=== PATIENT | male | born 1950 | race Caucasian/White ===

== ENCOUNTER 2020-07-29 06:27 | Day surgery (SDC) | payer OTHER, MEDICARE ==
[2020-07-23 09:06] LABS: Absolute Lymphocytes (CBC) 1.8 K/uL (0.7-4.9); Basophils % 0.6 % (0-1.3); Hematocrit 38.5 % (39.6-49.0); Lymphocytes % 18.1 % (15.3-44.8); MPV 7.5 fL (7.6-11.3); RBC Red Blood Cell Count 4.38 M/uL (4.33-5.43)
[2020-07-23 09:07] LABS: Protime INR 0.95
--- NOTE | 2020-07-23 09:08 | RAD REPORT ---
EXAM DESCRIPTION: RAD - Chest Pa And Lat (2 Views) - 07/23/2020 9:01 am CLINICAL HISTORY: PREOP Chest pain. COMPARISON: Stone Protocol dated 07/08/2020 FINDINGS: The lungs are clear. The heart is normal in size. No displaced fractures. IMPRESSION: No acute or concerning finding suspected.
[2020-07-23 10:48] LABS: Potassium 4.3 mmol/L (3.5-5.1)
--- NOTE | 2020-07-24 05:14 | EKG ---
Test Date: 2020-07-23 Test Time: 08:39:18 Emergency Veterinary Technician: JOHAN MEASUREMENT RESULTS: Intervals: Rate: 71 OR: 154 QRSD: 94 QT: 410 QTc: 445 [place]: P: 72 OR: 154 QRS: -17 T: 62 INTERPRETIVE STATEMENTS: Normal sinus rhythm Normal ECG No previous ECG available for comparison Electronically Signed On 07-24-20 05:11:26 SPECIAL NEEDS TEACHER by Kenny Arceo
[2020-07-29] MEDS ORDERED: CEFAZOLIN/SWI 2gm 2 GM/20 ML SYR ONE (07:09)
[2020-07-29] MEDS ORDERED: Ringers Lactate 1,000 ML IV ONE (07:09)
[2020-07-29] MEDS ORDERED: propofoL 200 MG/20 ML VIAL IV ONE (07:39)
[2020-07-29] MEDS ORDERED: FENTANYL CITR 100 MCG/2 ML ONE (07:39)
[2020-07-29] MEDS ORDERED: LIDOCAINE 1% MPF 5 ML VIAL ONE (07:39)
[2020-07-29] MEDS ORDERED: ONDANSETRON 4 MG/2 ML VIAL ONE (08:34)
--- NOTE | 2020-07-29 08:48 | RAD REPORT ---
EXAM DESCRIPTION: RAD - Urethrocystogrphy Retrograde - 07/29/2020 8:42 am CLINICAL HISTORY: ICD N 20.0 FINDINGS: Twenty fluoroscopic spot images obtained. Fluoroscopy time 57 seconds Each ureter was cannulated and contrast administered.. Examination was performed by Dr Shelton. Bhavani yañez refer to his report for additional findings
[2020-07-29 09:03] VITALS: O2SAT 100
[2020-07-29] MEDS ORDERED: HYDROCODONE/APAP 5/325 MG TAB PO PRN (09:18)
[2020-07-29] MEDS ORDERED: PHENAZOPYRIDINE 100MG TAB PO ONE (09:18)
[2020-07-29] MEDS ORDERED: OPIUM/BELLADONNA SUPPOS (30-16.2 MG) PR ONE (09:39)
[2020-07-29 09:55] VITALS: BP 129/77; TEMP 97.1
[2020-07-29] MEDS ORDERED: HYDROCODONE/APAP 5/325 MG TAB ONE (10:05)
--- NOTE | 2020-07-29 10:31 | OP ---
Surgeon: REKHA DAVIS Preoperative Diagnoses: 1. Abnormal voided cytology. 2. Hematuria. Postoperative Diagnoses: 1. Abnormal voided cytology. 2. Hematuria. 3. Questionable right mid pole posterior calyx filling defect. Procedures: 1. Cystoscopy and random bladder biopsies. 2. Bilateral retrograde pyelographies. 3. Bilateral ureteral wash barbotage cytologies. 4. Right distal ureteroscopy. 5. Right ureteral stent placement. 6. Urethral Hurt catheter placement. Indication For Procedure: Mr. Grace presented to Urology Clinic for evaluation of hematuria. He had associated chronic kidney disease and was unable to receive IV contrast associated with the CT planned urogram. As such, the noncontrast CT was relatively unremarkable as was the cystoscopy, but voided cytology sent in evaluation of the upper tracts in the absence of the IV contrast administration and delayed phase scanning revealed cells suspicious for high-grade urothelial carcinoma. As a result, he was counseled on the need for evaluation as described above. Procedure In Detail: The patient was consented in the preoperative holding area before being transferred to the operative suite where general anesthesia was induced. He was given Ancef 2 g IV antimicrobial prophylaxis and pneumo boots were provided for DVT prophylaxis. He was placed in the lithotomy position, padded and secured to the table appropriately. His genitalia were prepped using Hibiclens, and he was draped in standard fashion. The case was begun using a 22-South African rigid cystoscope to traverse the urethra and into the bladder with ease. The bladder was again surveyed, and as previously observed, no mucosal lesions, foreign bodies or stones were noted throughout. The ureteral orifices were orthotopic in location. The left ureteral orifice was cannulated first and a retrograde pyelogram was performed. Left retrograde pyelography: Using a 70:30 mixture of Omnipaque and saline, contrast was injected via the lumen of a 5-South African ureteral access catheter, which had been inserted into the ureteral orifice on the left side. Contrast did propagate with ease of a nondilated ureter without any evidence of filling defect before entering a normal renal pelvis without any evidence of caliectasis or pelviectasis and no sign of filling defect observed. As a result, the contrast was allowed to emanate and drain from the kidney on the left side and urine was taken for barbotage cytology from the left side. While this was being done, I turned my attention to the right ureteral orifice which was separately cannulated using the tip of a 5-South African ureteral access catheter. Right retrograde pyelogram: Using that similar 70:30 mixture of Omnipaque and saline, that contrast mixture was again injected via the 5-South African ureteral access catheter and did propagate up a relatively nondilated ureter into the renal pelvis on the right side. No ureteral filling defects were noted and the calices were sharp without any evidence of pelvocaliectasis. With the initial contrast bolus, the upper pole and lower pole calices did delineate as well as a mid pole anterior calyx, but a mid pole what was suspected to be posterior calyx did not completely delineate. As a result, a repeat fluoroscopic imaging was performed with gentle increasing contrast boluses being administered, and yet despite this, I was unable to completely fill the right mid pole posterior calyx. Eventually, there was evidence of pyelovenous reflux of the contrast, and so I then elected to attempt right-sided ureteroscopy to evaluate that potential filling defect. I then passed a Sensor wire via the 5-South African ureteral access catheter with a coil observed fluoroscopically in the upper pole of the right kidney. I then passed over the Sensor wire a dual-lumen catheter into the mid distal ureter before it reached a point of resistance. Gentle contrast injection did confirm the adequate intraureteral localization of the wire and the dual-lumen catheter. I then placed a Bentson guidewire via the second lumen of the dual-lumen catheter alongside the Sensor wire into the upper pole of the kidney. I then attempted to perform ureteroscopy via the Bentson guidewire, but the ureteroscope would not pass beyond the ureteral orifice. As a result, I employed the ureteral access sheath into the ureteral orifice and distal ureter. The ureteral access sheath similarly met a point of resistance in the mid distal ureter. I thus passed the ureteroscope via the ureteral access sheath over the wire until it reached the point of obstruction. I then removed the wire and utilized pressurized saline irrigation to visualize the point of obstruction and it was revealed to be an area of likely ureteral spasm with extreme tightening around the indwelling Sensor wire. As a result, despite gentle attempts to navigate the ureteroscope using pressurized irrigation beyond the point of obstruction, I was unable to pass the ureteroscope into the mid or proximal ureter in order to survey the mid pole posterior calyx in question. As a result, I aborted further attempts at ureteroscopy and back-loaded the cystoscope over the indwelling safety wire and placed a 6-South African by 26 cm double-J right-sided ureteral stent. I then turned my attention to the bladder, which was decompressed of urine and any blood clot from the manipulation on the right side, and I performed random bladder biopsies. Prior to doing this, however, and of note, prior to removing the dual-lumen catheter prior to his stent placement as mentioned above, I did take ureteral wash cytology from the right side, which was sent as right ureteral barbotage cytology back to the bladder biopsies. Random bladder biopsies: I then used cold cup biopsy forceps to sample the bladder in the trigone, posterior dome, left lateral wall, and right lateral wall. Each of these specimens was sent for pathologic analysis and then the base of each of these lesions was fulgurated using Bugbee electrode at a cautery setting of 30. I then decompressed his bladder to confirm complete hemostasis, and when hemostasis was noted, I refilled his bladder and placed an 18-South African coude tip Hurt catheter to allow bladder rest. The patient was then taken out of the lithotomy position, awakened from general anesthesia, transferred to a stretcher and then transferred to the recovery room in good condition. Complications: None. Specimens Taken: 1. Left ureteral wash cytology. 2. Right ureteral wash cytology. 3. Bladder biopsies: Trigone, posterior, dome, left lateral wall, right lateral wall. Disposition: The patient will be discharged with the urethral Hurt catheter in place for bladder rest for 24 hours. The catheter may be removed tomorrow at home assuming they are able to do so and will be instructed prior to discharge on how to accomplish that. Followup should be established in 1-2 weeks to discuss the results of the pathology of each of the specimens above, and also to determine timing for planned right-sided definitive ureteroscopy and visualization of the mid pole posterior calyx filling defect in question. GURPREET/MODL Voice ID: [id number] Report ID: [id number] MALICK
== END 2020-07-29 10:30 | disposition home or self-care (01) ==
LOC: OR 06:27
PROVIDERS: ATTEND Urology
PROC: 0TBB8ZX Excision of Bladder, Via Natural or Artificial Opening Endoscopic, Diagnostic (ICD-10-PCS; principal; 2020-07-29 07:30)
PROC: 0T768DZ Dilation of Right Ureter with Intraluminal Device, Via Natural or Artificial Opening Endoscopic (ICD-10-PCS; 2020-07-29 07:30)
DX: R82.90 Unspecified abnormal findings in urine (principal); R31.9 Hematuria, unspecified; N40.1 Benign prostatic hyperplasia with lower urinary tract symptoms; Z20.822 Contact with and (suspected) exposure to COVID-19
CPT/HCPCS: 93005; 87088; 85025; 87086; 80048; 36415; 88108; 85610; 88305; 71046; 74450; 51610; 52204; 52332; 52351; U0002; J2704; J3010; J0690; J7120; J2405

== ENCOUNTER 2020-09-02 08:29 | Day surgery (SDC) | payer OTHER, MEDICARE ==
[2020-08-29 15:29] LABS: Absolute Lymphocytes (CBC) 2.1 K/uL (0.7-4.9); Basophils % 0.8 % (0-1.3); Hematocrit 33.7 % (39.6-49.0); Lymphocytes % 31.5 % (15.3-44.8); MPV 7.6 fL (7.6-11.3); RBC Red Blood Cell Count 3.85 M/uL (4.33-5.43)
[2020-08-29 15:30] LABS: Protime INR 0.97
[2020-08-29 15:37] LABS: Potassium 4.4 mmol/L (3.5-5.1)
[~2020-09-02 08:29] MED LIST: AMPICILLIN SODIUM 2 GM in NA CHLORIDE 0.9% 100 ML IVPB ONE; Gentamicin Inj 200 MG in NA CHLORIDE 0.9% 100 ML IVPB ONE
[2020-09-02] MEDS ORDERED: Ringers Lactate 1,000 ML IV ONE (09:03)
[2020-09-02] MEDS ORDERED: FENTANYL CITR 100 MCG/2 ML ONE ×2 (10:13→11:43)
[2020-09-02] MEDS ORDERED: LIDOCAINE 1% MPF 5 ML VIAL ONE (10:13)
[2020-09-02] MEDS ORDERED: propofoL 200 MG/20 ML VIAL IV ONE (10:13)
[2020-09-02] MEDS ORDERED: ONDANSETRON 4 MG/2 ML VIAL ONE (10:19)
[2020-09-02] MEDS ORDERED: Mastisol Adhesive Liq ONE (12:00)
[2020-09-02] MEDS ORDERED: PHENAZOPYRIDINE 100MG TAB PO ONE ×2 (12:13→13:00)
[2020-09-02] MEDS ORDERED: HYDROCODONE/APAP 5/325 MG TAB PO PRN (12:13)
--- NOTE | 2020-09-02 12:19 | RAD REPORT ---
EXAM DESCRIPTION: RAD - Urethrocystogrphy Retrograde - 09/02/2020 11:49 am FINDINGS: Fluoro time was 0.37 minutes. There are approximately 25 fluoroscopic KUB images obtained during fluoroscopic assisted replacement and/or repositioning of a right ureteral stent. No suspicious or unexpected finding.
[2020-09-02 12:21] VITALS: O2SAT 100
[2020-09-02 12:49] VITALS: BP 164/90; TEMP 97
[2020-09-02] MEDS ORDERED: HYDROCODONE/APAP 5/325 MG TAB ONE (13:00)
--- NOTE | 2020-09-02 13:58 | OP ---
Date of Procedure: 09/02/2020 Surgeon: REKHA DAVIS Preoperative Diagnoses: 1.Abnormal voided/urinary cytology. 2.Right upper tract calyceal filling defect. Postoperative Diagnoses: 1.Abnormal voided/urinary cytology. 2.Right upper tract calyceal filling defect. Principle Procedures: 1.Cystoscopy. 2.Transurethral resection of the prostate/prostatic urethral biopsies. 3.Right ureteroscopy and pyeloscopy. 4.Right ureteral stent exchange. Indication For Procedure: Mr. Grace is a 70-year-old gentleman, who underwent evaluation for hemat uria with chronic kidney disease and a CT scan completed without IV contrast. He had a voided cytolo gy which was suspicious for urothelial malignancy; so he earlier presented to the operating room for evaluation and underwent bladder biopsies as well as left retrograde pyelography and right retrograde pyelography. There was a questionable lower pole posterior calyx filling defect, which required fur ther evaluation and direct visualization, but because of some ureteral stenosis/spasm, I was unable t o pass the ureteroscope all the way into his kidneys. As a result, a stent was placed and he returns today for definitive management. Prior biopsies of the bladder and bilateral ureteral wash cytologi es were negative for malignancy. The remnant areas needing evaluation included the prostatic urethra and direct visualization of the possible filling defect in the right lower and mid pole calyx. Procedure In Detail: The patient was consented in the preoperative holding area before being transfe rred to the operative suite where general anesthesia was induced. He was given ampicillin and gentam icin IV antimicrobial prophylaxis. Pneumo boots were provided for DVT prophylaxis. He was placed woo pine on the procedure table, padded and secured to the table appropriately. The case was begun after prepping his genitalia with Hibiclens using urethral sounds to dilate the meatus and fossa navicular is. Then utilizing a visual obturator and the 26-Prydeinig resectoscope, I traversed the urethra and in to the bladder. The bladder was decompressed of clear yellow urine, and the areas of prior biopsy si karen revealed only mild mucosa that was hemorrhagic. I then surveyed the prostatic urethra. While th ere was some edematous area within the right component of the prostatic urethra and likely from the i rritation from the ureteral stent, no suspicious mucosal lesions were noted. 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 Each of these were sent for pathologic analysis. I then identified the right ur eteral stent, grasped it, and delivered via the meatus. A Sensor wire was then passed via the stent and did coil in the mid upper ureter. The stent was removed over the wire, and a dual-lumen catheter was placed into the mid ureter. A retrograde pyelogram was then performed. Right retrograde pyelography: Using a 70:30 mixture of Omnipaque and saline, contrast was injected via the second lumen of the dual -lumen catheter and did propagate up the ureteral lumen before entering a moderately dilated renal pe lvis from the indwelling stent. No filling defects were specifically noted with the exception of a p ossible atretic or missing lower pole posterior calyx. As this had been previously observed, I then passed a Bentson guidewire into the collecting system via the second lumen of the dual-lumen catheter , and over the Bentson guidewire, I attempted to pass the flexible ureteroscope. It would not pass b eyond the distal ureter due to an area of stenosis there present despite the stent. As a result, I r emoved the scope and passed a ureteral access sheath into the mid proximal ureter beyond the area of stenosis. I was then able to pass the scope over the indwelling Bentson guidewire into the upper dorothea e of the kidney. I then carefully surveyed each of the calices from the upper into the mid pole and lower pole calices including the area of suspected excluded calyx. It was not indeed excluded, in fa ct, it was just a blunted calyx which likely did not appear distinct given the anterior-posterior flu oroscopic imaging technique. Each of the calices were again surveyed in detail after an antegrade py elogram was again performed to confirm they had all been visualized, and even some areas of calyx laina t more visible via the pyelography. No concerning mucosal lesions were noted in either of those loca tions. No foreign bodies or stones were also noted. As a result, I surveyed the renal pelvis and it s entirety before surveying down the proximal into the mid and distal ureter. With no filling defect s or mucosal lesions noted along the way, ureteroscopy was completed. I then back-loaded the cystosc ope over the indwelling safety wire and passed a 6-Prydeinig by 26 cm double-J right ureteral stent with a coil observed fluoroscopically within the upper pole and 1 cystoscopically within the bladder. Hi s bladder was then decompressed of fluid and urine, and the stent was left on a tether. The stent wa s then secured to the glans penis using Mastisol and Steri-Strips, and he was taken out of the lithot jack position. He was then awakened from general anesthesia before being transferred to a stretcher a tn then to the recovery room in good condition. Complications: None. Estimated Blood Loss: Less than 20 mL. Discharge Disposition: He may follow up in the Urology Clinic with nurse practitionerAleln in the next 2 or 3 days for tethered ureteral stent removal. A dose of antimicrobial prophylaxis may be provided at that time. Subsequent followup of the pathology from the prostatic urethral biopsies should occur with me in the office in approximately 1-2 weeks. GURPREET/VICTOR HUGO Voice ID: [id number] Report ID: [id number]
== END 2020-09-02 13:26 | disposition home or self-care (01) ==
LOC: OR 08:29
PROVIDERS: ATTEND Urology
PROC: 0T768DZ Dilation of Right Ureter with Intraluminal Device, Via Natural or Artificial Opening Endoscopic (ICD-10-PCS; 2020-09-02)
PROC: 0TBD8ZX Excision of Urethra, Via Natural or Artificial Opening Endoscopic, Diagnostic (ICD-10-PCS; principal; 2020-09-02 09:30)
DX: N40.1 Benign prostatic hyperplasia with lower urinary tract symptoms (principal); R82.90 Unspecified abnormal findings in urine; Z20.822 Contact with and (suspected) exposure to COVID-19
CPT/HCPCS: 52204; 52332; 52351; 85025; 87086; 80048; 36415; 85610; 88305; 74450; 51610; U0003; J2704; J1580; J3010 ×2; J7120; J2405; J0290; 87088

== ENCOUNTER 2022-07-09 15:53 | Emergency (ER) | payer OTHER, MEDICARE ==
--- OUTSIDE RECORDS SUMMARY | 2022-07-09 16:28 | XMS REPORT | Continuity of Care Document ---
:1950 Author Organization [facility] t Address [address] [place] [address] Dr. Ch[address] [place] [address] Care Team Providers Name Role Phone No, Pcp [facility] Primary Care Physician Unavailable Robin Brice Attending Clinician Unavailable REKHA DAVIS Attending Clinician Unavailable Rekha Davis MD Attending Clinician Aubrey Sales MD Attending Clinician Mecca Acuna CRNA Attending Clinician Omega GUIDO, Юлия Rosen Attending Clinician Unavailable Joel Yoon MD Attending Clinician Lab, [facility] Pob I Attending Clinician Unavailable Patricia Blackman Attending Clinician Doctor Unassigned, [place] Attending Clinician Unavailable Gene Attending Clinician Unavailable Gwendolyn RIVAS, Dmitriy Etienne Attending Clinician Ave Johnson Attending Clinician Clemente Jackson Attending Clinician REKHA DAVIS Admitting Clinician Unavailable Gene Admitting Clinician Unavailable Payers Payer Name Policy Type Policy Number Effective Date Expiration Date S ource MEDICARE A B [id number] 2014 00:00:00 [facility] [id number] 2022 HEALTHCARE 00:00:00 TML GBRP CLAIMS [id number] 2017 00:00:00 [place]IC[place] B[place]: [id number] 2014 [employer] 00:00:00 HEALTH SYSTEM [id number] 2019 OPTIONS (MEDICARE 00:00:00 SUPPLEMENT) Problems Condition Condition Condition Status Onset Resolution Last Treating Co mments Source Name Details Category Date Date Treatment Clinician Date 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, of kidney, 00:00: Me dical left left Center Hyperchole Hyperchole Problem Active M atagor sterolemia sterolemia 8-27 da 00:00: Medical 00 Group M54.5 - M54.5 - Diagnosis Active 2018-052019-02-26 Memoria LOW BACK LOW BACK 0-14 07:51:00 l PAIN PAIN 00:01: Gil Active 00 02/26/2019 NATASHA [place] RIGHT EYE RIGHT EYE Diagnosis Active 2013-10-15 Memoria RETINAL RETINAL 2-17 16:23:00 l DETACHMENT DETACHMENT 00:00: [facility] 379.21 379.21 00 Active 07/02/2013 [facility] [id number] Prostate Problem [place] [address]197 nodule [facility] [id number] Erectile Problem Comm on dysfunctio Spirit n, - [facility] un[facility] d erectile [facility] dysfunctio Medica l n type Thor [id number] Constipati Problem Com mon on, Spirit unspecifie - [facility] d St constipati [facility] on [facility] [id number] Microscopi Problem Co mmon c Spirit hematuria - [facility] [id number] BPH loc w Problem Com mon urin Spirit obs/LUTS - [facility] [id number] 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 St present on [facility] urine Medical cytology Center [id number] Abnormal Problem Comm on bladder [facility] cytology [facility] Disorder Other Problem Common of kidney specified Spir it and/or disorders - CHI ureter of kidney St and ureter [facility] Renal mass Renal mass Problem C ommon Spirit [facility] 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 - [facility] inhibited Center sexual excitement Chronic Chronic Problem Resolve 2019-02-28 M emoria back pain back pain d 22:42:23 l (disorder) (disorder) He rmann Resolved Problem 02/28/2019 NATASHA Cordero,[facility] Hyperlipid Hyperlipi Problem Resolve 2019-02-28 Memoria emia demia d 22:42:23 l (disorder) (disorder) He rmann Resolved Problem 02/28/2019 [facility] disc(Confi disc(Conf Problem Resolve 2013-07-05 Memoria rmed) irmed) d 16:42:33 l Resolved Gil Problem 07/05/2013 [facility] Allergies, Adverse Reactions, Alerts Allergy Allergy Status Severity Reaction(s) Onset Inactive Treating Comm ents Source Name Type Date Date Clinician LACTASE DRUG Active Other-Cmnt 2017-05 Unive rs INGREDI 0-08 ity of 00:00: [address] Branch Lactase Drug Active 2017-[address] Allergy 0-08 reaction( [facility] 00:00: s): Other Medical 00 - See Center commentsh eadache LACTASE Allergy Active 2017-[address] [facility] 0-08 [facility] 00:00: Medical Center No Known No Known Active Memori a Medicati Medicati l on on Gil Allergie Allergie s s Lactase Lactase Active Unknown [facility] - [facility] Social History Social Habit Start Date Stop Date Quantity Comments Source History SDOH [facility] Alcohol Frequency Medical Center History SDOH [facility] Alcohol Std Drinks Medica l Center History SDOH [facility] Alcohol Binge Medical [facility] ter History of tobacco [facility]oker [facility] use [facility] Alcohol intake 2022-07-06 2022-07-06 Ex-drinker [facility] 00:00:00 00:00:00 (finding) Medical Center Exposure to 2022-06-25 2022-07-[address] [facility] SARS-CoV-2 (event) 00:00:00 08:30:00 Medica l Center Cigarettes smoked 2022-06-09 2022-06-[address] [facility] current (pack per 00:00:00 00:00:00 Medical Center day) - Reported Tobacco use and 2022-06-09 2022-06-[address] [facility] exposure 00:00:00 00:00:00 Medical Center History SDOH 2022-06-09 2022-06-[address] [facility] Alcohol Comment 00:00:00 00:00:00 Medical C enter Sex Assigned At [address] [facility] 00:0000 00:00:00 Medical Center Smoking Status Start Date Stop Date Source Light Tobacco Smoker Zoë Lopez edical Group Former smoker 2022-06-09 00:00:00 2022-06-09 00:00:[address] [facility] [facility] Current Smoker 2022-06-03 00:00:00 Common [facility] t [facility] Medical Ce nter Medications Ordered Filled Start Stop Current Ordering Indication Dosage Frequency Signature Comments Components Source Medication Medication Date Date Medication? Clinician (SIG) Name Name rosuvastati Yes 20mg QD Take [address] n (CRESTOR) 2-23 by mouth Luke s 20 MG 15:24: daily. Medical tablet 52 Center losartan Yes 25mg QD Take [address] (COZAAR) 25 2-23 by mouth Luke s MG tablet 15:24: daily. Medica l 52 Center pantoprazol Yes 40mg QD Take [address] e 2-23 by mouth [facility]ukes (PROTONIX) 15:24: daily. Medic al 40 MG 52 Center tablet aspirin 81 Yes 81mg QD Take [address] MG EC 2-23 by mouth [facility]ukes tablet 15:24: daily. [place] [address] Center dorzolamide Yes 1[drp] Q.5D Place [address] (TRUSOPT) 2 2-23 drop into [place] es % 15:24: the right Medical ophthalmic 52 eye 2 Center solution (two) times daily. latanoprost Yes 1[drp] QD Place [address] (XALATAN) 2-23 drop into [facility] 0.005 % 15:24: the right Medic al ophthalmic 52 eye Center solution nightly. acetaminoph 2022- Yes 650mg Take [address] en 2-23 03-25 tablets [facility] (TYLENOL) 00:00: 23:59 (650 mg Medi ham 325 MG 00 :00 total) by Center tablet mouth every 6 (six) hours for 30 days. docusate 2022- Yes 100mg Q.5D Take 1 [facility] S t sodium 07-08 capsule [facility]ukes (COLACE) 00:00: 23:59 (100 mg Medic al 100 MG 00 :00 total) by Center capsule mouth 2 (two) times daily for 30 days. lidocaine 2022- Yes 2{patch Q24H Place [address] (LIDODERM) 07-08 } patches [facility] 5 % patch 00:00: 23:59 onto the Med ical 00 :00 skin daily Center for 15 days Remove & Discard patch within 12 hours or as directed by . polyethylen 2022- Yes 17g Q.5D Take [address] e glycol 07-08 by mouth 2 Luke s (GLYCOLAX) 00:00: 23:59 (two) Medic al 17 gram 00 :00 times Center packet daily for 14 days. traMADoL 2022- Yes 50mg Take [address] (ULTRAM) 50 07-08 tablet (50 L ukes mg tablet 00:00: 23:59 mg total) Me dical 00 :00 by mouth Center every 8 (eight) hours as needed for Pain for up to 5 days. Max Daily Amount: 150 mg levoFLOXaci 2022- Yes 500mg QD Take [address] n 07-08 tablet [facility]ukes (LEVAQUIN) 00:00: 23:59 (500 mg Med ical 500 MG 00 :00 total) by Center tablet mouth daily for 3 days Start taking 1 day before your appointmen t for catheter removal with Dr. Davis. Tamsulosin Tamsulosin 2021-05- No 1{capsu QD Tamsulosin HCl 0.4 MG HCl 0.4 MG 06-17 le} HCl 0.4 MG 00:00: 00:00 00 :00 Tamsulosin Tamsulosin 2021-05- No 1{capsu QD Tamsulosin HCl 0.4 MG HCl 0.4 MG 06-17 le} HCl 0.4 MG 00:00: 00:00 00 :00 Tamsulosin Tamsulosin 2021-05- No 1{capsu QD Tamsulosin HCl 0.4 MG HCl 0.4 MG 06-17 le} HCl 0.4 MG 00:00: 00:00 00 :00 Tamsulosin Tamsulosin 2021-2022- No 1{capsu QD Tamsulosin HCl 0.4 MG HCl 0.4 MG 06-17 le} HCl 0.4 MG 00:00: 00:00 00 :00 Tamsulosin Tamsulosin 2021-3- No 1{capsu QD Tamsulosin HCl 0.4 MG HCl 0.4 MG 06-17 le} HCl 0.4 MG 00:00: 00:00 00 :00 Tadalafil Tadalafil 2021-2022- No Tadalafil 20 MG 20 MG 06-17-30 20 MG 00:00: 00:00 00 :00 Tadalafil Tadalafil 2021-2022- No Tadalafil 20 MG 20 MG -06 21-30 20 MG 00:00: 00:00 00 :00 Tadalafil Tadalafil 2021-3- No Tadalafil 20 MG 20 MG 06-17-30 20 MG 00:00: 00:00 00 :00 Tadalafil Tadalafil 2021-3- No Tadalafil 20 MG 20 MG 06-17-30 20 MG 00:00: 00:00 00 :00 Tadalafil Tadalafil 2021-3- No Tadalafil 20 MG 20 MG - 06-30 20 MG 00:00: 00:00 00 :00 TRAMADOL 50 2020-0 Yes [id number] TAKE 1 Univers mg tablet 4-09 TABLET BY ity o f 00:00: MOUTH EVERY 8 Medical HRS Branch NEEDED FOR PAIN TRAMADOL 50 2020-0 Yes [id number] TAKE 1 Univers mg tablet 4-09 TABLET BY ity o f 00:00: MOUTH EVERY 8 Medical HRS Branch NEEDED FOR PAIN TRAMADOL 50 2020-0 Yes [id number] TAKE 1 Univers mg tablet 4-09 TABLET BY ity o f 00:00: MOUTH 00 EVERY 8 Medical HRS Branch NEEDED FOR PAIN TRAMADOL 50 2020-0 Yes [id number] TAKE 1 Univers mg tablet 4-09 TABLET BY ity o f 00:00: MOUTH 00 EVERY 8 Medical HRS Branch NEEDED FOR PAIN TRAMADOL 50 2020-0 Yes [id number] TAKE 1 Univers mg tablet 4-09 TABLET BY ity o f 00:00: MOUTH [place] 00 EVERY 8 Medical HRS Branch NEEDED FOR PAIN TRAMADOL 50 2020-0 Yes [id number] TAKE 1 Univers mg tablet 4-09 TABLET BY ity o f 00:00: MOUTH [place] 00 EVERY 8 Medical HRS Branch NEEDED FOR PAIN traMADol 50 2018-0 Yes [id number] 50mg Take 1 Univers mg tablet 8-19 tablet by ity o f 00:00: mouth [place] 00 every 8 Medical (eight) Branch hours as needed for Pain (scale 4-6). traMADol 50 2018-0 Yes [id number] 50mg Take 1 Univers mg tablet 8-19 tablet by ity o f 00:00: mouth [place] 00 every 8 Medical (eight) Branch hours as needed for Pain (scale 4-6). traMADol 50 2018-0 Yes [id number] 50mg Take 1 Univers mg tablet 8-19 tablet by ity o f 00:00: mouth [place] 00 every 8 Medical (eight) Branch hours as needed for Pain (scale 4-6). traMADol 50 2018-0 Yes [id number] 50mg Take 1 Univers mg tablet 8-19 tablet by ity o f 00:00: mouth [place] 00 every 8 Medical (eight) Branch hours as needed for Pain (scale 4-6). traMADol 50 2018-0 Yes [id number] 50mg Take 1 Univers mg tablet 8-19 tablet by ity o f 00:00: mouth [place] 00 every 8 Medical (eight) Branch hours as needed for Pain (scale 4-6). traMADol 50 2018-0 2020- No [id number] 50mg Take 1 Univers mg tablet 8-19 04-09 tablet by ity of 00:00: 00:00 mouth [place] 00 :00 every 8 Medical (eight) Branch hours as needed for Pain (scale 4-6). traMADol 50 2018-0 2020- No [id number] 50mg Take 1 Univers mg tablet 8-19 04-09 tablet by ity of 00:00: 00:00 mouth [place] 00 :00 every 8 Medical (eight) Branch hours as needed for Pain (scale 4-6). gadoterate 2019-0 2019- No .2mL/kg 18.78 mL Univers meglumine 8-13 08-13 (0.2 mL/kg ity of (DOTAREM-20 14:30: 14:30 ?93.9 kg), [place] mL) 00 :00 Intravenou Medical injection s, ONCE, 1 Bran ch 18.78 mL dose, Tue12/26/18 at 0930, Routine lovastatin 2018- Yes 20mg Take 20 mg U nivers 20 mg 24 hr 7-22 by mouth ity of tablet 17:00: daily. [address] Multivitami Yes Take 1 Univ ers ns-Minerals 7-22 TAB-CAP/M2 it y of -Lutein 17:00: by mouth [place] (MULTIVITAM 21 daily. Medica l IN 50 PLUS) Branch Tab lovastatin Yes 20mg Take 20 mg U nivers 20 mg 24 hr 7-22 by mouth ity of tablet 17:00: daily. [address] Multivitami Yes Take 1 Univ ers ns-Minerals 7-22 TAB-CAP/M2 it y of -Lutein 17:00: by mouth [place] (MULTIVITAM 21 daily. Medica l IN 50 PLUS) Branch Tab lovastatin Yes 20mg Take 20 mg U nivers 20 mg 24 hr 7-22 by mouth ity of tablet 17:00: daily. [address] Multivitami Yes Take 1 Univ ers ns-Minerals 7-22 TAB-CAP/M2 it y of -Lutein 17:00: by mouth [place] (MULTIVITAM 21 daily. Medica l IN 50 PLUS) Branch Tab lovastatin Yes 20mg Take 20 mg U nivers 20 mg 24 hr 7-22 by mouth ity of tablet 17:00: daily. [address] Multivitami Yes Take 1 Univ ers ns-Minerals 7-22 TAB-CAP/M2 it y of -Lutein 17:00: by mouth [place] (MULTIVITAM 21 daily. Medica l IN 50 PLUS) Branch Tab lovastatin 2018-0 Yes 20mg Take 20 mg U nivers 20 mg 24 hr 7-22 by mouth ity of tablet 17:00: daily. [address] Multivitami 2018- Yes Take 1 Univ ers ns-Minerals 7-22 TAB-CAP/M2 it y of -Lutein 17:00: by mouth [place] (MULTIVITAM 21 daily. Medica l IN 50 PLUS) Branch Tab lovastatin 2018- Yes 20mg Take 20 mg U nivers 20 mg 24 hr 7-22 by mouth ity of tablet 17:00: daily. [address] Multivitami Yes Take 1 Univ ers ns-Minerals 7-22 TAB-CAP/M2 it y of -Lutein 17:00: by mouth [place] (MULTIVITAM 21 daily. Medica l IN 50 PLUS) Branch Tab lovastatin Yes 20mg Take 20 mg U nivers 20 mg 24 hr 7-22 by mouth ity of tablet 17:00: daily. [address] Multivitami Yes Take 1 Univ ers ns-Minerals 7-22 TAB-CAP/M2 it y of -Lutein 17:00: by mouth [place] (MULTIVITAM 21 daily. Medica l IN 50 PLUS) Branch Tab lovastatin Yes 20mg Take 20 mg U nivers 20 mg 24 hr 7-22 by mouth ity of tablet 17:00: daily. [address] lovastatin Yes 20mg Take 20 mg U nivers 20 mg 24 hr 7-22 by mouth ity of tablet 17:00: daily. [address] Multivitami Yes Take 1 Univ ers ns-Minerals 7-22 TAB-CAP/M2 it y of -Lutein 17:00: by mouth [place] (MULTIVITAM 21 daily. Medica l IN 50 PLUS) Branch Tab lovastatin Yes 20mg Take 20 mg U nivers 20 mg 24 hr 7-22 by mouth ity of tablet 17:00: daily. [address] Multivitami Yes Take 1 Univ ers ns-Minerals 7-22 TAB-CAP/M2 it y of -Lutein 17:00: by mouth [place] (MULTIVITAM 21 daily. Medica l IN 50 PLUS) Branch Tab Multivitami Yes Take 1 Univ ers ns-Minerals 7-22 TAB-CAP/M2 it y of -Lutein 17:00: by mouth [place] (MULTIVITAM 21 daily. Medica l IN 50 PLUS) Branch Tab lovastatin Yes 20mg Take 20 mg U nivers 20 mg 24 hr 7-22 by mouth ity of tablet 17:00: daily. [address] Multivitami Yes Take 1 Univ ers ns-Minerals 7-22 TAB-CAP/M2 it y of -Lutein 17:00: by mouth [place] (MULTIVITAM 21 daily. Medica l IN 50 PLUS) Branch Tab lovastatin Yes 20mg Take 20 mg U nivers 20 mg 24 hr 7-22 by mouth ity of tablet 17:00: daily. [address] Multivitami Yes Take 1 Univ ers ns-Minerals 7-22 TAB-CAP/M2 it y of -Lutein 17:00: by mouth [place] (MULTIVITAM 21 daily. Medica l IN 50 PLUS) Branch Tab lovastatin Yes 20mg Take 20 mg U nivers 20 mg 24 hr 7-22 by mouth ity of tablet 17:00: daily. [address] Multivitami Yes Take 1 Univ ers ns-Minerals 7-22 TAB-CAP/M2 it y of -Lutein 17:00: by mouth [place] (MULTIVITAM 21 daily. Medica l IN 50 PLUS) [place] Tab metoprolol Yes 25 mg = 1 Me moria tartrate 25 2-18 tab, PO, l mg oral 11:12: BID, # 180 Herm shelia tablet 00 tab, 0 Refill(s) lisinopril Yes 2.5 mg = 1 M emoria 2.5 mg oral 2-18 tab, PO, l tablet 11:12: Daily, # [place] 00 30 tab, 0 Refill(s) clopidogrel Yes 75 mg = 1 M emoria 75 MG Oral 2-03 tab, PO, l Tablet 13:00: Daily, # [place] [Plavix] 00 30 tab, 0 Refill(s) Latanoprost Latanoprost No 1{drop_ QD Latanopros 0.005 % 0.005 % into_af t 0.005 % fected_ eye_in_ the_eve jay} Crestor Crestor No Crestor Aspirin 81 Aspirin 81 No Aspirin 81 losartan losartan No losartan Vitamin C Vitamin C No 1{table QD Vitamin C 1000 MG 1000 MG t} 1000 MG Multivitami Multivitami No 1{table QD Multivitam n Adult - n Adult - t} in Adult - Pantoprazol Pantoprazol No Pantoprazo e Sodium e Sodium le Sodium Latanoprost Latanoprost No 1{drop_ QD Latanopros 0.005 % 0.005 % into_af t 0.005 % fected_ eye_in_ the_eve jay} Vitamin D3 Vitamin D3 No Vitamin D3 50,000 50,000 50,000 Multivitami Multivitami No 1{table QD Multivitam n Adult - n Adult - t} in Adult - Aspirin 81 Aspirin 81 No Aspirin 81 Vitamin C Vitamin C No 1{table QD Vitamin C 1000 MG 1000 MG t} 1000 MG losartan losartan No losartan Ventolin Ventolin No Ventolin HFA HFA HFA Crestor Crestor No Crestor Pantoprazol Pantoprazol No Pantoprazo e Sodium e Sodium le Sodium Aspirin 81 Aspirin 81 No Aspirin 81 Vitamin D3 Vitamin D3 No Vitamin D3 50,000 50,000 50,000 Vitamin C Vitamin C No 1{table QD Vitamin C 1000 MG 1000 MG t} 1000 MG Crestor Crestor No Crestor Ventolin Ventolin No Ventolin HFA HFA HFA Multivitami Multivitami No 1{table QD Multivitam n Adult - n Adult - t} in Adult - Pantoprazol Pantoprazol No Pantoprazo e Sodium e Sodium le Sodium losartan losartan No losartan Latanoprost Latanoprost No 1{drop_ QD Latanopros 0.005 % 0.005 % into_af t 0.005 % fected_ eye_in_ the_eve jay} Crestor Crestor No Crestor Vitamin C Vitamin C No 1{table QD Vitamin C 1000 MG 1000 MG t} 1000 MG Pantoprazol Pantoprazol No Pantoprazo e Sodium e Sodium le Sodium Aspirin 81 Aspirin 81 No Aspirin 81 Vitamin D3 Vitamin D3 No Vitamin D3 50,000 50,000 50,000 Latanoprost Latanoprost No 1{drop_ QD Latanopros 0.005 % 0.005 % into_af t 0.005 % fected_ eye_in_ the_eve jay} Ventolin Ventolin No Ventolin HFA HFA HFA Multivitami Multivitami No 1{table QD Multivitam n Adult - n Adult - t} in Adult - losartan losartan No losartan Crestor Crestor No Crestor Vitamin C Vitamin C No 1{table QD Vitamin C 1000 MG 1000 MG t} 1000 MG Pantoprazol Pantoprazol No Pantoprazo e Sodium e Sodium le Sodium Aspirin 81 Aspirin 81 No Aspirin 81 Vitamin D3 Vitamin D3 No Vitamin D3 50,000 50,000 50,000 Latanoprost Latanoprost No 1{drop_ QD Latanopros 0.005 % 0.005 % into_af t 0.005 % fected_ eye_in_ the_eve jay} Ventolin Ventolin No Ventolin HFA HFA HFA fluocinolon fluocinolon No fluocinolo [place] acetonide e acetonide ne d a oil 0.01 % oil 0.01 % acetonide Medical ear drops ear drops oil 0.01 % Group QD left ear QD left ear ear drops only only QD left ear only GaviLyte-G GaviLyte-G No GaviLyte-G [place] 236 236 236 da gram-22.74 gram-22.74 gram-22.74 Medical gram-6.74 gram-6.74 gram-6.74 Group gram-5.86 gram-5.86 gram-5.86 gram oral gram oral gram oral solution solution solution MIX AND MIX AND MIX AND TAKE TAKE TAKE DIRECTED DIRECTED DIRECTED latanoprost latanoprost No latanopros [place] 0.005 % eye 0.005 % eye t 0.005 % da drops drops eye drops Medical Group lovastatin lovastatin No lovastatin [place] 20 mg 20 mg 20 mg da tablet tablet tablet Medical Group Shingrix Shingrix No Shingrix [place] (PF) 50 (PF) 50 (PF) 50 da mcg/0.5 mL mcg/0.5 mL mcg/0.5 mL Medical intramuscul intramuscul intramuscu Group ar ar lar suspension, suspension, suspension kit kit , kit Multivitami Multivitami No 1{table QD Multivitam n Adult - n Adult - t} in Adult - losartan losartan No losartan Vitamin D3 Vitamin D3 No Vitamin D3 50,000 50,000 50,000 Ventolin Ventolin No Ventolin HFA HFA HFA Vital Signs Vital Name Observation Time Observation Value Comments Source WEIGHT 2022-07-07 11:00:00 100.381 kg WEIGHT 2022-07-07 05:17:00 81.103 kg HEIGHT 2022-07-05 08:30:00 182.9 cm WEIGHT 2022-07-05 08:30:00 99.791 kg HEIGHT 2022-06-09 10:13:00 182.9 cm WEIGHT 2022-06-09 10:13:00 99.791 kg WEIGHT 2022-07-07 11:00:00 100.381 kg WEIGHT 2022-07-07 05:17:00 81.103 kg HEIGHT 2022-07-05 08:30:00 182.9 cm WEIGHT 2022-07-05 08:30:00 99.791 kg HEIGHT 2022-06-09 10:13:00 182.9 cm WEIGHT 2022-06-09 10:13:00 99.791 kg WEIGHT 2022-07-07 11:00:00 100.381 kg WEIGHT 2022-07-07 05:17:00 81.103 kg HEIGHT 2022-07-05 08:30:00 182.9 cm WEIGHT 2022-07-05 08:30:00 99.791 kg HEIGHT 2022-06-09 10:13:00 182.9 cm WEIGHT 2022-06-09 10:13:00 99.791 kg height 2022-06-03 13:15:00 70 [in_i] [facility] weight 2022-06-03 13:15:00 219.6 [lb_av] [facility] temperature 2022-06-03 13:15:00 97.1 [degF] [facility] bmi 2022-06-03 13:15:00 31.51 kg/m2 [facility] oximetry 2022-06-03 13:15:00 100 % [facility] respiratory rate 2022-06-03 13:15:00 18 /min Comm on [facility] blood pressure 2022-06-03 13:15:00 137 mm[Hg] Common [facility] - systolic [facility] blood pressure 2022-06-03 13:15:00 71 mm[Hg] [facility] - diastolic [facility] height 2022-05-20 13:15:00 70 [in_i] [facility] weight 2022-05-20 13:15:00 226 [lb_av] [facility] temperature 2022-05-20 13:15:00 97.3 [degF] [facility] bmi 2022-05-20 13:15:00 32.42 kg/m2 Common S pirit [facility] oximetry 2022-05-20 13:15:00 99 % Common S pirit [facility] respiratory rate 2022-05-20 13:15:00 16 /min Comm on [facility] blood pressure 2022-05-20 13:15:00 116 mm[Hg] Common [facility] - systolic [facility] blood pressure 2022-05-20 13:15:00 77 mm[Hg] [facility] - diastolic [facility] height 2022-04-22 15:30:00 70 [in_i] [facility] weight 2022-04-22 15:30:00 221 [lb_av] Common [facility] temperature 2022-04-22 15:30:00 97.4 [degF] Common [facility] bmi 2022-04-22 15:30:00 31.71 kg/m2 Common S pirit [facility] oximetry 2022-04-22 15:30:00 97 % Common S [facility] respiratory rate 2022-04-22 15:30:00 16 /min Comm on [facility] blood pressure 2022-04-22 15:30:00 143 mm[Hg] Common [facility] - systolic [facility] blood pressure 2022-04-22 15:30:00 76 mm[Hg] [facility] - diastolic [facility] height 2022-04-16 10:30:00 70 [in_i] Common S pirit [facility] weight 2022-04-16 10:30:00 224 [lb_av] [facility] temperature 2022-04-16 10:30:00 97.5 [degF] Common S pirit [facility] bmi 2022-04-16 10:30:00 32.14 kg/m2 Common S pirit [facility] oximetry 2022-04-16 10:30:00 99 % Common S pirit - [facility] respiratory rate 2022-04-16 10:30:00 18 /min Comm on Spirit - [facility] blood pressure 2022-04-16 10:30:00 143 mm[Hg] [facility] - systolic [facility] blood pressure 2022-04-16 10:30:00 86 mm[Hg] [facility] - diastolic [facility] BP Diastolic 2020-01-24 00:00:00 76 mm[Hg] [facility] Height 2020-01-24 00:00:00 72 [in_i] [facility] BMI (Body Mass 2020-01-24 00:00:00 27.1 kg/m2 [facility] Index) Group BP Systolic 2020-01-24 00:00:00 132 mm[Hg] [facility] Body Weight 2020-01-24 00:00:00 200 [lb_av] [facility] BP Diastolic 2020-01-10 00:00:00 77 mm[Hg] [facility] Height 2020-01-10 00:00:00 72 [in_i] [facility] BMI (Body Mass 2020-01-10 00:00:00 27.2 kg/m2 [facility] 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) Group BP Systolic 2020-01-10 00:00:00 133 mm[Hg] [facility] Body Weight 2020-01-10 00:00:00 200.7 [lb_av] [facility] Systolic blood 2019-01-01 16:44:00 120 mm[Hg] Univer sity of pressure [facility] Diastolic blood 2019-01-01 16:44:00 76 mm[Hg] Unive rsity of pressure [facility] Heart rate 2019-01-01 16:44:00 71 /min [facility] Body temperature 2019-01-01 16:44:00 36.39 Meliza [facility] Respiratory rate 2019-01-01 16:44:00 17 /min [facility] Body height 2019-01-01 16:44:00 182.9 cm [facility] Body weight 2019-01-01 16:44:00 94.348 kg [facility] BMI 2019-01-01 16:44:00 28.21 kg/m2 [facility] [facility] Body height 2018-12-26 14:26:00 185.4 cm [facility] Body weight 2018-12-26 14:26:00 93.895 kg [facility] BMI 2018-12-26 14:26:00 27.31 kg/m2 [facility] Heart rate 2022-07-08 12:39:32 86 /min [facility] Respiratory rate 2022-07-08 12:39:32 18 /min [facility] Oxygen saturation in 2022-07-08 12:39:32 98 /min [facility] Arterial blood by Medical Ce nter Pulse oximetry Body temperature 2022-07-08 12:39:09 36.44 Meliza [facility] Systolic blood 2022-07-08 12:38:45 133 mm[Hg] [facility] Diastolic blood 2022-07-08 12:38:45 75 mm[Hg] [facility] Body weight 2022-07-07 11:00:00 100.381 kg [facility] BMI 2022-07-07 11:00:00 30.01 kg/m2 [facility] Body height 2022-07-05 08:30:00 182.9 cm [facility] Respitory Rate 2013-07-03 22:00:00 Memori al Gil Diastolic (mm Hg) 2013-07-03 22:00:00 Mem orial [place] Systolic (mm Hg) 2013-07-03 22:00:00 Krunal rial [place] Diastolic (mm Hg) 2013-07-03 21:45:00 Mem orial [place] Systolic (mm Hg) 2013-07-03 21:45:00 Krunal rial [place] Respitory Rate 2013-07-03 21:45:00 Memori al [place] Diastolic (mm Hg) 2013-07-03 21:30:00 Mem orial [place] Systolic (mm Hg) 2013-07-03 21:30:00 Krunal rial [place] Respitory Rate 2013-07-03 21:30:00 Memori al Gil Height 2013-07-03 17:13:00 180.34 cm [facility] Weight 2013-07-03 17:13:00 [facility] BMI Calculated 2013-07-03 17:13:00 Nik Desaiann Heart Rate 2013-07-03 11:17:00 [facility] Procedures Procedure Date / Time Performing Clinician Source Performed BASIC METABOLIC PANEL 2022-07-08 04:30:00 Dez Cramer [facility] CBC (HEMOGRAM ONLY) 2022-07-08 04:30:00 Dez Cramer [facility] MAGNESIUM 2022-07-08 04:30:00 [facility] 2022-07-08 04:30:00 [facility] CHEST 2 VIEWS 2022-07-07 09:08:00 [facility]er [facility] BASIC METABOLIC PANEL 2022-07-07 04:55:00 Dez Cramer [facility] CBC (HEMOGRAM ONLY) 2022-07-07 04:55:00 Dez Cramer [facility] IRON, TIBC, % SAT. 2022-07-07 04:55[facility] Thor FERRITIN 2022-07-07 04:55:00 Gladys [facility] HEPATIC FUNCTION PANEL 2022-07-07 04:55:00 Helen Graham I [facility] MAGNESIUM 2022-07-07 04:55:00 [facility] 2022-07-07 04:55:00 [facility] CHEST 1 VIEW 2022-07-06 14:41:00 [facility] PORTABLE / BEDSIDE Thor XR ABDOMEN/KUB 1 VIEW 2022-07-06 14:41:00 [facility] XR CHEST 1 VIEW 2022-07-06 07:35:00 [facility] PORTABLE / BEDSIDE Thor POCT-GLUCOSE METER 2022-07-06 07:22:00 Rekha Davis [facility] BASIC METABOLIC PANEL 2022-07-06 04:30:00 Dez Cramer [facility] CBC (HEMOGRAM ONLY) 2022-07-06 04:30:00 Dez Cramer [facility] CREATINE KINASE (CK) 2022-07-06 04:30:00 Lowell Mercedes [facility] HIGH SENSITIVITY 2022-07-06 00:24:00 Ciro Corey [facility] TROPONIN I Center ECG 12-LEAD 2022-07-06 00:15:07 Ciro Corey [facility] ECG 12-LEAD 2022-07-06 00:13:40 Ciro Corey [facility] BASIC METABOLIC PANEL 2022-07-05 23:30:00 Ciro Coreyjules [facility] POCT-GLUCOSE METER 2022-07-05 21:57:00 [facility]OLIC PANEL 2022-07-05 20:13:00 Ciro Coreyjules [facility] CBC W/PLT COUNT & AUTO 2022-07-05 20:13:00 Ciro [facility] DIFFERENTIAL Center CBC W/PLT COUNT & AUTO 2022-07-05 20:13:00 Ciro Corey [facility] DIFFERENTIAL Center ROBOTIC 2022-07-05 10:58:00 [facility]NEPHROURETE Thor RECTOMY PROCEDURE W/ DAVINCI XI 2022-07-05 10:58:00 Ryan [facility] PREPARE LEUKO-REDUCED 2022-07-05 10:26:00 Mariaa Bella [facility] RBC [facility] BASIC METABOLIC PANEL 2022-07-05 09:36:00 Char Finn [facility] ABORH, MANUAL 2022-07-05 09:36:00 Hina Zapata [facility] POCT-GLUCOSE METER 2022-07-05 09:31:00 [facility] TYPE AND SCREEN, 2022-07-05 09:20:[address] [facility] [address] [facility] AUTOMATED [facility] MR LUMBAR SPINE W WO 2018-12-26 15:00:00 [facility] ASSIGNMENT OF BENEFITS 2018-12-26 13:43:45 Doctor Unassigned, No [facility] Name Medical Branch Cataract [facility] surgery<sup>1</sup> Colonoscopy<sup>2</sup> [facility] [place] Hernia [facility] repair<sup>3</sup> Plan of Care Planned Activity Planned Date Details Comments Source Future Scheduled Test 2023-07-[address] [facility]00 Counseling and Medical Cente r Screening (12+) [code = Tobacco Cessation Counseling and Screening (12+)] Future Scheduled Test 2022-05-[address] [facility] 00:00:00 (12+) [code = Medical Center DEPRESSION SCREENING (12+)] Future Scheduled Test 2022-05-16 FALLS RISK SCREENING [facility] 00:00:00 [code = FALLS RISK Medical C enter SCREENING] Future Scheduled Test 2022-01-14 INFLUENZA VACCINE (#1) [facility] 00:00:00 [code = INFLUENZA Medical Ce nter VACCINE (#1)] Future Scheduled Test 2015-04-[address] [facility] 00:00:00 WELLNESS (YEAR 2 or Medical Center FIRST YEAR if no IPPE) [code = MEDICARE ANNUAL WELLNESS (YEAR 2 or FIRST YEAR if no IPPE)] Future Scheduled Test 2014 Ab[address] [facility]00 aneurysm screening Medical C enter (procedure) [code = 007991235] Future Scheduled Test 1999 SHINGLES VACCINES ([address] [facility] 00:00:00 of 2) [code = SHINGLES Medic al Center VACCINES (1 of 2)] Future Scheduled Test 1968 DTAP/TDAP/TD VACCINES [facility] 00:00:00 (1 - Tdap) [code = Medical C enter DTAP/TDAP/TD VACCINES (1 - Tdap)] Future Scheduled Test 1967 HEPATITIS C SCREENING [facility] 00:00:00 [code = HEPATITIS C Medical Center SCREENING] Future Scheduled Test 1955 PNEUMOCOCCAL 65+ YRS [facility] 00:00:00 (1 - PCV) [code = Medical Ce nter PNEUMOCOCCAL 65+ YRS (1 - PCV)] Future Scheduled Test 1949 COVID-19 VACCINE (#1) [facility] 00:00:00 [code = COVID-[address] VACCINE (#1)] Future Scheduled Test [address] [facility] 00:00:00 (combo) [code = CT Medical C enter Colonography (combo)] Future Scheduled Test 1950 [facility] malignant neoplasm of Medica l Center colon (procedure) [code = 886800794] Future Scheduled Test 1950 [facility] malignant neoplasm of Medica l Center colon (procedure) [code = 166111180] Future Scheduled Test 1950 [facility] malignant neoplasm of Medica l Center colon (procedure) [code = 870846221] Future Scheduled Test 1950 [facility] malignant neoplasm of Medica l Center colon (procedure) [code = 351494334] Future Scheduled Test 1950 Sigmoidoscopy [code = [facility] 00:00:00 Sigmoidoscopy] Medical Carmelo chavez Group Encounters Start End Encounter Admission Attending Care Care Encounter Source Date/Time Date/Time Type Type Clinicians Facility Department ID 2022-04-16 Outpatient Babs [facility] [id number] Common 10:29:02 Robin 04260 [facility] 2021-06-10 Outpatient [facility] [id number] Common 12:55:15 [id number] [facility] 2022-07-05 2022-07-08 Inpatient [facility] Surgery [id number] SLE 07:31:00 15:24:00 [place] 2022-07-05 2022-07-08 [facility] [id number] 07:31:00 15:24:00 Encounter [facility] 2022-07-05 2022-07-[address] [facility] [id number] 11:13:00 19:08:00 Event Mecca [facility] 2022-07-05 2022-07-[address] [facility] [id number] 10:00:00 17:30:00 [facility] 2022-07-05 2022-07-05 Travel [facility] [id number] [facility] 00:[facility]00 [facility] 2022-06-09 2022-06-09 Outpatient [facility] SLE [id number] SLE 00:00:00 00:00:00 [place] 2022-06-09 2022-06-09 Travel [facility] [id number] [facility] 00:[facility] 00:00:00 [facility] 2022-06-03 2022-06-03 OFFICE STLMLC STLMLC [id number] Co mmon 00:00:00 00:00:00 VISIT Spirit ESTAB PT - CHI LEVEL 2 [facility] 2022-05-29 2022-05-29 (TEL) STLMLC STLMLC [id number] Co mmon 00:00:00 00:00:00 Spirit - CHI [facility] 2022-05-20 2022-05-20 OFFICE STLMLC STLMLC [id number] Co mmon 00:00:00 00:00:00 VISIT Spirit ESTAB PT - CHI LEVEL 5 [facility] 2022-04-22 2022-04-22 OFFICE STLMLC STLMLC [id number] Co mmon 00:00:00 00:00:00 VISIT EST Spir it PT LEVEL 3 - CHI [facility] 2022-04-16 2022-04-16 OFFICE STLMLC STLMLC [id number] Co mmon 00:00:00 00:00:00 VISIT Spirit ESTAB PT - CHI LEVEL 5 [facility] 2020-05-08 2020-05-08 Letter SHY Duff [id number] Univers 00:00:00 00:00:00 (Out) Юлия VERA [id number] it [facility] [id number] Mc as [phone] [address] 2020-05-08 2020-05-08 Telephone SHY Yoon [id number] Univers 00:00:00 00:00:00 Joel VERA [id number] i ty of [facility] 4.2.7.2.686 Mc as [phone] [address] 2020-05-06 2020-05-06 Laboratory Lab, Adc Fam Pob I [facility] 1.2. 840.114 [id number] Univers 15:06:04 15:26:04 Only Alejandro [employer] 350.1.13.10 ity of [place] 4.2.7.2.686 Mc as Professio [phone] Pa dical [address] Office Building [address] 2020-05-06 2020-05-[address] [facility] [id number] Univers 15:00:00 15:00:00 ity of [facility] 2020-05-06 2020-05-06 Letter Doctor SHY 1.2.840.114 [id number] Univers 00:00:00 00:00:00 (Out) Unassigned, CHUY [id number] ity of [place] [facility] 4.2.7.2.686 Mc as [phone] [address] 2020-04-02 2020-04-02 [facility] [id number] [place] 02:32:00 02:32:00 118 [facility] 2020-01-24 2020-01-24 [facility] [id number] 200 [place] 03:44:00 03:44:00 910 [facility] 2020-01-24 2020-01-24 Outpatient Young_J MM MM [id number] 200 [place] 03:44:00 03:44:00 913 [facility] 2020-01-24 2020-01-24 Outpatient Young_J MM MM [id number] 200 [place] 03:44:00 03:44:00 914 [facility] 2020-01-24 2020-01-24 Nathen [facility] [place] - [id number] M atagor 00:00:00 00:00:00 DO Carlos A: Discovery ann luis [address] [place], [place] [address] - [address], [facility] [address] , Ph. [phone] 2020-01-23 2020-01-23 Outpatient Young_J MMG MMG [id number] 200 [place] 09:21:00 09:21:00 909 [facility] 2020-01-12 2020-01-12 Outpatient Young_J MMG MMG [id number] 200 [place] 03:03:00 03:03:00 829 [facility] 2020-01-10 2020-01-10 Outpatient Young_J MMG MMG [id number] 200 [place] 03:57:00 03:57:00 827 [facility] 2020-01-10 2020-01-10 Nathen [facility] [place] - [id number] M atagor 00:00:00 00:00:00 Carlos A, DO: Discovery juarez a [address] [place], [place] [address]a - [address], [facility] [address] , Ph. [phone] 2020-01-03 2020-01-03 Outpatient Young_J MMG MMG [id number] 200 [place] 10:23:00 10:23:00 820 [facility] 2020-01-03 2020-01-03 Outpatient Young_J MMG MMG [id number] 200 [place] 10:23:00 10:23:00 824 [facility] 2019-08-17 2019-08-17 [facility] 1.2.840.114 [id number] 00:00:00 00:00:00 Dmitriy Major [id number] [place] 4.2.7.2.686 Professio [phone] [address] 2019-08-17 2019-08-17 [facility] 1.2.840.114 [id number] Univers 00:00:00 00:00:00 Dmitriy Major [id number] ity of [place]2.7.2.[place] [phone] Pa dical [facility] 2019-02-26 2019-02-27 Outpt Diag nullFlavo [facility] [id number] Memoria 12:43:00 04:59:00 Services r Outpatient 00 l Imaging Gil Cordero 2019-02-26 2019-02-26 Outpatient Buys, MHOIH [facility] [id number] 07:43:00 23:59:00 [address] 00 2019-01-18 2019-01-18 [place] [facility] 1.2.840.114 [id number] Univers 00:00:00 00:00:00 Dmitriy Major 350.1.13.10 ity of [place]7.2.[place] Profess[place] [phone] [address] 2019-01-16 2019-01-16 [facility] 1.2.840.114 [id number] Univers 00:00:00 00:00:00 (Out) Dmitriy Major [id number] ity of [place]2.7.2.[place] Profess[place] [phone] [address] 2019-01-10 2019-01-10 [facility] 1.2.840.114 [id number] Univers 00:00:00 00:00:00 Dmitriy Major [id number] ity of [place]2.7.2.[place] [phone] [address] 2019-01-01 2019-01-01 [facility] 1.2.840.114 [id number] Univers 10:36:22 12:03:53 Visit Dmitriy Major [id number] ity of [place]2.7.2.[place] [phone] [address] 2018-12-26 2018-12-26 [facility] [id number] Univers 08:47:22 23:59:00 Encounter Dmitriy Major [id number] ity of [place]2.7.2.686 [place] [phone] [facility] 804 [place] 2018-12-26 2018-12-26 Orders Doctor BEGUM 1.2.840.114 [id number] Univers 00:00:00 00:00:00 Only Unassigned, CHUY 350.1.13.10 ity of [place] [facility] 4.2.7.2.686 Mc as [phone] [place] [address] Branch 2013-07-03 2013-07-03 OBS Day nullFlavo [facility] [id number] Memoria 16:31:00 22:00:00 Surgery r [place] [id number] l [facility] 3 [facility] 2013-07-03 2013-07-03 DS nullFlavo [id number] Memoria 10:31:00 16:00:00 r [facility] 01 l [place] 2013-07-03 2013-07-03 Outpatient [place], 2.16.840. 2.16.840.1. 3 [id number] 10:31:00 16:00:00 Clemente Gutierrez [id number] 3.615.0.1 5.0.101 01 Results Test Description Test Time Test Comments Results Result Comments Source BASIC METABOLIC PANEL 2022-07-08 06:07:15 Test Item Value Reference Range Interpretation Comme nts SODIUM (BEAKER) (test 137 meq/L 136-145 code = 381) POTASSIUM (BEAKER) 3.9 meq/L 3.5-5.1 (test code = 379) CHLORIDE (BEAKER) (test 107 meq/L 98-107 code = 382) CO2 (BEAKER) (test code 23 meq/L 22-29 = 355) BLOOD UREA NITROGEN 31 mg/dL 7-21 H (BEAKER) (test code = 354) CREATININE (BEAKER) 2.76 mg/dL 0.57-1.25 H (test code = 358) GLUCOSE RANDOM (BEAKER) 103 mg/dL 70-105 (test code = 652) CALCIUM (BEAKER) (test 8.3 mg/dL 8.4-10.2 L code = 697) EGFR (BEAKER) (test 24 mL/min/1.73 sq I nterpretation of eGFR values code = 1092) m Stage Descripti on Result G1 Normal or high >=90 G2 Mildly decreased 60-89 G3a Mildly to moderately 45-5 9 G3b Moderately to severely 30- 44 G4 Severly decreased 15-29 G5 Kidney failure <15Repo rted eGFR is based on the CK D-EPI 2020 equation that d oes not use a race coefficien tEstimated GFR is not as accurate as Creatinine Clearance in pr edicting glomerular filt ration rate. Estimated GFR i s not applicable for dialysis bibiana fontana Gatekeeper ID - [id number] 05:58:24 Test Item Value Reference Range Interpretation Comments MAGNESIUM (BEAKER) (test code = 2.0 mg/dL 1.6-2.6 627) Gatekeeper ID - [id number] 05:58:24 Test Item Value Reference Range Interpretation Comments PHOSPHORUS (BEAKER) (test code = 2.4 mg/dL 2.3-4.7 604) Gatekeeper ID - ADMINCBC (HEMOGRAM ONLY)2022-07-08 05:17:39 Test Item Value Reference Range Interpretation Comments WHITE BLOOD CELL COUNT (BEAKER) 5.6 K/ L 3.5-10.5 (test code = 775) RED BLOOD CELL COUNT (BEAKER) 2.62 M/ L 4.63-6.08 L (test code = 761) HEMOGLOBIN (BEAKER) (test code = 7.6 GM/DL 13.7-17.5 L 410) HEMATOCRIT (BEAKER) (test code = 23.2 % 40.1-51.0 L 411) MEAN CORPUSCULAR VOLUME (BEAKER) 89 fL 79-92 (test code = 753) MEAN CORPUSCULAR HEMOGLOBIN 29.0 pg 25.7-32.2 (BEAKER) (test code = 751) MEAN CORPUSCULAR HEMOGLOBIN CONC 32.8 GM/DL 32.3-36.5 (BEAKER) (test code = 752) RED CELL DISTRIBUTION WIDTH 12.9 % 11.6-14.4 (BEAKER) (test code = 412) PLATELET COUNT (BEAKER) (test 121 K/CU MM 150-450 L code = 756) MEAN PLATELET VOLUME (BEAKER) 8.9 fL 9.4-12.4 L (test code = 754) NUCLEATED RED BLOOD CELLS 0 /100 WBC 0-0 (BEAKER) (test code = 413) RAD, CHEST, 2 [id number] 09:18:00Reason for exam:->ongonig hypoxia requiring oxygenCHRIS [facility] : 1950 Sex: MFINAL REPORT CLINICAL HISTORY: ongoing hypoxia requiring oxygen TECHNIQUE: 2 views of the chest COMPARISON: 07/06/2022 IMPRESSION: The previous trace left apical pneumothorax is no longer definitively seen. Left basilar atelectasis is again seen. Trace bilateral pleural effusions areagain noted. Cardiomediastinal silhouette unchanged. Signed: Kaiden Bardales [facility] Verified Date/Time: 07/07/2022 09:18:51 Reading Location: [address] Reading Room IRON, TIBC, % SAT. (WITHOUT FERRITIN)2022-07-07 06:10:33 Test Item Value Reference Range Interpretation Comments IRON (BEAKER) (test code = 547) 96.0 ug/dL 40.0-160.0 TOTAL IRON BINDING CAPACITY 179 ug/dL 250-450 L (BEAKER) (test code = 769) IRON % SATURATION (2) (BEAKER) 54 % 20-55 (test code = 2590) Gatekeeper ID - SAM [id number] 06:03:07 Test Item Value Reference Range Interpretation Comments FERRITIN (BEAKER) (test code = 257.39 ng/mL 5.00-275.00 361) Gatekeeper ID - SAM GBASIC METABOLIC [id number] 05:45:25 Test Item Value Reference Range Interpretation Comments SODIUM (BEAKER) 138 meq/L 136-145 (test code = 381) POTASSIUM 4.6 meq/L 3.5-5.1 (BEAKER) (test code = 379) CHLORIDE (BEAKER) 108 meq/L 98-107 H (test code = 382) CO2 (BEAKER) 22 meq/L 22-29 (test code = 355) BLOOD UREA 33 mg/dL 7-21 H NITROGEN (BEAKER) (test code = 354) CREATININE 2.94 mg/dL 0.57-1.25 H (BEAKER) (test code = 358) GLUCOSE RANDOM 101 mg/dL 70-105 (BEAKER) (test code = 652) CALCIUM (BEAKER) 8.2 mg/dL 8.4-10.2 L (test code = 697) EGFR (BEAKER) 22 Interpretatio n of eGFR (test code = mL/min/1.73 values Stage De scription 1092) sq m Result G1 Rachelle l or high >=90 G2 Mildly decreased 60-89 G3a Mildl y to moderately 45-5 9 G3b Moderately to s everely 30-44 G4 Severl y decreased 15-29 G5 Kidney failure <15Reported eGF R is based on the CKD-EPI 2020 equation that d oes not use a race coefficientEsti mated GFR is not as accur ate as Creatinine Natty marivel in predicting glom erular filtration rate . Estimated GFR is not appl icable for dialysis patien ts Gatekeeper ID - SAM [id number] 05:44:19 Test Item Value Reference Range Interpretation Comments PHOSPHORUS (BEAKER) (test code = 3.3 mg/dL 2.3-4.7 604) Gatekeeper ID - SAM GHEPATIC FUNCTION [id number] 05:44:19 Test Item Value Reference Range Interpretation Comments TOTAL PROTEIN (BEAKER) (test code = 6.2 gm/dL 6.0-8.3 770) ALBUMIN (BEAKER) (test code = 1145) 3.4 g/dL 3.5-5.0 L BILIRUBIN TOTAL (BEAKER) (test code 0.4 mg/dL 0.2-1.2 = 377) BILIRUBIN DIRECT (BEAKER) (test 0.2 mg/dL 0.1-0.5 code = 706) ALKALINE PHOSPHATASE (BEAKER) (test 66 U/L 40-150 code = 346) AST (SGOT) (BEAKER) (test code = 20 U/L 5-34 353) ALT (SGPT) (BEAKER) (test code = 6 U/L 6-55 347) Gatekeeper ID - SAM [id number] 05:44:18 Test Item Value Reference Range Interpretation Comments MAGNESIUM (BEAKER) (test code = 2.2 mg/dL 1.6-2.6 627) Gatekeeper ID - SAM GCBC (HEMOGRAM ONLY)2022-07-07 05:22:32 Test Item Value Reference Range Interpretation Comments WHITE BLOOD CELL COUNT (BEAKER) 6.7 K/ L 3.5-10.5 (test code = 775) RED BLOOD CELL COUNT (BEAKER) 2.84 M/ L 4.63-6.08 L (test code = 761) HEMOGLOBIN (BEAKER) (test code = 8.2 GM/DL 13.7-17.5 L 410) HEMATOCRIT (BEAKER) (test code = 25.1 % 40.1-51.0 L 411) MEAN CORPUSCULAR VOLUME (BEAKER) 88 fL 79-92 (test code = 753) MEAN CORPUSCULAR HEMOGLOBIN 28.9 pg 25.7-32.2 (BEAKER) (test code = 751) MEAN CORPUSCULAR HEMOGLOBIN CONC 32.7 GM/DL 32.3-36.5 (BEAKER) (test code = 752) RED CELL DISTRIBUTION WIDTH 13.1 % 11.6-14.4 (BEAKER) (test code = 412) PLATELET COUNT (BEAKER) (test 133 K/CU MM 150-450 L code = 756) MEAN PLATELET VOLUME (BEAKER) 9.0 fL 9.4-12.4 L (test code = 754) NUCLEATED RED BLOOD CELLS 0 /100 WBC 0-0 (BEAKER) (test code = 413) RAD, ABDOMEN/KUB, 1 VIEW [id number] 15:33:00Reason for exam:->abdominal distentionShould this be performed at the bedside?->Yes [facility] 1950 Sex: MFINAL REPORT Exam: RAD, ABDOMEN/KUB, 1 VIEW APDate: 07/06/2022 3:32 PM Indication:abdominal distention COMPARISON: None DISCUSSION/IMPRESSION: Left base pleural parenchymal opacity again noted. Nonspecific nonobstructive bowel gas pattern. Rectal temperature probe in place. Gas is seen throughout the colon. Gas seen within the rectum. No evidence of free air within the limitations of this study. Signed: Yobany Carrizales MDReport Verified Date/Time: 07/06/2022 15:33:53 RAD, CHEST, 1 VIEW, NON [id number] 15:28:00Reason for exam:- >hypoxia, dyspnea with speechShould this be performed at the bedside?->Yes [facility] 1950 Sex: MFINAL REPORT EXAMINATION: RAD, CHEST, 1 VIEW, NON DEPT INDICATION: Hypoxia, shortness of breath COMPARISON: CXR of earlier the same day FINDINGS: LINES/TUBES:None LUNGS:The lungs arewell-inflated. There is perihilar fullness and indistinctness of the pulmonary vasculature. There isleft basilar opacity silhouetting the left marisol diaphragm. PLEURA:Likely trace bilateral pleural effu sions. No pneumothorax. MEDIASTINUM:The cardiomediastinal silhouette is magnified by portable technique. BONES/SOFT TISSUES:No acute osseous injury. ABDOMEN:No free air under the diaphragm. IMPRESSION:Left basilar airspace opacities, more likely atelectasis than superimposed aspiration or pneumonia. No definite pneumothorax. Central pulmonary vascular congestion. Signed: Blaise Mcdowell Verified Date/Time: 07/06/2022 15:28:23 CREATINE KINASE (CK)2022-07-06 08:41:19 Test Item Value Reference Range Interpretation Comments CREATINE KINASE TOTAL (BEAKER) (test 317 U/L 29-200 H code = 380) Gatekeeper ID - BRIONNA, CHEST, 1 VIEW, NON [id number] 08:23:00Reason for exam:->chest painShould this be performed at the bedside?->Yes [facility] 1950 Sex: MFINAL REPORT CLINICAL HISTORY: chest pain TECHNIQUE: 1 view of the chest. COMPARISON: None IMPRESSION: There is a small left apical pneumothorax. There is bibasilar atelectasis. There is no lobar consolidation or significant pleural fluid. There is no cardiomegaly. The findings werediscussed with nurse Tavarez on 16T at the time of dictation who will relay them to the physician. Sign ed: Kaiden Bardales Verified Date/Time: 07/06/2022 08:23:20 Reading Location: [address] Reading Room POC-Glucose [id number] 07:36:21 Test Item Value Reference Range Interpretation Comments POC-Glucose Meter (test 133 mg/dL 70-110 H : TE STED AT [facility] code = 1538) [address] [facility]: Gatekeeper/Techni elvira ID = [id number] for GERMAN SHAH Lab Interpretation (test Abnormal code = 49689-1) [facility] [id number] 07:36:21 Test Item Value Reference Range Interpretation Comments POC-GLUCOSE METER 133 mg/dL 70-110 H : TESTED A T [facility] 6720 (BEAKER) (test code = [facility], 1538) [id number]: Gatekeeper/Techni elvira ID = [id number] for GERMAN CONTE BASIC METABOLIC [id number] 06:29:07 Test Item Value Reference Range Interpretation Comments SODIUM (BEAKER) 135 meq/L 136-145 L (test code = 381) POTASSIUM 5.5 meq/L 3.5-5.1 H (BEAKER) (test code = 379) CHLORIDE (BEAKER) 109 meq/L 98-107 H (test code = 382) CO2 (BEAKER) 17 meq/L 22-29 L (test code = 355) BLOOD UREA 37 mg/dL 7-21 H NITROGEN (BEAKER) (test code = 354) CREATININE 3.35 mg/dL 0.57-1.25 H (BEAKER) (test code = 358) GLUCOSE RANDOM 141 mg/dL 70-105 H (BEAKER) (test code = 652) CALCIUM (BEAKER) 8.2 mg/dL 8.4-10.2 L (test code = 697) EGFR (BEAKER) 19 Interpretatio n of eGFR (test code = mL/min/1.73 values Stage De scription 1092) sq m Result G1 Rachelle l or high >=90 G2 Mildly decreased 60-89 G3a Mildl y to moderately 45-5 9 G3b Moderately to s everely 30-44 G4 Severl y decreased 15-29 G5 Kidney failure <15Reported eGF R is based on the CKD-EPI 2021 equation that d oes not use a race coefficientEsti mated GFR is not as accur ate as Creatinine Natty marivel in predicting glom erular filtration rate . Estimated GFR is not appl icable for dialysis patien ts Gatekeeper ID - [id number] (HEMOGRAM ONLY)2022-07-06 05:40:54 Test Item Value Reference Range Interpretation Comments WHITE BLOOD CELL COUNT (BEAKER) 9.4 K/ L 3.5-10.5 (test code = 775) RED BLOOD CELL COUNT (BEAKER) 3.22 M/ L 4.63-6.08 L (test code = 761) HEMOGLOBIN (BEAKER) (test code = 9.3 GM/DL 13.7-17.5 L 410) HEMATOCRIT (BEAKER) (test code = 28.5 % 40.1-51.0 L 411) MEAN CORPUSCULAR VOLUME (BEAKER) 89 fL 79-92 (test code = 753) MEAN CORPUSCULAR HEMOGLOBIN 28.9 pg 25.7-32.2 (BEAKER) (test code = 751) MEAN CORPUSCULAR HEMOGLOBIN CONC 32.6 GM/DL 32.3-36.5 (BEAKER) (test code = 752) RED CELL DISTRIBUTION WIDTH 13.1 % 11.6-14.4 (BEAKER) (test code = 412) PLATELET COUNT (BEAKER) (test 180 K/CU MM 150-450 code = 756) MEAN PLATELET VOLUME (BEAKER) 9.2 fL 9.4-12.4 L (test code = 754) NUCLEATED RED BLOOD CELLS 0 /100 WBC 0-0 (BEAKER) (test code = 413) HIGH SENSITIVITY TROPONIN [id number] 01:00:14 Test Item Value Reference Range Interpretation Comments HIGH SENSITIVITY TROPONIN I (test < pg/ml <=35 code = 4481313) Gatekeeper ID - BSThe RET[employer] DEPARTMENT MANAGER STAT High Sensitivity Troponin-I results should be used in conjunctionwith other diagnostic information such as ECG, clinical observations and information, and patient symptoms to aid in the diagnosis of [place].BASIC METABOLIC [id number] 00:09:21 Test Item Value Reference Range Interpretation Comments SODIUM (BEAKER) 135 meq/L 136-145 L (test code = 381) POTASSIUM 5.1 meq/L 3.5-5.1 (BEAKER) (test code = 379) CHLORIDE (BEAKER) 108 meq/L 98-107 H (test code = 382) CO2 (BEAKER) 16 meq/L 22-29 L (test code = 355) BLOOD UREA 36 mg/dL 7-21 H NITROGEN (BEAKER) (test code = 354) CREATININE 3.47 mg/dL 0.57-1.25 H (BEAKER) (test code = 358) GLUCOSE RANDOM 210 mg/dL 70-105 H (BEAKER) (test code = 652) CALCIUM (BEAKER) 8.5 mg/dL 8.4-10.2 (test code = 697) EGFR (BEAKER) 18 Interpretatio n of eGFR (test code = mL/min/1.73 values Stage De scription 1092) sq m Result G1 Norm al or high >=90 G2 Mildly decreased 60-89 G3a Mildl y to moderately 45-5 9 G3b Moderately to s everely 30-44 G4 Severl y decreased 15-29 G5 Kidney failure <15Reported eGF R is based on the CKD-EPI 2020 equation that d oes not use a race coefficientEsti mated GFR is not as accur ate as Creatinine Natty marivel in predicting glom erular filtration rate . Estimated GFR is not appl icable for dialysis patien ts Gatekeeper ID - BSPOCT-GLUCOSE [id number] 22:09:27 Test Item Value Reference Range Interpretation Comments POC-GLUCOSE METER 140 mg/dL 70-110 H : TESTED A T [facility] 6720 (BEAKER) (test code = [place], 1538) [address]: Gatekeeper/Techni elvira ID = [id number] for GR AHAGERMAN Lopez BASIC METABOLIC [id number] 21:06:29 Test Item Value Reference Range Interpretation Comments SODIUM (BEAKER) 137 meq/L 136-145 (test code = 381) POTASSIUM 5.9 meq/L 3.5-5.1 H (BEAKER) (test code = 379) CHLORIDE (BEAKER) 111 meq/L 98-107 H (test code = 382) CO2 (BEAKER) 16 meq/L 22-29 L (test code = 355) BLOOD UREA 35 mg/dL 7-21 H NITROGEN (BEAKER) (test code = 354) CREATININE 3.33 mg/dL 0.57-1.25 H (BEAKER) (test code = 358) GLUCOSE RANDOM 154 mg/dL 70-105 H (BEAKER) (test code = 652) CALCIUM (BEAKER) 8.4 mg/dL 8.4-10.2 (test code = 697) EGFR (BEAKER) 19 Interpretatio n of eGFR (test code = mL/min/1.73 values Stage De scription 1092) sq m Result G1 Rachelle l or high >=90 G2 Mildly decreased 60-89 G3a Mildl y to moderately 45-5 9 G3b Moderately to s everely 30-44 G4 Severl y decreased 15-29 G5 Kidney failure <15Reported eGF R is based on the CKD-EPI 2020 equation that d oes not use a race coefficientEsti mated GFR is not as accur ate as Creatinine Natty marivel in predicting glom erular filtration rate . Estimated GFR is not appl icable for dialysis patien ts Gatekeeper ID - BSCBC W/PLT COUNT & AUTO [id number] 20:30:53 Test Item Value Reference Range Interpretation Comments WHITE BLOOD CELL COUNT (BEAKER) 10.5 K/ L 3.5-10.5 (test code = 775) RED BLOOD CELL COUNT (BEAKER) 3.37 M/ L 4.63-6.08 L (test code = 761) HEMOGLOBIN (BEAKER) (test code = 9.7 GM/DL 13.7-17.5 L 410) HEMATOCRIT (BEAKER) (test code = 29.7 % 40.1-51.0 L 411) MEAN CORPUSCULAR VOLUME (BEAKER) 88 fL 79-92 (test code = 753) MEAN CORPUSCULAR HEMOGLOBIN 28.8 pg 25.7-32.2 (BEAKER) (test code = 751) MEAN CORPUSCULAR HEMOGLOBIN CONC 32.7 GM/DL 32.3-36.5 (BEAKER) (test code = 752) RED CELL DISTRIBUTION WIDTH 13.0 % 11.6-14.4 (BEAKER) (test code = 412) PLATELET COUNT (BEAKER) (test 187 K/CU MM 150-450 code = 756) MEAN PLATELET VOLUME (BEAKER) 8.9 fL 9.4-12.4 L (test code = 754) NUCLEATED RED BLOOD CELLS 0 /100 WBC 0-0 (BEAKER) (test code = 413) NEUTROPHILS RELATIVE PERCENT 88 % (BEAKER) (test code = 429) LYMPHOCYTES RELATIVE PERCENT 6 % (BEAKER) (test code = 430) MONOCYTES RELATIVE PERCENT 5 % (BEAKER) (test code = 431) EOSINOPHILS RELATIVE PERCENT 0 % (BEAKER) (test code = 432) BASOPHILS RELATIVE PERCENT 0 % (BEAKER) (test code = 437) NEUTROPHILS ABSOLUTE COUNT 9.26 K/ L 1.78-5.38 H (BEAKER) (test code = 670) LYMPHOCYTES ABSOLUTE COUNT 0.65 K/ L 1.32-3.57 L (BEAKER) (test code = 414) MONOCYTES ABSOLUTE COUNT (BEAKER) 0.51 K/ L 0.30-0.82 (test code = 415) EOSINOPHILS ABSOLUTE COUNT 0.00 K/ L 0.04-0.54 L (BEAKER) (test code = 416) BASOPHILS ABSOLUTE COUNT (BEAKER) 0.03 K/ L 0.01-0.08 (test code = 417) IMMATURE GRANULOCYTES-RELATIVE 0.20 % 0.00-1.00 PERCENT (BEAKER) (test code = 2801) Prepare Leuko-Red [id number] 10:26:00 Test Item Value Reference Range Interpretation Comments CROSSMATCH (test code = 2264) COMPATIBLE Unit ABO (test code = O Pos 6143777) UNIT NUMBER (test code = J997902590272 934-0) Status (test code = 8752759) READY Blood Bank Product (test code RED BLOOD CELLS = 2263) PRODUCT CODE (test code = P0742M06 933-2) [facility] METABOLIC [id number] 10:19:21 Test Item Value Reference Range Interpretation Comments SODIUM (BEAKER) 139 meq/L 136-145 (test code = 381) POTASSIUM 4.5 meq/L 3.5-5.1 (BEAKER) (test code = 379) CHLORIDE (BEAKER) 109 meq/L 98-107 H (test code = 382) CO2 (BEAKER) 21 meq/L 22-29 L (test code = 355) BLOOD UREA 31 mg/dL 7-21 H NITROGEN (BEAKER) (test code = 354) CREATININE 3.14 mg/dL 0.57-1.25 H (BEAKER) (test code = 358) GLUCOSE RANDOM 94 mg/dL 70-105 (JOSE R) (test code = 652) CALCIUM (JOSE R) 9.4 mg/dL 8.4-10.2 (test code = 697) EGFR (JOSE R) 20 Interpretatio n of eGFR (test code = mL/min/1.73 values Stage De scription 1092) sq m Result G1 Rachelle l or high >=90 G2 Mildly decreased 60-89 G3a Mildl y to moderately 45-5 9 G3b Moderately to s everely 30-44 G4 Severl y decreased 15-29 G5 Kidney failure <15Reported eGF R is based on the CKD-EPI 2020 equation that d oes not use a race coefficientEsti mated GFR is not as accur ate as Creatinine Natty marivel in predicting glom erular filtration rate . Estimated GFR is not appl icable for dialysis patien ts Gatekeeper ID - AAHAMIDPOCT-GLUCOSE [id number] 09:43:16 Test Item Value Reference Range Interpretation Comments POC-GLUCOSE METER 106 mg/dL 70-110 : TESTED A T [facility] 6720 (JOSE R) (test code = STAN Yates [facility], 1538) [address]: Gatekeeper/Techni elvira ID = [id number] for ROHAN JEFFRY COLUNGA MR LUMBAR SPINE W WO [id number] 16:27:00HISTORY: History of prior lumbar surgery and now having right legradiculopathy. TECHNIQUE: Sagittal T2 FRFSE, T1, STIR and axial T2 FRFSE T1 studies oflumbar spines are obtained. Additional coronal T2 FRFSE study is alsoobtained. Contrast enhanced fat sat sagittal and axial studies wereobtained after intravenous injection of 19 mL of DOTAREM. FINDINGS: No prior study available for comparison. Exaggerated lumbosacrallordosis is noted. No acute compression fracture or aggressive lesions of the bones detected.Spinal canal appears to be of adequate size and normal conus/cauda equinaare found at the level of T12. Visualized retroperitoneum is unremarkablefor aortic aneurysm or enlarged lymph nodes or hy dronephrosis. T12-L1, L1-L2: Minimal disc desiccation and minimal degenerative changes inthe ventralvertebral margins. Mild bilateral facet arthritis at bothlevels. No bulging of the disc into the spinal canal. L2-L3: Mild disc degeneration, bilateral facet arthritis with minimal fluidin both facet joints. No significant thecal sac compression or foraminalencroachment. L3-L4: Mild disc degeneration with slightly narrowed disc space, shallowSchmorl's node in the upper plate of L4, minimal diffuse bulging of thedisc, bilateral facet arthritis with slightly thickened ligaments causingminimal circumferential thecal sac no significant foraminal encroachment. L4-L5: Disc degeneration with narrowing of t he disc space by [id number]%, minimal anterior listhesis of L4 over L5, bulging of the disc andthickened ligaments from hypertrophic facet arthritis causing spinalstenosis with moderate circumferential thecal sac compression. Foraminalencroachment noted on both sides without significant nerve root compression. L5-S1: Shallow Schmorl's node in the lower plate of L5. Minimal disc bulgein the midline. Bilateral facet arthritis. No significant thecal saccompression or foraminal narrowing. CONCLUSIONS:1. Exaggerated lumbosacral lordosis, minimal spondylolisthesis at L4-L5with bulging disc and hypertrophic facet arthritis with thickened ligamentscausing spinal stenosis with moderate discomfort and show thecal saccompression. Foraminal encroachment noted on both sides without significantnerve root compression.2. Enhancement of the disc material at L3-L4 and Schmorl's node in theupper plate of L4 noted, which could be secondary to recent trauma andinflamed disc. No discitis suspected. [facility], [employer] User - 12/26/2018 11:29 AM CDTHISTORY: History of prior lumbar surgery and now having right legradiculopathy.TECHNIQUE: Sagittal T2 FRFSE, T1, STIR and axial T2 FRFSE T1 studies oflumbar spines are obtained. Additional coronal T2 FRFSE study is alsoobtained. Contrast enhanced fat sat sagittal and axial studies wereobtained after intravenous injection of 19 mL of DOTAREM.FINDINGS: No prior study available for comparison. Exaggerated lumbosacrallordosis is noted.No acute compression fracture or aggressive lesions of the bones detected.Spinal canal appears to be of adequate size and normal conus/cauda equinaare found at the level of T12. Visualized retroperitoneum is unremarkablefor aortic aneurysm or enlarged lymph nodes or hydronephrosis. T12- L1, L1-L2: Minimal disc desiccation and minimal degenerative changes inthe ventral vertebral margins. Mild bilateral facet arthritis at bothlevels. No bulging of the disc into the spinal canal.L2-L3: Mild disc degeneration, bilateral facet arthritis with minimal fluidin both facet joints. No significant thecal sac compression or foraminalencroachment.L3-L4: Mild disc degeneration with slightly narrowed disc space, shallowSchmorl's node in theupper plate of L4, minimal diffuse bulging of thedisc, bilateral facet arthritis with slightly thickened ligaments causingminimal circumferential thecal sac no significant foraminal encroachment.L4-L5:Disc degeneration with narrowing of the disc space by acnacfdonszah54%, minimal anterior listhesis of L4 over L5, bulging of the disc andthickened ligaments from hypertrophic facet arthritis causing spi nalstenosis with moderate circumferential thecal sac compression. Foraminalencroachment noted on both sides without significant nerve rootcompression.L5-S1: Shallow Schmorl's node in the lower plate ofL5. Minimal disc bulgein the midline. Bilateral facet arthritis. No significant thecal saccompression or foraminal narrowing.CONCLUSIONS:1. Exaggerated lumbosacral lordosis, minimal spondylolisthesis at L4-L5with bulging disc and hypertrophic facet arthritis with thickened ligamentscausing spinal stenosis with moderate discomfort and show thecal saccompression. Foraminal encroachment noted on both sides without significantnerve root compression.2. Enhancement of the disc material at L3-L4 and Schmorl's node in theupper plate of L4 noted, which could be secondary to recent trauma andinflamed disc. No discitis suspected.[facility] Hospital[facility]LECTROLYTES2014-02-18 17:15:00 Test Item Value Reference Range Interpretation Comments AGAP (test code = AGAP) 10.9 10.0-20.0 [facility] HospitalSdszfhzHWHBMLVTJTKF0315-46-96 17:15:00 Test Item Value Reference Range Interpretation Comments eGFR (test code = eGFR) 58 [facility] HospitalGxjllmcYOHHJRSKNDBX3727-47-19 17:15:00 Test Item Value Reference Range Interpretation Comments CO2 (test code = CO2) 26 24-32 [facility] HospitalJesksapKKVJLQGIJVJV4054-83-18 17:15:00 Test Item Value Reference Range Interpretation Comments Calcium Lvl (test code = Calcium Lvl) 8.6 8.5-10.5 [facility] HospitalJxqodjmRHZLWZSQGWPK5203-70-06 17:15:00 Test Item Value Reference Range Interpretation Comments Sodium Lvl (test code = Sodium Lvl) 141 135-145 [facility] HospitalMkclcnyZGDULBWVVUNZ6563-16-78 17:15:00 Test Item Value Reference Range Interpretation Comments Potassium Lvl (test code = Potassium 3.9 3.5-5.1 Lvl) [facility] HospitalBrgiafuLZBBGRTHOUSO7063-63-11 17:15:00 Test Item Value Reference Range Interpretation Comments Chloride Lvl (test code = Chloride Lvl) 108 95-109 [facility] HospitalDqizokiPHKNMDOQREHO2999-56-61 17:15:00 Test Item Value Reference Range Interpretation Comments Glucose Lvl (test code = Glucose Lvl) 89 70-99 [facility] HospitalNdgxqaeGZJRGZPMMYWO1223-02-54 17:15:00 Test Item Value Reference Range Interpretation Comments Creatinine Lvl (test code = Creatinine 1.3 0.5-1.4 Lvl) [facility] HospitalSyzsnqmRZESMYYWLZKN3142-22-45 17:15:00 Test Item Value Reference Range Interpretation Comments BUN (test code = BUN) 16 7-22 [facility]landsXznuplfIRMSNBAMKY9518-12-54 17:15:00 Test Item Value Reference Range Interpretation Comments Lymphocytes (test code = Lymphocytes) 23.5 20.0-40.0 [facility]landsGwdpbxtCMDSCMENKU1544-76-19 17:15:00 Test Item Value Reference Range Interpretation Comments Segs (test code = Segs) 68.6 45.0-75.0 [facility]landsUncnesuMFBQYLJQMQ8069-47-84 17:15:00 Test Item Value Reference Range Interpretation Comments Lymphocytes # (test code = Lymphocytes 2.2 1.0-5.5 #) [facility]landsIcqpdxqPRKXHOQOLG7736-74-71 17:15:00 Test Item Value Reference Range Interpretation Comments Segs-Bands # (test code = Segs-Bands #) 6.4 1.5-8.1 [facility]landsEpmhkipBLGUAARINE4474-76-53 17:15:00 Test Item Value Reference Range Interpretation Comments Eosinophils (test code = 1.9 See_Comment [A utomated message] The Eosinophils) system which ge nerated this result tra nsmitted reference range : <=4.0. The reference r ernst was not used to int erpret this result as normal/abnormal . [facility]landsYfvfapnBAYRLHSHRR1987-81-72 17:15:00 Test Item Value Reference Range Interpretation Comments Monocytes (test code = Monocytes) 5.4 2.0-12.0 [facility]landsYmdfbctHYAAMKBRST3623-61-52 17:15:00 Test Item Value Reference Range Interpretation Comments Basophils (test code = 0.6 See_Comment [Aut omated message] The Basophils) system which ge nerated this result tra nsmitted reference range : <=1.0. The reference r ernst was not used to int erpret this result as normal/abnormal . [facility]landsDcokxmwKDXWLOTUIK4464-02-10 17:15:00 Test Item Value Reference Range Interpretation Comments Monocytes # (test code 0.5 See_Comment [Aut omated message] The = Monocytes #) system which generated this result tra nsmitted reference range : <=0.8. The reference r ernst was not used to int erpret this result as normal/abnormal . [facility]landsKpmwsopUBVOGCHZZS8019-25-74 17:15:00 Test Item Value Reference Range Interpretation Comments Eosinophils # (test code 0.2 See_Comment [A utomated message] The = Eosinophils #) system whic h generated this result tra nsmitted reference range : <=0.5. The reference r ernst was not used to int erpret this result as normal/abnormal . [facility]landsOlaeixqDEXODQLYIR5240-10-23 17:15:00 Test Item Value Reference Range Interpretation Comments Basophils # (test code 0.1 See_Comment [Aut omated message] The = Basophils #) system which generated this result tra nsmitted reference range : <=0.2. The reference r ernst was not used to int erpret this result as normal/abnormal . [facility]landsAoifttxKNBWBHQSPY6128-24-65 17:15:00 Test Item Value Reference Range Interpretation Comments RDW (test code = RDW) 13.5 11.5-14.5 [facility]landsXrmfxanXRTRVKUROC9265-44-86 17:15:00 Test Item Value Reference Range Interpretation Comments MCHC (test code = MCHC) 34.7 32.0-36.0 [facility]landsWwzivggRTGJCSFDAZ1809-72-73 17:15:00 Test Item Value Reference Range Interpretation Comments MPV (test code = MPV) 7.6 7.4-10.4 [facility]landsNfjfxyxMFJJYQUKRR4321-91-57 17:15:00 Test Item Value Reference Range Interpretation Comments Platelet (test code = Platelet) 189 133-450 [facility]landsFurkfffFIEZMLTFGF8028-64-50 17:15:00 Test Item Value Reference Range Interpretation Comments MCV (test code = MCV) 86.1 80.0-94.0 [facility]landsUibtslvBKMJFOCDTC7245-86-78 17:15:00 Test Item Value Reference Range Interpretation Comments MCH (test code = MCH) 29.8 pg 27.0-31.0 [facility]landsWufhaqrZDVXCALSQM6440-60-22 17:15:00 Test Item Value Reference Range Interpretation Comments WBC X 10x3 (test code = WBC X 10x3) 9.3 3.7-10.4 [facility]landsMdhtismEZVTIZFWLX9314-22-72 17:15:00 Test Item Value Reference Range Interpretation Comments RBC X 10x6 (test code = RBC X 10x6) 4.49 4.70-6.10 [facility]landsTbcaaizGDAFEIWGRV4025-30-79 17:15:00 Test Item Value Reference Range Interpretation Comments Hgb (test code = Hgb) 13.4 14.0-18.0 [facility]landsMrsevlgPFUWANPPHB6976-25-23 17:15:00 Test Item Value Reference Range Interpretation Comments Hct (test code = Hct) 38.7 42.0-54.0 [facility]
[2022-07-09 17:49] LABS: Absolute Lymphocytes (CBC) 1.5 K/uL (0.7-4.9); Hematocrit 24.9 % (39.6-49.0); Lymphocytes % 25.2 % (15.3-44.8); MCV 84.3 fL (80-100); MPV 6.5 fL (7.6-11.3); RBC Red Blood Cell Count 2.96 M/uL (4.33-5.43)
[2022-07-09 17:51] LABS: Protime INR 0.87
[2022-07-09 18:05] LABS: Potassium 3.8 mmol/L (3.5-5.1)
--- NOTE | 2022-07-09 18:17 | RAD REPORT ---
EXAM DESCRIPTION: USExtrem Venous W Compress Bil07/09/2022 5:35 pm CLINICAL HISTORY: Leg pain COMPARISON: none FINDINGS: The common femoral, superficial femoral, greater saphenous, popliteal and posterior tibial veins bilaterally are compressible and demonstrate augmentation. Doppler demonstrates good flow. Grayscale, color and spectral analysis performed on all vessels IMPRESSION: No evidence of deep venous thrombosis involving either lower extremity.
--- NOTE | 2022-07-09 18:21 | RAD REPORT ---
EXAM DESCRIPTION: US - Lower Extremity Arterial Bilat - 07/09/2022 5:35 pm CLINICAL HISTORY: Leg pain and swelling COMPARISON: None FINDINGS: Right common femoral, superficial femoral, popliteal arteries, posterior tibial and dorsalis pedis ar terial waveforms triphasic The right popliteal arterial waveform biphasic The left common femoral, superficial femoral, posterior tibial and dorsalis pedis arterial waveforms triphasic The left popliteal arterial waveform biphasic Grayscale, color and spectral analysis performed on all vessels IMPRESSION: Mild bilateral arterial disease
--- NOTE | 2022-07-09 18:37 | EDPHYS ---
Physician Documentation [facility] Name: Esdras Grace Age: 72 yrs Sex: Male : 1950 Arrival Date: 07/09/2022 Time: 15:57 Bed 19 Private MD: ED Physician Dorian Murrell HPI: 07/09 16:25 This 72 yrs old Male presents to ER via Wheelchair with complaints of Leg Swelling. cp 16:25 The patient presents with pain, that is acute. The complaints affect the left foot. cp Onset: The symptoms/episode began/occurred this morning. Associated signs and symptoms: Pertinent negatives fever, warmth, chest pain, shortness of breath. 16:25 Severity of symptoms: in the emergency department the symptoms are unchanged, despite cp home interventions. Patient reports history of left nephrectomy 4 days ago at [facility] with discharge from hospital yesterday. Denies fever, denies shortness of breath, denies cough. Historical: - Allergies: 16:03 lactose; hb ROS: 16:30 Constitutional: Negative for body aches, chills, fever, poor PO intake. cp 16:30 Cardiovascular: Positive for edema, Negative for chest pain, palpitations. cp 16:30 Eyes: Negative for injury, pain, redness, and discharge. cp 16:30 ENT: Negative for drainage from ear(s), ear pain, sore throat, difficulty swallowing, cp difficulty handling secretions. 16:30 Respiratory: Negative for cough, shortness of breath, wheezing. 16:30 Abdomen/GI: Negative for abdominal pain, nausea, vomiting, and diarrhea. 16:30 : Negative for urinary symptoms. 16:30 MS/extremity: Positive for swelling, tenderness, of the left foot. 16:30 Neuro: Negative for altered mental status, dizziness, headache, syncope, weakness. 16:30 All other systems are negative. Exam: 16:35 Constitutional: The patient appears in no acute distress, alert, awake, cp non-diaphoretic, non-toxic, well developed, well nourished. 16:35 Head/Face: Normocephalic, atraumatic. cp 16:35 Eyes: Periorbital structures: appear normal, Conjunctiva: normal, no exudate, no injection, Sclera: no appreciated abnormality, Lids and lashes: appear normal, bilaterally. 16:35 ENT: External ear(s): are unremarkable, Nose: is normal, Mouth: Lips: moist, Oral mucosa: pink and intact, moist, Posterior pharynx: is normal, airway is patent, no erythema, no exudate. 16:35 Chest/axilla: Inspection: normal. 16:35 Cardiovascular: Rate: normal, Rhythm: regular, Edema: pedal edema, that is mild, ankle edema, that is mild, JVD: is not appreciated. 16:35 Respiratory: the patient does not display signs of respiratory distress, Respirations: normal, no use of accessory muscles, no retractions, labored breathing, is not present, Breath sounds: are clear throughout, no decreased breath sounds, no stridor, no wheezing. 16:35 Abdomen/GI: Inspection: distension, is not seen, Bowel sounds: active, all quadrants, Palpation: soft, in all quadrants, nontender, in all quadrants. 16:35 Skin: cellulitis, is not appreciated, no rash present. cp 16:35 Neuro: Orientation: to person, place \T\ time. Mentation: is normal, Motor: moves all fours, strength is normal. 17:47 ECG was reviewed by the Attending Physician. cp Vital Signs: 16:01 BP 131 / 71; Pulse 96; Resp 16; Temp 98.3; Pulse Ox 97% on R/A; Weight 99.79 kg; Height hb 6 ft. (182.88 cm); Pain 2/10; 17:48 BP 126 / 78; Pulse 88; Resp 16; Pulse Ox 100% on R/A; mb9 18:46 BP 140 / 69; Pulse 80; Resp 16; Pulse Ox 100% ; mb9 16:01 Body Mass Index 29.84 (99.79 kg, 182.88 cm) hb MDM: 16:05 Patient medically screened. torri 18:35 Data reviewed: vital signs, nurses notes, lab test result(s), EKG, radiologic studies, cp plain films, ultrasound. 18:35 Consideration of Admission/Observation Escalation of care including cp admission/observation considered. Care significantly affected by the following chronic conditions: Chronic Kidney Disease. Counseling: I had a detailed discussion with the patient and/or guardian regarding: the historical points, exam findings, and any diagnostic results supporting the discharge/admit diagnosis, lab results, radiology results, to return to the emergency department if symptoms worsen or persist or if there are any questions or concerns that arise at home. 07/09 16:21 Order name: Basic Metabolic Panel; Complete Time: 18:11 cp 07/09 18:11 Interpretation: Normal except: GLUC 116; BUN 34; CRE 2.92; GFR 22. cp 07/09 16:21 Order name: CBC with Diff; Complete Time: 18:11 cp 07/09 18:11 Interpretation: Normal except: RBC 2.96; HGB 8.8; HCT 24.9; MPV 6.5; MN% 1.6; cp EOSINOPHIL % 5.8. 07/09 16:21 Order name: NT PRO-BNP; Complete Time: 18:11 cp 07/09 18:24 Interpretation: NT PRO-BNP 291; Reviewed. cp 07/09 16:21 Order name: PT-INR; Complete Time: 18:11 cp 07/09 16:21 Order name: US Extremity Venous W Compression Santiago; Complete Time: 18:24 cp 07/09 18:24 Interpretation: Report reviewed. cp 07/09 16:21 Order name: Lower Extremity Arterial Bilat US; Complete Time: 18:24 cp 07/09 18:24 Interpretation: Report reviewed. cp 07/09 16:21 Order name: EKG; Complete Time: 16:25 cp 07/09 16:21 Order name: Cardiac monitoring; Complete Time: 17:15 cp 07/09 16:21 Order name: EKG - Nurse/Tech; Complete Time: 17:42 cp 07/09 16:21 Order name: IV Saline Lock; Complete Time: 17:42 cp 07/09 16:21 Order name: Labs collected and sent; Complete Time: 17:42 cp 07/09 16:21 Order name: O2 Per Protocol; Complete Time: 17:15 cp 07/09 16:21 Order name: O2 Sat Monitoring; Complete Time: 17:15 cp EC:47 Rate is 88 beats/min. Rhythm is regular. NM interval is normal. QRS interval is normal. cp QT interval is normal. T waves are Inverted in lead aVR. Interpreted by me. Reviewed by me. Administered Medications: No medications were administered Disposition Summary: 07/09/22 18:36 Discharge Ordered Location: Home cp Problem: new cp Symptoms: have improved cp Condition: Stable cp Diagnosis - Edema, unspecified cp - Anemia, unspecified cp - Chronic kidney disease, unspecified cp Followup: cp - With: Private Physician - When: 2 - 3 days - Reason: Recheck today's complaints Discharge Instructions: - Discharge Summary Sheet cp - Anemia cp - Edema cp - How to Use Compression Stockings cp - Chronic Kidney Disease, Adult cp Forms: - Medication Reconciliation Form cp - Thank You Letter cp - Antibiotic Education cp - Prescription Opioid Use cp Signatures: Dispatcher [employer] EDMS Dorian Murrell MD MD cha Page, Corey, PA PA cp Gabrielle Ruth RN RN Corrections: (The following items were deleted from the chart) 07/10 18:10 07/09 16:25 Patient reports history of nephrectomy 4 days ago. Denies fever, denies cp shortness of breath, denies cough. cp
--- NOTE | 2022-07-09 18:37 | ER ---
Nurse's Notes [facility] Name: Esdras Grace Age: 72 yrs Sex: Male : 1950 Arrival Date: 07/09/2022 Time: 15:57 Bed 19 Private MD: Diagnosis: Edema, unspecified;Anemia, unspecified;Chronic kidney disease, unspecified Presentation: 07/09 16:01 Chief complaint: Left leg and foot swelling upon waking today. Pt is 4 days s/p left hb nephrectomy, discharged from [facility] yesterday. Coronavirus screen: At this time, the client does not indicate any symptoms associated with coronavirus-19. Ebola Screen: No symptoms or risks identified at this time. Initial Sepsis Screen: Does the patient meet any 2 criteria? No. Patient's initial sepsis screen is negative. Does the patient have a suspected source of infection? No. Patient's initial sepsis screen is negative. Risk Assessment: Do you want to hurt yourself or someone else? Patient reports no desire to harm self or others. Onset of symptoms was July 09, 2022. 16:01 Method Of Arrival: Wheelchair hb 16:01 Acuity: ANGELICA 3 hb Historical: - Allergies: 16:03 lactose; hb Assessment: 17:01 Reassessment: pt brought back to ER room. mb9 17:46 General: Appears in no apparent distress. General: Appears Behavior is anxious. Pain: mb9 Complains of pain in left lower foot Pain does not radiate. Pain currently is 3 out of 10 on a pain scale. Quality of pain is described as dull, throbbing, Pain began 1 day ago. Is continuous, Aggravated by increased activity, repositioning, weight bearing. Neuro: Morrissey Agitation-Sedation Scale (RASS): 0 - Alert and Calm Level of Consciousness is awake, alert, obeys commands, Oriented to person, place, time, situation, Appropriate for age. Cardiovascular: Rhythm is regular. Cardiovascular: Pulses are 1+ in left posterior tibial artery and left dorsalis pedis artery. Respiratory: Airway is patent Respiratory effort is even, unlabored, Respiratory pattern is regular, symmetrical, Breath sounds are clear bilaterally. GI: Abdomen is round non-distended, Bowel sounds present X 4 quads. Abd is soft and non tender X 4 quads. : Hurt in place to gravity drainage. EENT: No signs and/or symptoms were reported regarding the EENT system. Derm: Skin is pink, warm \T\ dry. Musculoskeletal: Swelling present in left foot. 18:44 Reassessment: No changes from previously documented assessment. Patient and/or family shari updated on plan of care and expected duration. Pain level reassessed. Patient is alert, oriented x 3, equal unlabored respirations, skin warm/dry/pink. Vital Signs: 16:01 BP 131 / 71; Pulse 96; Resp 16; Temp 98.3; Pulse Ox 97% on R/A; Weight 99.79 kg; Height hb 6 ft. (182.88 cm); Pain 2/10; 17:48 BP 126 / 78; Pulse 88; Resp 16; Pulse Ox 100% on R/A; mb9 18:46 BP 140 / 69; Pulse 80; Resp 16; Pulse Ox 100% ; mb9 16:01 Body Mass Index 29.84 (99.79 kg, 182.88 cm) hb ED Course: 15:57 Patient arrived in ED. rg4 16:01 Dorian Stephens PA is PHCP. cp 16:01 Dorian Murrell MD is Attending Physician. cp 16:03 Triage completed. hb 16:04 Arm band placed on. hb 17:01 Sherrie Williamson, RN is Primary Nurse. mb9 17:36 US Extremity Venous W Compression Santiago In Process Unspecified. EDMS 17:37 Lower Extremity Arterial Bilat US In Process Unspecified. EDMS 17:42 Basic Metabolic Panel Sent. mm9 17:42 CBC with Diff Sent. mm9 17:42 NT PRO-BNP Sent. mm9 17:42 PT-INR Sent. mm9 17:42 Initial lab(s) drawn, by ED staff, sent to lab. EKG done, by ED staff, reviewed by tiffanie MORRIS. 17:43 Patient has correct armband on for positive identification. Placed in gown. Bed in low mm9 position. Call light in reach. Side rails up X2. Adult w/ patient. Warm blanket given. Client placed on continuous cardiac and pulse oximetry monitoring. NIBP monitoring applied. traffic monitor specialist on. Pulse ox on. NIBP on. 17:46 No provider procedures requiring assistance completed. mb9 18:46 IV discontinued, intact, bleeding controlled, No redness/swelling at site. Pressure mb9 dressing applied. Administered Medications: No medications were administered Medication: 17:48 VIS not applicable for this client. mb9 Outcome: 18:36 Discharge ordered by . cp 18:46 Discharged to home via wheelchair. mb9 18:46 Condition: stable 18:46 Discharge instructions given to patient, Instructed on discharge instructions, follow up and referral plans. Demonstrated understanding of instructions, follow-up care. 18:46 Patient left the ED. mb9 Signatures: Dispatcher [employer] EDMS Dorian Stephens PA PA cp Baxter, Heather, RN RN Vijaya Ponce4 Melissa Vidal mm9 Clay, Sherrie Maddox RN RN mb9
[2022-07-09 20:11] VITALS: TEMP 98.3
[2022-07-09 20:12] VITALS: O2SAT 100
[2022-07-09 20:14] VITALS: BP 140/69
--- NOTE | 2022-07-12 18:47 | EKG ---
Test Date: 2022-07-09 Test Time: 17:40:42 Software Validation Engineer: MB MEASUREMENT RESULTS: Intervals: Rate: 88 NV: 148 QRSD: 98 QT: 392 QTc: 474 [place]: P: 49 NV: 148 QRS: 10 T: 61 INTERPRETIVE STATEMENTS: Normal sinus rhythm Normal ECG Compared to ECG 06/28/2022 12:20:32 No significant changes Electronically Signed On 07-12-22 18:42:44 CRANE FOLLOWER by Damian Jeong
== END 2022-07-09 18:46 | disposition home or self-care (01) ==
LOC: ER 15:53
DX: R60.9 Edema, unspecified (principal); D64.9 Anemia, unspecified; N18.9 Chronic kidney disease, unspecified; Z90.5 Acquired absence of kidney; Z91.011 Allergy to milk products
CPT/HCPCS: 36415; 80048; 83880; 85025; 85610; 93005; 93925; 93970; 99284

== ENCOUNTER 2023-03-01 11:21 | Day surgery (SDC) | payer OTHER, MEDICARE ==
--- NOTE | 2023-02-21 11:26 | RAD REPORT ---
EXAM DESCRIPTION: RAD - Chest Pa And Lat (2 Views) - 02/21/2023 11:15 am CLINICAL HISTORY: pre op pending cystoscopy bladder biopsies Chest pain. COMPARISON: Chest Pa And Lat (2 Views) dated 06/28/2022; Chest Pa And Lat (2 Views) dated 04/29/2022; Chest Pa And Lat (2 Views) dated 07/23/2020 TECHNIQUE: PA and lateral views of the chest were obtained. FINDINGS: The lungs are hyperexpanded compatible with COPD. The heart is upper limit of normal in si ze. No fracture or aggressive bony process. IMPRESSION: COPD without acute process identified. The USPSTF recommends annual screening for lung cancer with low-dose CT (LDCT) in adults aged 50 to 8 0 years who have a 20 pack-year smoking history and currently smoke or have quit within the past 15 y ears.
[2023-02-21 11:50] LABS: Absolute Lymphocytes (CBC) 1.6 K/uL (0.7-4.9); Hematocrit 32.7 % (39.6-49.0); Lymphocytes % 27.2 % (15.3-44.8); MCV 86.6 fL (80-100); Platelets 143 thou/uL (152-406); RBC Red Blood Cell Count 3.78 M/uL (4.33-5.43)
[2023-02-21 11:53] LABS: Protime INR 1.02
--- NOTE | 2023-02-22 11:43 | EKG ---
Test Date: 2023-02-21 Test Time: 10:47:13 Package Sealer: GEORGI MEASUREMENT RESULTS: Intervals: Rate: 67 VT: 160 QRSD: 96 QT: 402 QTc: 424 [place]: P: 73 VT: 160 QRS: -4 T: 73 INTERPRETIVE STATEMENTS: Sinus rhythm with fusion complexes Otherwise normal ECG Compared to ECG 07/09/2022 17:40:42 Fusion complex(es) now present Electronically Signed On 02-22-23 11:40:53 CDT by Damian Jeong
[2023-03-01] MEDS ORDERED: Ringers Lactate 1,000 ML IV ONE (11:43)
[2023-03-01] MEDS ORDERED: LIDOCAINE 1% MPF 5 ML VIAL ONE (11:56)
[2023-03-01] MEDS ORDERED: FENTANYL CITR 100 MCG/2 ML ONE (11:56)
[2023-03-01] MEDS ORDERED: propofoL 200 MG/20 ML VIAL IV ONE (11:56)
[2023-03-01] MEDS ORDERED: CEFAZOLIN SODIUM 2 GM/VIAL ONE (13:09)
[2023-03-01] MEDS ORDERED: EPHEDRINE SULF 50 MG/ML VIAL ONE (13:52)
[2023-03-01] MEDS ORDERED: dexAMETHasone 10 MG/ML VIAL ONE (13:57)
[2023-03-01] MEDS ORDERED: ONDANSETRON 4 MG/2 ML VIAL ONE ×2 (13:58→14:56)
[2023-03-01] MEDS ORDERED: GEMCITABINE HCL 23.6 ML IS ONE (14:15)
[2023-03-01] MEDS ORDERED: HYDROMORPHONE HCL 1 MG/ML INJ ONE (14:56)
[2023-03-01] MEDS ORDERED: CODEINE 30MG/APAP 300MG TAB PO PRN (15:12)
[2023-03-01] MEDS ORDERED: DIAZEPAM 5 MG TABLET PO ONE (15:12)
[2023-03-01] MEDS ORDERED: PHENAZOPYRIDINE 100MG TAB PO ONE (15:12)
[2023-03-01 15:16] VITALS: O2SAT 100
[2023-03-01 16:24] VITALS: TEMP 97.8
[2023-03-01 16:48] VITALS: BP 128/51
--- NOTE | 2023-03-01 17:23 | RAD REPORT ---
EXAM DESCRIPTION: RAD - Urethrocystogrphy Retrograde - 03/01/2023 2:46 pm CLINICAL HISTORY: RIGHT STENT PLACEMENT COMPARISON: None available. FINDINGS: Five Images were sent to PACS, documenting hardware positioning during right ureteroscopy. No radiologist was available for the procedure, nor will any image interpretation he provided. Bhavani yañez refer to the procedural report for additional details. Fluoroscopy time: 14 seconds. IMPRESSION: Documentation of fluoroscopy utilization as above.
--- NOTE | 2023-03-01 20:47 | OP ---
Surgeon: REKHA DAVIS Preoperative Diagnoses: 1.Positive voided urinary cytology. 2.History of left upper tract urothelial carcinoma. 3.Status post left robot-assisted laparoscopic nephroureterectomy. 4.Bladder lesion. Postoperative Diagnoses: 1.Positive voided urinary cytology. 2.History of left upper tract urothelial carcinoma. 3.Status post left robot-assisted laparoscopic nephroureterectomy. 4.Bladder lesion. Principal Procedures: 1.Cystoscopy. 2.Right retrograde pyelography. 3.Cold cup bladder biopsies, multiple, greater than 15. 4.Fulguration of bladder lesions/biopsy site. 5.Urethral Hurt catheter placement. 6.Instillation of gemcitabine 2 g in 50 cc normal saline intravesical chemotherapy. Findings: Sessile erythematous patches within the right posterior wall and lateral to the right uret eral orifice as well as the left posterior wall of the bladder. Sessile papillary approximately 0.3 cm patch of tissue in the left lateral wall near the bladder neck. Slightly irregular mucosal appear ance in the bladder neck posteriorly. Indication For Procedure: Mr. Grace is a 72-year-old gentleman with positive urinary cytology, who underwent upper tract evaluation on the right side initially before we finally discovered a signific ant urothelial carcinoma involving his left upper tract. He subsequently underwent laparoscopic neph roureterectomy using robotic assistance, and intravesical gemcitabine was given to him at the time of that procedure. He has since undergone followup surveillance with cystoscopy, which revealed a slig ht irregularity of the mucosa within the left lateral wall near the site of resected ureteral orifice . Voided urinary cytology was suspicious for high-grade urothelial carcinoma. As a result, he was r ecommended for definitive evaluation. Procedure In Detail: The patient was consented in the preoperative holding area before being transfe rred to the operative suite where general anesthesia was induced. He was given Ancef IV antimicrobia l prophylaxis, and pneumo boots were provided for DVT prophylaxis. He was placed in the lithotomy po sition, padded and secured to the table appropriately and his genitalia were prepped with Hibiclens b efore being draped in standard fashion. The case was begun using a 22-Angolan rigid cystoscope to tra verse the urethra and into the bladder with ease. The bladder was surveyed in its entirety after dec ompressing it of fluid and urine and refilling it with sterile saline. I then identified the presenc e of irregular erythematous mucosal patches within the right posterior wall, lateral to the right ure teral orifice, posteriorly near the bladder neck, within the left posterior wall, lateral to the rese cted ureteral orifice, and in the left lateral wall near the bladder neck. As a result, I utilized c old cup biopsy forceps to sample extensively from each of the sites mentioned above, and pathologic s amples were sent as follows: 1.Right posterior. 2.Left posterolateral. 3.Bladder neck. After sampling the areas extensively, I then fulgurated the base of the lesions to stop all bleeding and then again surveyed the entirety of the bladder. No additional concerning mucosal change was not ed throughout, so I switched to a 70-degree lens and surveyed the entirety of the bladder neck withou t any additional lesions noted. Prior to the biopsies being performed, I intubated the right ureteral orifice using a 5-Angolan ureter al access catheter. I then performed a retrograde pyelogram. Right retrograde pyelography: Using a 70:30 mixture of Omnipaque and saline, contrast was injected v ia the lumen of the 5-Angolan ureteral access catheter and did propagate up the distal into the mid an d proximal ureter without any sign of ureteronephrosis and without any ureteral filling defect noted. Contrast did enter the renal pelvis, which filled without evidence of filling defect, and each of t he calyces did delineate without any signs of pelvocaliectasis. No significant filling defects were identified throughout either of the calices, and upon removal of the 5-Angolan ureteral access cathete r, contrast did nicely efflux from the collecting system. As a result, once I finished the retrograd e study, I then proceeded with the bladder biopsies and fulguration as described above. Following bladder biopsies and fulguration, I then ensured the bladder was completely hemostatic befo re removing the cystoscope. I then placed an 18-Angolan catheter into his bladder with ease and place d 15 cc of sterile water in the balloon. I allowed his bladder to decompress of fluid and urine befo re retrograde instilling gemcitabine 2 g in 50 cc normal saline chemotherapy intravesically. He was taken out of the lithotomy position, his genitalia were padded with towels and draped accordingly to prevent any chemotherapeutic exposure to the skin. He was then awakened from general anesthesia befo [facility] He was then transferred to the recovery room in good condition. Complications: None. Discharge Disposition: He should follow up in the Urology Clinic in about 1 to 2 weeks' time to disc uss the results of the pathology and determine next steps, since this is likely bladder recurrence of his upper tract urothelial carcinoma despite adjuvant gemcitabine and carboplatin chemotherapy. He very likely would benefit from definitive induction course of intravesical therapy based on the patho logy, and once we were able to clear the bladder pathology, we will again survey to ensure the right upper tract is free of urothelial lesion. Definitive ureteroscopy may be required. GURPREET/VICTOR HUGO Voice ID: [id number] Report ID: [id number]
== END 2023-03-01 16:40 | disposition home or self-care (01) ==
LOC: PRE 11:21 → OR 16:40
PROVIDERS: ATTEND Urology
PROC: 0TBB8ZX Excision of Bladder, Via Natural or Artificial Opening Endoscopic, Diagnostic (ICD-10-PCS; 2023-03-01)
PROC: 0TBC8ZX Excision of Bladder Neck, Via Natural or Artificial Opening Endoscopic, Diagnostic (ICD-10-PCS; 2023-03-01)
PROC: 3E0K705 Introduction of Other Antineoplastic into Genitourinary Tract, Via Natural or Artificial Opening (ICD-10-PCS; principal; 2023-03-01 12:30)
DX: C67.4 Malignant neoplasm of posterior wall of bladder (principal); C67.2 Malignant neoplasm of lateral wall of bladder; D09.0 Carcinoma in situ of bladder; J44.9 Chronic obstructive pulmonary disease, unspecified; N18.32 Chronic kidney disease, stage 3b; E78.00 Pure hypercholesterolemia, unspecified; M54.16 Radiculopathy, lumbar region; Z87.891 Personal history of nicotine dependence; Z85.51 Personal history of malignant neoplasm of bladder; Z90.6 Acquired absence of other parts of urinary tract
CPT/HCPCS: 93005; 87088; 85025; 87086; 80048; 36415; 85610; 88305; 71046; 74450; 51610; 51720; 52204; J9201; J2704; J2001; J3010; J1100; J1170; J2405 ×2; J7120

== ENCOUNTER 2023-05-24 08:52 | Day surgery (SDC) | payer OTHER, MEDICARE ==
[2023-05-18 13:09] LABS: Absolute Lymphocytes (CBC) 1.4 K/uL (0.7-4.9); Hematocrit 31.2 % (39.6-49.0); Lymphocytes % 19.2 % (15.3-44.8); MPV 6.6 fL (7.6-11.3); Platelets 173 thou/uL (152-406); RBC Red Blood Cell Count 3.59 M/uL (4.33-5.43)
[2023-05-18 13:21] LABS: Protime INR 1.05
[2023-05-18 13:23] LABS: Potassium 4.4 mEq/L (3.5-5.1)
[~2023-05-24 08:52] MED LIST changes: -AMPICILLIN SODIUM 2 GM in NA CHLORIDE 0.9% 100 ML IVPB ONE; -Gentamicin Inj 200 MG in NA CHLORIDE 0.9% 100 ML IVPB ONE; +PIPER TAZO 2.25 GM in NA CHLORIDE 0.9% 50 ML IV ONE
[2023-05-24] MEDS ORDERED: NA CHLORIDE 0.9% 500 ML ONE (09:30)
[2023-05-24] MEDS ORDERED: propofoL 200 MG/20 ML VIAL IV ONE (13:15)
[2023-05-24] MEDS ORDERED: FENTANYL CITR 100 MCG/2 ML ONE (13:15)
[2023-05-24] MEDS ORDERED: ONDANSETRON 4 MG/2 ML VIAL ONE (13:15)
[2023-05-24] MEDS ORDERED: LIDOCAINE 1% MPF 5 ML VIAL ONE (13:15)
[2023-05-24] MEDS ORDERED: PIPER TAZO 2.25 GM in NA CHLORIDE 0.9% 100 ML IV ONE (14:00)
[2023-05-24] MEDS ORDERED: ESMOLOL HCL 10 ML IV ONE (14:07)
--- NOTE | 2023-05-24 14:51 | RAD REPORT ---
EXAM DESCRIPTION: RAD - Urethrocystogrphy Retrograde - 05/24/2023 2:38 pm CLINICAL HISTORY: PYLEOGRAM COMPARISON: Urethrocystogrphy Retrograde dated 03/01/2023 FINDINGS/IMPRESSION: Nine intraoperative fluoroscopic images were submitted showing cannulation of t he right ureter and injection of contrast. No radiologist was available for the procedure, nor will any image interpretation be provided. Please refer to the procedural report for additional details Fluoro time: 16 seconds
[2023-05-24] MEDS ORDERED: CODEINE 30MG/APAP 300MG TAB PO PRN (15:06)
[2023-05-24] MEDS ORDERED: PHENAZOPYRIDINE 100MG TAB PO ONE ×2 (15:06→15:29)
[2023-05-24] MEDS ORDERED: CODEINE 30MG/APAP 300MG TAB ONE (16:19)
[2023-05-24 16:29] VITALS: BP 141/77; TEMP 97; O2SAT 96
--- NOTE | 2023-05-24 17:07 | OP ---
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 2.History of left upper tract urothelial carcinoma. 3.Status post left robot assisted laparoscopic nephroureterectomy. 4.Status post induction course of intravesical BCG. 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 2.History of left upper tract urothelial carcinoma. 3.Status post left robot assisted laparoscopic nephroureterectomy. 4.Status post induction course of intravesical BCG. Principal Procedures: 1.Cystoscopy. 2.Restaging bladder biopsies with fulguration. 3.Right retrograde pyelography. Indication For Procedure: Mr. Grace is a 73-year-old gentleman who previously was diagnosed with l eft upper tract urothelial carcinoma and underwent robot assisted laparoscopic left nephroureterectom y. He received adjuvant chemotherapy with carboplatinum, given his reduced GFR, and while there has been no evidence of metastatic disease, there was evidence of local recurrence in the bladder. As a result, he underwent cystoscopy with bladder biopsies revealing multifocal bladder tumors consistent with Ta high-grade urothelial carcinoma, and there was also carcinoma in situ seen. As a result, he underwent an induction course of intravesical BCG, which he tolerated well, and he presents today for definitive restaging reevaluation. Procedure In Detail: The patient was consented in the preoperative holding area before being transfe rred to the operative suite where general anesthesia was induced. He was given Zosyn 2.25 g IV q.6 h ours starting about 5 hours prior to the procedure start time, given an atypical but highly resistant organism identified in his urine, likely the result of a prior BCG treatment. He was then placed in the lithotomy position, padded and secured to the table appropriately, and his genitalia were preppe d with Hibiclens before being draped in standard fashion. The case was begun using a 22-Tajik rigid cystoscope to traverse the urethra and into the bladder with ease. The bladder was then surveyed in its entirety with both the 30 degree lens as well as the 70 degree lens to survey the bladder neck. No papillary mucosal lesions, foreign bodies, or stones were noted throughout. In the posterior wal l of the bladder and trigone, there were some mild erythematous change and some pigmented change bila terally in the region of prior tumor identified on biopsy. As a result, I sampled each of those area s of slight mucosal suspicion involving the left lateral wall, the trigone, and the right lateral wal l. These were all sent for pathologic analysis. I then passed a 5-Tajik ureteral access catheter i nto the right ureteral orifice and performed a retrograde pyelogram. Right retrograde pyelography: Using a 70:30 mixture of Omnipaque and saline, contrast was injected v ia the lumen of the 5-Tajik ureteral access catheter and did propagate up the distal end to the mid and proximal ureter without evidence of ureteral filling defect, before entering the renal pelvis wit h no pelvicaliceal filling defects identified. There was no hydronephrosis and the calyces were vazquez p and again without filling defect. As a result, I removed the 5-Tajik ureteral access catheter, al lowing the upper tract to decompress, and ensured each of the sites that were biopsied were completel y hemostatic. Of note, fulguration was performed using a Bugbee electrode with a cautery setting of 30 for each of approximately 6 or 7 biopsy sites taken, 2 to 3 from each location indicated above. H is bladder was then decompressed of fluid and urine, and he was taken out of the lithotomy position. He was awakened from general anesthesia, transferred to a stretcher, and then transferred to the rec overy room in good condition. Complications: None. Discharge Disposition: He should follow up in the Urology Clinic to discuss the results of the patho logy, and if benign, as expected, he would benefit from continuation with maintenance BCG to begin 3 months following his last induction course treatment. Subsequent cystoscopic evaluation will then be performed in the office in approximately 3 months from today's operative excursion or August 22. Re cent imaging was performed, 04/27/2023, of the chest, abdomen and pelvis and that imaging revealed the absence of evidence of metastatic disease. WR/MODL Voice ID: [id number] Report ID: [id number]
== END 2023-05-24 16:30 | disposition home or self-care (01) ==
LOC: OR 08:52
PROVIDERS: ATTEND Urology
PROC: 0TBB8ZX Excision of Bladder, Via Natural or Artificial Opening Endoscopic, Diagnostic (ICD-10-PCS; principal; 2023-05-24 11:30)
DX: C67.9 Malignant neoplasm of bladder, unspecified (principal); C79.02 Secondary malignant neoplasm of left kidney and renal pelvis; D09.0 Carcinoma in situ of bladder
CPT/HCPCS: 87088; 85025; 87086; 80048; 36415; 85610; 87077; 87186; 74450; 51610; 52204; J2704; J2001; J2543 ×2; J3010; J2405; J7040

== ENCOUNTER 2023-08-25 18:04 | Emergency (ER) | payer OTHER, MEDICARE ==
[2023-08-25 19:32] LABS: Hematocrit 27.8 % (39.6-49.0); Hemoglobin 9.1 g/dL (13.6-17.9); MCV 82.5 fL (80-100); RBC Red Blood Cell Count 3.37 M/uL (4.33-5.43)
[2023-08-25 19:33] LABS: Absolute Basophils 0.1 K/uL (0-0.5); Absolute Eosinophils 0.1 K/uL (0-0.5); Absolute Lymphocytes (CBC) 1.1 K/uL (0.7-4.9); Absolute Monocytes 0.8 K/uL (0.1-1.3); Absolute Neutrophil 13.6 K/uL (1.8-8.0); Basophils % 0.4 % (0-1.3); Eosinophils % 0.8 % (0-4.4); Lymphocytes % 7.3 % (15.3-44.8); MCH 26.9 pg (27.0-35.0); MCHC 32.6 g/dL (32.0-36.0); MPV 7.3 fL (7.6-11.3); Monocytes % 5.4 % (3.3-12.3); Neutrophils % 86.1 % (41.7-73.7); Platelets 276 thou/uL (152-406); Red Cell Distribution Width 15.2 % (12.1-15.2)
[2023-08-25 19:40] LABS: PT Prothrombin Time 14.4 SECONDS (9.5-12.5); PTT, Activated Partial Thromb 31.5 SECONDS (24.3-36.9); Protime INR 1.32
[2023-08-25 19:49] LABS: Albumin 2.5 g/dL (3.4-5.0); Albumin/Globulin Ratio 0.5 (1.1-1.8); Anion Gap 11.3 mEq/L (5.0-15.0); Bilirubin Total 0.6 mg/dL (0.2-1.0); Globulin 5.2 g/dL (2.3-3.5); Potassium 4.3 mEq/L (3.5-5.1); Protein, Total 7.7 g/dL (6.4-8.2)
--- NOTE | 2023-08-25 19:50 | RAD REPORT ---
EXAM DESCRIPTION: RAD - Chest Pa And Lat (2 Views) - 08/25/2023 7:42 pm CLINICAL HISTORY: COUGH COMPARISON: Chest Pa And Lat (2 Views) dated 02/21/2023; Chest Pa And Lat (2 Views) dated 06/28/2022; Chest Pa And Lat (2 Views) dated 04/29/2022; Chest Pa And Lat (2 Views) dated 07/23/2020 FINDINGS: Lines: None. Lungs: No evidence of edema or pneumonia. Pleural: No significant pleural effusions or pneumothorax. Cardiac: The heart size is within normal limits. Mediastinum: Within normal limits. Bones: No acute fractures. Other: None IMPRESSION: No acute cardiopulmonary disease.
[2023-08-25] MEDS ORDERED: NA CHLORIDE 0.9% 500 ML ONE (20:01)
[2023-08-25 20:07] LABS: INFLUENZA A NAA NEGATIVE (NEGATIVE); RESPIRATORY SYNCYTIAL VIR NAA NEGATIVE (NEGATIVE); SARS-COV-2 RT PCR NEGATIVE (NEGATIVE)
[2023-08-25 20:54] LABS: Blood Morphology Comment NOT SEEN (NOT SEEN); Platelet Estimate ADEQ; White Blood Cell Scan OK (OK)
--- NOTE | 2023-08-25 21:26 | RAD REPORT ---
EXAM DESCRIPTION: CTChest Abd Pelvis Wo Con - 08/25/2023 8:46 pm CLINICAL HISTORY: Chest pain;Fever;Pain;SOB COMPARISON: Chest Abd Pelvis Wo Con dated 04/27/2023; Chest Abd Pelvis Wo Con dated 12/28/2022 TECHNIQUE: CT of the chest, abdomen, and pelvis was performed. All CT scans are performed using dose optimization technique as appropriate and may include automated exposure control or mA/KV adjustment according to patient size. FINDINGS: Thorax: Chest Wall: No abnormal mass Lungs: No acute abnormality. Pleura: No effusions or pneumothorax. Ana María/Mediastinum: No lymphadenopathy. Aorta/Pulmonary Arteries: Unremarkable Heart: Normal size. Small pericardial effusion. Coronary calcifications. Abdomen/Pelvis: Liver: Multiple liver lesions have developed in the interim. For example, there is a lesion in the ri ght hepatic lobe measuring approximately 6.2 cm. A lesion more inferiorly in the right hepatic lobe m easures roughly 7 cm. Biliary: No biliary ductal dilatation. Stomach: No significant focal abnormality. Duodenum: No significant focal abnormality. Pancreas: No significant abnormality. Spleen: No significant abnormality. Adrenal: No suspicious lesions. Kidney/ureter: No hydronephrosis. No renal calculi. Surgically absent left kidney. Retroperitoneum: No retroperitoneal adenopathy. Vascular: 3.1 cm infrarenal abdominal aortic aneurysm is unchanged. Bowel: No significant focal abnormality. Peritoneum: No ascites or free air. Bladder: Grossly unremarkable. Reproductive: No adnexal masses. Bones: No acute fracture. Other: n/a IMPRESSION: Interval development of multiple liver masses concerning for metastatic disease. Could c onfirm with a contrast-enhanced CT and/or ultrasound. The lesions should be amenable to ultrasound-gu ided biopsy for confirmation. Infrarenal abdominal aortic aneurysm measuring 3.1 cm. This is unchanged. Three year follow-up is rec ommended.
[2023-08-25 22:03] LABS: Sqamous Epithelial <5 /HPF (None Seen); Urine Bacteria <20 /HPF (<20); Urine Bilirubin NEGATIVE (Negative); Urine Blood Negative (Negative); Urine Clarity Turbid (Clear); Urine Color Yellow (Yellow); Urine Crystals Unidentified Few /HPF (None Seen); Urine Culture Reflex Order NOT NEEDED; Urine Glucose NEGATIVE (Negative); Urine Ketones NEGATIVE (Negative); Urine Micro Reflex YN NO BILL MICROSCOPIC; Urine Mucus Slight /HPF (None Seen); Urine Nitrite NEGATIVE (Negative); Urine Protein 1+ (Negative); Urine RBC <5 /HPF (None Seen); Urine Urobilinogen Normal (Normal); Urine pH 5.5 (5.0-7.0)
--- NOTE | 2023-08-25 22:04 | EDPHYS ---
Physician Documentation [facility] Name: Esdras Grace Age: 73 yrs Sex: Male : 1950 Arrival Date: 08/25/2023 Time: 18:04 Bed 16 Private MD: ED Physician Osito Nagy HPI: 08/24 19:21 This 73 yrs old Male presents to ER via Ambulatory with complaints of Nausea/Vomiting, sb4 CHIILS, Headache. 19:21 Patient states that he has been feeling poorly for 4 months now. States about a week sb4 ago, he started experiencing fever and chills, diarrhea, nausea, vomiting. States him and have had a dry cough since returning from [place] a few months ago. Patient saw Dr. Brice today who sent him to the ED for further workup. Historical: - Allergies: 18:22 lactose; ll1 - Home Meds: 18:23 rosuvastatin 20 mg oral tablet [Active]; losartan 25 mg oral tablet [Active]; ll1 pantoprazole 40 mg oral granules delayed release for susp packet [Active]; tamsulosin 0.4 mg oral capsule [Active]; bumetanide 0.5 mg Oral tablet [Active]; Ventolin HFA 90 mcg/actuation Nebulizer HFA Aerosol Inhaler [Active]; dorzolamide (PF) 2 % ophthalmic (eye) drops [Active]; latanoprost 0.005 % ophthalmic (eye) drops [Active]; - PMHx: 18:22 Hypertensive disorder; Hypercholesterolemia; ll1 18:23 chemo kidney CA; ll1 - PSHx: 18:22 L kidney removed kidney CA; ll1 18:23 hernia repair x 2; back sx; ll1 - Immunization history:: Adult Immunizations up to date. - Infectious Disease History:: Denies. - Social history:: Smoking status: Patient denies any tobacco usage or history of. ROS: 19:21 Cardiovascular: Negative for chest pain, palpitations, and edema, sb4 19:21 Constitutional: Positive for chills, fatigue, fever, poor PO intake, 19:21 Respiratory: Positive for cough, 19:21 Abdomen/GI: Positive for nausea, vomiting, and diarrhea, 19:21 Neuro: Positive for headache, 19:21 All other systems are negative, Exam: 19:21 Head/Face: Normocephalic, atraumatic. Eyes: Extra-ocular motions intact. Periorbital sb4 areas with no swelling, redness, or edema. 19:21 Cardiovascular: Regular rate and rhythm with a normal S1 and S2. Respiratory: Lungs have equal breath sounds bilaterally, clear to auscultation and percussion. No rales, rhonchi or wheezes noted. No increased work of breathing, no retractions or nasal flaring. Abdomen/GI: Soft, non-tender, no distension. Skin: Warm, dry with normal turgor. Normal color with no rashes, no lesions, and no evidence of cellulitis. MS/ Extremity: Pulses equal, no cyanosis. Neurovascular intact. Full, normal range of motion. 19:21 Constitutional: The patient appears alert, awake, obviously ill, 19:21 ENT: Mouth: Oral mucosa: dry, Vital Signs: 18:26 BP 122 / 67; Pulse 106; Resp 17; Temp 97; Pulse Ox 96% ; Weight 104.33 kg; Height 6 ft. ll1 0 in. ; Pain 8/10; 20:09 BP 130 / 70; Pulse 88; Resp 17; Pulse Ox 98% ; jj7 21:00 BP 122 / 74; Pulse 82; Resp 16; Pulse Ox 97% ; jj7 22:10 BP 142 / 74; Pulse 87; Resp 17; Pulse Ox 100% ; jj7 18:26 Body Mass Index 31.19 (104.33 kg, 182.88 cm) ll1 18:26 Pain Scale: Adult ll1 [place] Coma Score: 22:18 Eye Response: spontaneous(4). Motor Response: obeys commands(6). Verbal Response: rv oriented(5). Total: 15. MDM: 18:19 Patient medically screened. sb4 22:05 Data reviewed: vital signs, nurses notes, old medical records, prior labs lab test sb4 result(s), EKG, radiologic studies, I have discussed the patient's presentation/case with the attending Emergency Department Physician; and as a result, I will discharge patient. Consideration of Admission/Observation Escalation of care including admission/observation considered. Historians other than the Patient: Spouse/Significant Other: . Care significantly affected by the following chronic conditions: Hypertension, Cancer, Chronic Kidney Disease. Counseling: I had a detailed discussion with the patient and/or guardian regarding the historical points, exam findings, and any diagnostic results supporting the discharge/admit diagnosis, lab results, radiology results, the need for outpatient follow up, oncology, to return to the emergency department if symptoms worsen or persist or if there are any questions or concerns that arise at home. ED course: labs are unchanged from prior. CT showing liver metastases. patient feels better after IV fluids. discussed all results with patient and . no need for emergent/urgent admission/treatment. he understands to follow up with Dr. Nichol SHELTON, will call tomorrow morning. 08/24 18:35 Order name: Blood Culture Adult (2) [facility] 08/24 18:35 Order name: CBC with Diff; Complete Time: 20:56 [facility] 08/24 18:35 Order name: CMP; Complete Time: 19:49 [facility] 08/24 18:35 Order name: Lactate w/ 2H reflex if indic.; Complete Time: 19:49 [facility] 08/24 18:35 Order name: Protime (+inr); Complete Time: 19:41 [facility] 08/24 18:35 Order name: Ptt, Activated; Complete Time: 19:41 [facility] 08/24 18:35 Order name: COVID-19/FLU A+B/RSV; Complete Time: 20:11 [facility] 08/24 19:58 Order name: UAM; Complete Time: 22:04 [facility] 08/24 20:28 Order name: Glucose, Ancillary Testing; Complete Time: 20:29 EDOR 08/24 20:54 Order name: CBC Smear Scan; Complete Time: 20:56 EDOR 08/24 18:35 Order name: Chest Pa And Lat (2 Views) XRAY; Complete Time: 19:53 [facility] 08/24 19:53 Order name: CT Chest Abdomen Pelvis W/O Contrast; Complete Time: 21:29 [facility] 08/24 18:35 Order name: Accucheck; Complete Time: 20:16 [facility] 08/24 18:35 Order name: Cardiac monitoring; Complete Time: 20:09 [facility] 08/24 18:35 Order name: EKG - Nurse/Tech; Complete Time: 20:09 [facility] 08/24 18:35 Order name: IV Saline Lock - Large Bore; Complete Time: 19:26 [facility] 08/24 18:35 Order name: Labs collected and sent; Complete Time: 19:26 sb4 08/24 18:35 Order name: O2 Per Protocol; Complete Time: 20:09 sb4 08/24 18:35 Order name: O2 Sat Monitoring; Complete Time: 20:09 sb4 08/24 18:35 Order name: Vital Signs; Complete Time: 20:09 sb4 08/24 21:31 Order name: PO challenge; Complete Time: 21:55 sb4 EC: Rate is 88 beats/min. Rhythm is regular, Normal Sinus Rhythm. ME interval is normal at sb4 142 msec. QRS interval is normal at 98 msec. QT interval is normal at 354 msec. No Q waves. T waves are Normal. Clinical impression: Normal ECG and No evidence of ischemia. Interpreted by me. Reviewed by me. Administered Medications: 20:05 Drug: NS 0.9% IV 500 ml IV at bolus once Route: IV; Rate: bolus; Site: right forearm; rv 22:18 Follow up: IV Status: Completed infusion; IV Intake: 500ml rv Disposition: 08/25 05:28 Co-signature as Attending Physician, Osito Nagy MD I agree with the assessment sp4 and plan of care. I reviewed the patient's care provided by the Advanced Practice Provider and agree with the diagnosis and treatment plan. Disposition Summary: 08/25/23 22:04 Discharge Ordered Notes: Location: Home sb4 Problem: an ongoing problem sb4 Symptoms: have improved sb4 Condition: Stable sb4 Diagnosis - liver metastases sb4 - Dehydration sb4 Followup: sb4 - With: Vandana Moser MD - When: Tomorrow - Reason: Recheck today's complaints, Re-evaluation by your physician Discharge Instructions: - Discharge Summary Sheet sb4 - Dehydration, Adult sb4 Forms: - Thank You Letter sb4 - Patient Portal Instructions sb4 - Leadership Thank You Letter sb4 Signatures: Dispatcher [employer] Karl Perla RN RN rv Enoch Pat RN RN ll1 Jasmin Bagley PARadha PARadha sb4 Osito Nagy MD MD sp4 Corrections: (The following items were deleted from the chart) 08/24 18:35 18:35 Chest Pa And Lat (2 Views)+[email or web address] ordered. EDMS EDMS 19:58 19:21 Patient states that he has been feeling poorly for 4 months now. States about a sb4 week ago, he started experiencing fever and chills, diarrhea, nausea, vomiting. States him and have had a dry cough since returning from [place] a few weeks ago. Patient saw Dr. Brice today who sent him to the ED for further. sb4
--- NOTE | 2023-08-25 22:04 | ER ---
Nurse's Notes [facility] Name: Esdras Grace Age: 73 yrs Sex: Male : 1950 Arrival Date: 08/25/2023 Time: 18:04 Bed 16 Private MD: Diagnosis: liver metastases;Dehydration Presentation: 08/24 18:26 Chief complaint: Patient states: N/V, loose stools, chills, [place]Z, fatigue, not feeling ll1 well for 1 month. No appetite, cant sleep. Sent by Dr. Macias. Cough off/on since May. Coronavirus screen: Client denies travel out of the [place] in the last 14 days. At this time, the client does not indicate any symptoms associated with coronavirus-19. Ebola Screen: Patient denies travel to an Ebola-affected area in the 21 days before illness onset. Initial Sepsis Screen: Does the patient meet any 2 criteria? No. Patient's initial sepsis screen is negative. Does the patient have a suspected source of infection? No. Patient's initial sepsis screen is negative. Risk Assessment: Do you want to hurt yourself or someone else? Patient reports no desire to harm self or others. Onset of symptoms was July 25, 2023. 18:26 Method Of Arrival: Ambulatory 1 18:26 Acuity: ANGELICA 3 ll1 Triage Assessment: 18:27 General: Appears uncomfortable, Behavior is calm, cooperative, appropriate for age. ll1 General: Reports feeling ill for fatigue for. Pain: Complains of pain in abdomen. GI: Reports lower abdominal pain, upper abdominal pain, bloating, nausea, "loose stools". Historical: - Allergies: 18:22 lactose; ll1 - Home Meds: 18:23 rosuvastatin 20 mg oral tablet [Active]; losartan 25 mg oral tablet [Active]; ll1 pantoprazole 40 mg oral granules delayed release for susp packet [Active]; tamsulosin 0.4 mg oral capsule [Active]; bumetanide 0.5 mg Oral tablet [Active]; Ventolin HFA 90 mcg/actuation Nebulizer HFA Aerosol Inhaler [Active]; dorzolamide (PF) 2 % ophthalmic (eye) drops [Active]; latanoprost 0.005 % ophthalmic (eye) drops [Active]; - PMHx: 18:22 Hypertensive disorder; Hypercholesterolemia; ll1 18:23 chemo kidney CA; ll1 - PSHx: 18:22 L kidney removed kidney CA; ll1 18:23 hernia repair x 2; back sx; ll1 - Immunization history:: Adult Immunizations up to date. - Infectious Disease History:: Denies. - Social history:: Smoking status: Patient denies any tobacco usage or history of. Screenin:11 [facility] ED Fall Risk Assessment (Adult) History of falling in the last 3 months, jj7 including since admission No falls in past 3 months (0 pts) Confusion or Disorientation No (0 pts) Intoxicated or Sedated No (0 pts) Impaired Gait No (0 pts) Mobility Assist Device Used No (0 pt) Altered Elimination No (0 pt) Score/Fall Risk Level 0 - 2 = Low Risk Oriented to surroundings, Maintained a safe environment, Educated pt \\T\\ family on fall prevention, incl call for assistance when getting out of bed. Abuse screen: Denies threats or abuse. Nutritional screening: No deficits noted. Tuberculosis screening: No symptoms or risk factors identified. Assessment: 20:10 Reassessment:. Reassessment: ASSUMED CARE OF PT. PT LYING IN BED. C/O BODY ACHES AND jj7 HEADACHE. AT BEDSIDE. CALL [place] CRUZ IN REACH. General: Appears in no apparent distress. uncomfortable, Behavior is calm, cooperative, appropriate for age. Neuro: Reports headache. GI: No deficits noted. Abdomen is flat. 22:00 Reassessment: PT TOLERATING FLUIDS WELL. jj7 Vital Signs: 18:26 BP 122 / 67; Pulse 106; Resp 17; Temp 97; Pulse Ox 96% ; Weight 104.33 kg; Height 6 ft. ll1 0 in. ; Pain 8/10; 20:09 BP 130 / 70; Pulse 88; Resp 17; Pulse Ox 98% ; jj7 21:00 BP 122 / 74; Pulse 82; Resp 16; Pulse Ox 97% ; jj7 22:10 BP 142 / 74; Pulse 87; Resp 17; Pulse Ox 100% ; jj7 18:26 Body Mass Index 31.19 (104.33 kg, 182.88 cm) ll1 18:26 Pain Scale: Adult ll1 [place] Coma Score: 22:18 Eye Response: spontaneous(4). Motor Response: obeys commands(6). Verbal Response: rv oriented(5). Total: 15. ED Course: 18:09 Patient arrived in ED. gm2 18:12 Jasmin Bagley PA-C [facility]. sb4 18:12 Efrain Izquierdo MD is Attending Physician. sb4 18:27 Triage completed. ll1 18:28 Arm band placed on. ll1 19:10 Inserted saline lock: 20 gauge in right forearm, using aseptic technique. Blood nj1 collected. Ultrasound guided. Catheter tip well visualized within vasculature during placement. 19:26 COVID-19/FLU A+B/RSV Sent. nj1 19:44 Chest Pa And Lat (2 Views) XRAY In Process Unspecified. EDMS 20:01 Loren Hubbard, LATA is Primary Nurse. jj7 20:11 Patient has correct armband on for positive identification. Placed in gown. Bed in low jj7 position. Call light in reach. Side rails up X 1. Adult w/ patient. Provided Education on: CALL [place]UZ USE. Client placed on continuous cardiac and pulse oximetry monitoring. NIBP monitoring applied. engine monitor on. Warm blanket given. 20:11 No provider procedures requiring assistance completed. jj7 20:21 EKG done, by fuel verification technician. reviewed by Jasmin Bagley PA-C. oe 20:48 CT Chest Abdomen Pelvis W/O Contrast In Process Unspecified. EDMS 21:32 Attending Physician role handed off by Efrain Izquierdo MD sp4 21:32 Osito Nagy MD is Attending Physician. sp4 21:55 UAM Sent. jj7 22:02 Vandana Moser MD is Referral Physician. sb4 22:18 IV discontinued, intact, bleeding controlled, No redness/swelling at site. Pressure rv dressing applied. Administered Medications: 20:05 Drug: NS 0.9% IV 500 ml IV at bolus once Route: IV; Rate: bolus; Site: right forearm; rv 22:18 Follow up: IV Status: Completed infusion; IV Intake: 500ml rv Medication: 22:18 VIS not applicable for this client. rv Intake: 22:18 IV: 500ml; Total: 500ml. rv Outcome: 22:04 Discharge ordered by . sb4 22:18 Discharged to home ambulatory, with family, rv 22:18 Condition: good 22:18 Discharge instructions given to patient, family, Instructed on discharge instructions, follow up and referral plans. Demonstrated understanding of instructions, follow-up care, 22:19 Patient left the ED. rv Signatures: Dispatcher [employer] EDMS Kvng Nazario Ronaldo RN RN rv Enoch Pat RN RN ll1 Loren Hubbard RN RN Jasmin Garsia, PA-C PA-C sb4 Osito Nagy MD MD sp4 Rachelle Rucker RN RN nj1 Faby Chavez gm2 Corrections: (The following items were deleted from the chart) 18:29 18:26 Chief complaint: Patient states: N/V, Loose stools, chills, [place]Z, fatigue, not ll1 feeling well for [address] Macias ll1
[2023-08-26 04:52] VITALS: BP 142/74; TEMP 97; O2SAT 100
--- NOTE | 2023-08-26 13:37 | EKG ---
Test Date: 2023-08-25 Test Time: 20:09:02 Medical Insurance Clerk: GABRIELLA MEASUREMENT RESULTS: Intervals: Rate: 88 AK: 142 QRSD: 98 QT: 354 QTc: 428 [place]: P: 40 AK: 142 QRS: -15 T: 75 INTERPRETIVE STATEMENTS: Normal sinus rhythm Nonspecific ST and T wave abnormality Abnormal ECG Compared to ECG 02/21/2023 10:47:13 ST (T wave) deviation now present Fusion complex(es) no longer present Electronically Signed On 08-26-23 13:36:11 CDT by Damian Jeong
== END 2023-08-25 22:19 | disposition home or self-care (01) ==
LOC: ER 18:04
DX: C78.7 Secondary malignant neoplasm of liver and intrahepatic bile duct (principal); E86.0 Dehydration; C64.9 Malignant neoplasm of unspecified kidney, except renal pelvis; Z90.5 Acquired absence of kidney; I10 Essential (primary) hypertension; Z11.52 Encounter for screening for COVID-19; Z91.018 Allergy to other foods
CPT/HCPCS: 96361; 93005; 87040 ×2; 85025; 81001; 36415; 85610; 82947; 83605; 85730; 80053; 0241U; 71250; 74176; 71046; 96360; 99285; J7040

== ENCOUNTER 2023-09-07 07:51 | Day surgery (SDC) | payer OTHER, MEDICARE ==
[2023-09-07] MEDS ORDERED: NA CHLORIDE 0.9% 1,000 ML ONE (07:58)
[2023-09-07] MEDS ORDERED: MIDAZOLAM HCL 2 MG/2 ML INJ ONE (08:51)
[2023-09-07] MEDS ORDERED: NALOXONE HCL 2 MG/2 ML VIAL ONE (08:52)
[2023-09-07] MEDS ORDERED: FENTANYL CITR 100 MCG/2 ML ONE (08:52)
[2023-09-07] MEDS ORDERED: HYDROCODONE/APAP 7.5/325 MG TAB ONE (11:22)
[2023-09-07 13:34] VITALS: BMI 31.7
[2023-09-07 14:07] VITALS: BP 105/4; TEMP 97.6; O2SAT 97
--- NOTE | 2023-09-07 17:43 | RAD REPORT ---
EXAM DESCRIPTION: CT - Liver Biopsy [facility] CT - 09/07/2023 10:44 am CLINICAL HISTORY: Liver mass. Renal cell carcinoma TECHNIQUE: Risks, benefits and alternatives to the procedure were explained to the patient and infor med consent obtained Patient was pre-medicated with intravenous fentanyl and Versed . Conscious sedation was performed wit h a nurse in attendance for approximately 45 minutes. Vital signs monitored The patient was placed supine into the CT scanner. Skin and deeper tissues were anesthetized with Lidocaine. Under CT guidance a 17 gauge needle was advanced into a lesion within the posterior segment right lob e of the liver. Through this an 18 gauge needle was advanced and four 2 centimeter core specimens obt ained and given to pathology in attendance. Post biopsy images do not demonstrate hematoma. Patient experienced no immediate complication All CT scans are performed using dose optimization technique as appropriate and may include automated exposure control or mA/KV adjustment according to patient size. IMPRESSION: Core biopsies of a hepatic lesion
== END 2023-09-07 13:35 | disposition home or self-care (01) ==
LOC: DS 07:51
PROVIDERS: ATTEND Internal Medicine Nephrology
DX: C78.7 Secondary malignant neoplasm of liver and intrahepatic bile duct (principal); C64.2 Malignant neoplasm of left kidney, except renal pelvis; R16.0 Hepatomegaly, not elsewhere classified; Z90.5 Acquired absence of kidney
CPT/HCPCS: 88307; 88333; 47000; J2250; J3010; J7030; J2310

== ENCOUNTER 2023-09-16 10:31 | Inpatient (IN) | payer OTHER, MEDICARE ==
[2023-09-16] MEDS ORDERED: NA CHLORIDE 0.9% 1,000 ML ONE ×2 (11:19→21:11)
[2023-09-16 12:03] LABS: Absolute Basophils 0.1 K/uL (0-0.5); Absolute Eosinophils 0.1 K/uL (0-0.5); Absolute Lymphocytes (CBC) 0.6 K/uL (0.7-4.9); Absolute Monocytes 1.1 K/uL (0.1-1.3); Absolute Neutrophil 23.2 K/uL (1.8-8.0); Basophils % 0.3 % (0-1.3); Eosinophils % 0.5 % (0-4.4); Hematocrit 24.6 % (39.6-49.0); Hemoglobin 7.9 g/dL (13.6-17.9); Lymphocytes % 2.6 % (15.3-44.8); MCH 25.5 pg (27.0-35.0); MCV 79.7 fL (80-100); MPV 7.7 fL (7.6-11.3); Monocytes % 4.5 % (3.3-12.3); Neutrophils % 92.1 % (41.7-73.7); Platelets 376 thou/uL (152-406); RBC Red Blood Cell Count 3.08 M/uL (4.33-5.43); Red Cell Distribution Width 16.8 % (12.1-15.2)
[2023-09-16 12:15] LABS: PT Prothrombin Time 14.1 SECONDS (9.5-12.5); PTT, Activated Partial Thromb 29.3 SECONDS (24.3-36.9); Protime INR 1.29
[2023-09-16 12:24] LABS: Albumin 2.3 g/dL (3.4-5.0); Albumin/Globulin Ratio 0.5 (1.1-1.8); Anion Gap 14.2 mEq/L (5.0-15.0); Globulin 4.9 g/dL (2.3-3.5); Magnesium 1.9 mg/dL (1.6-2.4); Potassium 5.2 mEq/L (3.5-5.1); Protein, Total 7.2 g/dL (6.4-8.2); Troponin High Sensitivity 6.9 pg/mL (<58.9)
[2023-09-16 12:50] LABS: Anisocytosis 1+; Blood Morphology Comment NOTED (NOT SEEN); Hypochromasia 1+; Platelet Estimate ADEQ; White Blood Cell Scan OK (OK)
--- NOTE | 2023-09-16 14:31 | RAD REPORT ---
EXAM DESCRIPTION: RAD - Chest Single View - 09/16/2023 2:17 pm CLINICAL HISTORY: CHEST PAINS COMPARISON: Chest Pa And Lat (2 Views) dated 08/25/2023; Chest Pa And Lat (2 Views) dated 02/21/2023; Chest Pa And Lat (2 Views) dated 06/28/2022; Chest Pa And Lat (2 Views) dated 04/29/2022; Liver Biopsy Perc CT dated 09/07/2023; Chest Abd Pelvis Wo Con dated 08/25/2023 FINDINGS: Lines: None. Lungs: Increasing linear basilar opacities. Pleural: No significant pleural effusions or pneumothorax. Cardiac: Enlarged cardiopericardial silhouette which may be magnified by low lung volumes. Mediastinum: Within normal limits. Bones: No acute fractures. Other: None IMPRESSION: Increasing linear basilar opacities that could reflect atelectasis and/or consolidative airspace disease.
--- NOTE | 2023-09-16 17:10 | RAD REPORT ---
EXAM DESCRIPTION: CTAbdomen Pelvis Wo Contrast - 09/16/2023 4:52 pm CLINICAL HISTORY: PAIN, LIVER CANCER COMPARISON: Liver Biopsy Perc CT dated 09/07/2023; Abdomen Pelvis Wo Contrast dated 07/14/2022; Abdom en Pelvis Wo Contrast dated 04/23/2022; Stone Protocol dated 07/08/2020; Chest Single View dated 2023; Chest Abd Pelvis Wo Con dated 08/25/2023 TECHNIQUE: CT of the abdomen and pelvis was performed. All CT scans are performed using dose optimization technique as appropriate and may include automated exposure control or mA/KV adjustment according to patient size. FINDINGS: Lower chest: Mild consolidative airspace disease present in the extreme left lung base. Sm all pericardial effusion. Liver: Liver lesions which have possibly increased in size. For example, there is a conglomerate mass effect in the right hepatic lobe measuring 10.1 cm, previously closer to 6 cm. Biliary: No biliary ductal dilatation. Stomach: No significant focal abnormality. Duodenum: No significant focal abnormality. Pancreas: No significant abnormality. Spleen: No significant abnormality. Adrenal: No suspicious lesions. Kidney/ureter: No hydronephrosis. No renal calculi. Left nephrectomy. Retroperitoneum: No retroperitoneal adenopathy. Vascular: No aneurysm. Atherosclerosis. 3.1 cm infrarenal abdominal aortic aneurysm is unchanged. Thr ee year follow-up was previously recommended. Bowel: Appendectomy. Moderate colonic stool which could indicate constipation.. Peritoneum: No ascites or free air. Prior hernia repair in lower abdominal wall. Bladder: Grossly unremarkable. Reproductive: No adnexal masses. Bones: No acute fracture. Other: n/a IMPRESSION: 1. Multiple liver masses again identified possibly with some progression despite the rox rt interval compared with 08/25/2023. 2. Mild airspace disease at the left lung base which could reflect either mild pneumonitis or pneumon ia.
[2023-09-16] MEDS ORDERED: ALBUTEROL 2.5 MG/3 ML NEB SOL NEB PRN (17:47)
[2023-09-16] MEDS ORDERED: ONDANSETRON 4 MG/2 ML VIAL IV PRN (17:47)
[2023-09-16] MEDS ORDERED: IPRATROPIUM BROM 0.5MG/2.5ML NEB PRN (17:47)
[2023-09-16] MEDS: NA CHLORIDE 0.9% 1,000 ML IV SCH (18:00)
[2023-09-16 18:04] LABS: Absolute Eosinophils 0.2 K/uL (0-0.5); Absolute Monocytes 1.1 K/uL (0.1-1.3); Absolute Neutrophil 17.1 K/uL (1.8-8.0); Basophils % 0.3 % (0-1.3); Eosinophils % 0.8 % (0-4.4); Hematocrit 20.6 % (39.6-49.0); Hemoglobin 6.6 g/dL (13.6-17.9); Lymphocytes % 5.2 % (15.3-44.8); MCH 25.7 pg (27.0-35.0); MCV 80.1 fL (80-100); MPV 7.1 fL (7.6-11.3); Monocytes % 5.7 % (3.3-12.3); Platelets 291 thou/uL (152-406); RBC Red Blood Cell Count 2.58 M/uL (4.33-5.43); Red Cell Distribution Width 16.5 % (12.1-15.2)
--- NOTE | 2023-09-16 19:21 | P.CNS ---
Date of Consult: 09/16/23 Reason for Consult: Patient on inspiration/abdominal pain status post liver biopsy Requesting Physician: Kailey Valdez Chief Complaint: Abdominal pain along with pain on inspiration History of Present Illness: Patient is a 73-year-old gentleman who has a history of renal cell cancer who presents to the emergency room with abdominal pain. Patient was in the hospital on September 06 for a liver biopsy. Since that time patient has noticed he has been having some abdominal discomfort which has been gradually getting worse. Patient was seen in the emergency room, and at that time there was concern for pleurisy. Patient was found to have acute renal insufficiency. Patient has a prior nephrectomy because of renal cell carcinoma. Patient follows up with nephrology, Dr. Brice. Patient was also noted to be anemic. Patient's hemoglobin was down to 7.9. Patient given IV fluids and patient's clinical status has improved. Imaging study is pending along with CT of the abdomen/pelvis. If patient with any signs of hepatic bleeding then patient may need transfer to a tertiary care facility. However, if everything looks fairly stable then patient can be admitted to the hospital and will consider continuing with anticoagulation for ruling out a possible pulmonary embolism. Patient will need a VQ scan performed. 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 Patient's long-term prognosis is poor, and patient will need continuing follow-up with urology. Allergies lactose Allergy (Verified 05/18/23 12:45) headaches Home Medications: Latanoprost/Pf [Latanoprost 0.005% Eye Drop] 1 drop RIGHT EYE BEDTIME 07/23/20 Mv-Min/Folic/K1/Lycopen/Lutein [Centrum Silver Men Tablet] 1 each PO DAILY 07/23/20 Tamsulosin [Flomax*] 0.4 mg PO DAILY 07/23/20 Albuterol Sulfate [Ventolin Hfa] 18 gm IH DIRECTED PRN 04/29/22 Dorzolamide HCl/Pf [Dorzolamide 2% Eye Drop] 1 drop RIGHT EYE BID 04/29/22 Losartan Potassium [Cozaar] 25 mg PO DAILY 04/29/22 Pantoprazole [Protonix Tab*] 40 mg PO DAILY 04/29/22 Rosuvastatin [Crestor*] 20 mg PO DAILY 12/15/22 Cholecalciferol (Vitamin D3) [Vitamin D3] 2,000 unit PO DAILY AT SUPPER 02/21/23 Bumetanide 0.5 mg PO BID 05/18/23 Codeine/APAP [Tylenol W/Codeine #3 tab] 1 tab PO Q6HP PRN #12 tab 05/24/23 - Past Medical/Surgical History -: Benign prostatic hypertrophy -: Renal cell cancer -: Gastro esophageal reflux disease -: HTN -: Dyslipidemia -: Nephrectomy - Family History Father Family History: Reviewed- Non-Contributory - Social History Smoking Status: Former smoker Alcohol use: No CD- Drugs: No Review of Systems 10-point ROS is otherwise unremarkable Physical Examination reviewed General: Alert, In no apparent distress, Oriented x3, Cachectic HEENT: Atraumatic, PERRLA, Mucous membr. moist/pink, EOMI, Sclerae nonicteric Neck: Supple, 2+ carotid pulse no bruit, No Thyromegaly, No LAD, Without JVD or thyroid abnormality Respiratory: Crackles/rales Cardiovascular: Regular rate/rhythm, Normal S1 S2 Gastrointestinal: Normal bowel sounds, Soft and benign, Non-distended, Tenderness Musculoskeletal: No clubbing, No tenderness, Swelling Integumentary: No rashes Neurological: Normal gait, Normal speech, Normal tone, Sensation intact, Cranial nerves 3-12 intact, Normal affect, Abnormal strength Lymphatics: No axilla or inguinal lymphadenopathy Laboratory Data (last 24 hrs) 09/16/23 09/16/23 09/16/23 10:58 10:58 10:58 WBC 25.10 H Hgb 7.9 L Hct 24.6 L Plt Count 376 PT 14.1 H INR 1.29 APTT 29.3 Sodium 128 L Potassium 5.2 H BUN 56 H Creatinine 3.77 H Glucose 184 H Magnesium 1.9 Total Bilirubin 1.0 AST 16 ALT 56 Alkaline Phosphatase 713 H - Problems (1) Abdominal pain Current Visit: Yes Status: Acute (2) History of liver biopsy Current Visit: Yes Status: Acute (3) S/p nephrectomy Current Visit: Yes Status: Acute (4) Urothelial carcinoma with high risk of recurrence Current Visit: No Status: Acute
[2023-09-16] MEDS ORDERED: NA CHLORIDE 0.9% 250 ML ONE ×2 (19:54→23:50)
[2023-09-16] MEDS ORDERED: ACETAMINOPHEN 500 MG TAB ONE (21:11)
[2023-09-16] MEDS ORDERED: METHYLPREDNISOLONE 125 MG INJ ONE (21:11)
--- NOTE | 2023-09-16 21:30 | P.HP ---
Date of Service: 09/16/23 Chief Complaint: Abdominal pain along with pain on inspiration History of Present Illness: Patient is a 73-year-old gentleman who has a history of renal cell cancer who presents to the emergency room with abdominal pain. Patient was in the hospital on September 06 for a liver biopsy. Since that time patient has noticed he has been having some abdominal discomfort which has been gradually getting worse. Patient was seen in the emergency room, and at that time there was concern for pleurisy. Patient was found to have acute renal insufficiency. Patient has a prior nephrectomy because of renal cell carcinoma. Patient follows up with nephrology, Dr. Brice. Patient was also noted to be anemic. Patient's hemoglobin was down to 7.9. Patient given IV fluids and patient's clinical status has improved. Imaging study is pending along with CT of the abdomen/pelvis. If patient with any signs of hepatic bleeding then patient may need transfer to a tertiary care facility. However, if everything looks fairly stable then patient can be admitted to the hospital and will consider continuing with anticoagulation for ruling out a possible pulmonary embolism. Patient will need a VQ scan performed. 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 Patient's long-term prognosis is poor, and patient will need continuing follow-up with urology. Allergies lactose Allergy (Verified 05/18/23 12:45) headaches Home Medications: Latanoprost/Pf [Latanoprost 0.005% Eye Drop] 1 drop RIGHT EYE BEDTIME 07/23/20 Mv-Min/Folic/K1/Lycopen/Lutein [Centrum Silver Men Tablet] 1 each PO DAILY 07/23/20 Tamsulosin [Flomax*] 0.4 mg PO DAILY 07/23/20 Albuterol Sulfate [Ventolin Hfa] 18 gm IH DIRECTED PRN 04/29/22 Dorzolamide HCl/Pf [Dorzolamide 2% Eye Drop] 1 drop RIGHT EYE BID 04/29/22 Losartan Potassium [Cozaar] 25 mg PO DAILY 04/29/22 Pantoprazole [Protonix Tab*] 40 mg PO DAILY 04/29/22 Rosuvastatin [Crestor*] 20 mg PO DAILY 04/29/22 Cholecalciferol (Vitamin D3) [Vitamin D3] 2,000 unit PO DAILY AT SUPPER 02/21/23 Bumetanide 0.5 mg PO BID 05/18/23 Codeine/APAP [Tylenol W/Codeine #3 tab] 1 tab PO Q6HP PRN #12 tab 05/24/23 - Past Medical/Surgical History -: Benign prostatic hypertrophy -: Renal cell cancer -: Gastro esophageal reflux disease -: HTN -: Dyslipidemia -: Nephrectomy - Family History Father Family History: Reviewed- Non-Contributory - Social History Smoking Status: Former smoker Alcohol use: No CD- Drugs: No Review of Systems 10-point ROS is otherwise unremarkable Physical Examination Vitals: reviewed General: Alert, In no apparent distress, Oriented x3, Cachectic HEENT: Atraumatic, PERRLA, Mucous membr. moist/pink, EOMI, Sclerae nonicteric Neck: Supple, 2+ carotid pulse no bruit, No Thyromegaly, No LAD, Without JVD or thyroid abnormality Respiratory: Crackles/rales Cardiovascular: Regular rate/rhythm, Normal S1 S2 Gastrointestinal: Normal bowel sounds, Soft and benign, Non-distended, Tenderness Musculoskeletal: No clubbing, No tenderness, Swelling Integumentary: No rashes Neurological: Generalized weakness, Abnormal strength Lymphatics: No axilla or inguinal lymphadenopathy Laboratory Data (last 24 hrs) 09/16/23 09/16/23 09/16/23 10:58 10:58 10:58 WBC 25.10 H Hgb 7.9 L Hct 24.6 L Plt Count 376 PT 14.1 H INR 1.29 APTT 29.3 Sodium 128 L Potassium 5.2 H BUN 56 H Creatinine 3.77 H Glucose 184 H Magnesium 1.9 Total Bilirubin 1.0 AST 16 ALT 56 Alkaline Phosphatase 713 H - Problems (1) Abdominal pain Current Visit: Yes Status: Acute (2) Acute on Chronic kidney disease Current Visit: Yes Status: Acute (3) S/p nephrectomy Current Visit: Yes Status: Acute (4) Urothelial carcinoma with liver metastasis Current Visit: No Status: Acute (5) Anemia, of chronic disease Current Visit: Yes Status: Acute (6) Pleuritic chest pain, pneumonia Current Visit: Yes Status: Acute (7) Leukocytosis Current Visit: No Status: Acute Plan: 1. Abdominal pain/ pneumonia with pleuritic pain / right lower lobe pneumonia; continue with IV antibiotics. Continue with IV steroids for pleurisy pain 2. Anemia; transfuse 2 units of packed red blood cells 3. Acute on chronic renal failure; gentle hydration. Monitor renal function 4. Metastatic urothelial carcinoma with liver metastasis; long-term prognosis is very poor. Patient will possibly need discussion re: treatment and then possibly discuss comfort measures 5. GI/DVT prophylaxis
[2023-09-16] MEDS: Levofloxacin 750mg IV 750 MG/150 ML BAG IV ONE (21:40)
[2023-09-16] MEDS: ACETAMINOPHEN 500 MG TAB PO PRN (22:03)
[2023-09-17] MEDS: METHYLPREDNISOLONE 125 MG INJ IV ONE
[2023-09-17] MEDS: METHYLPREDNISOLONE 125 MG INJ IV SCH
[2023-09-17] MEDS: FUROSEMIDE 20 MG/ 2ML VIAL IV SCH (04:47)
[2023-09-17 06:32] LABS: Absolute Lymphocytes (CBC) 0.5 K/uL (0.7-4.9); Absolute Monocytes 0.3 K/uL (0.1-1.3); Absolute Neutrophil 18.1 K/uL (1.8-8.0); Basophils % 0.1 % (0-1.3); Eosinophils % 0.1 % (0-4.4); Hemoglobin 9.7 g/dL (13.6-17.9); Lymphocytes % 2.8 % (15.3-44.8); MCH 26.9 pg (27.0-35.0); MCHC 33.6 g/dL (32.0-36.0); MCV 80.2 fL (80-100); MPV 7.1 fL (7.6-11.3); Monocytes % 1.4 % (3.3-12.3); Neutrophils % 95.6 % (41.7-73.7); Percent Reticulocyte Count 0.86 % (0.4-2.05); Platelets 301 thou/uL (152-406); RBC Red Blood Cell Count 3.62 M/uL (4.33-5.43); RBC Red Blood Cell Count 3.64 M/uL (4.33-5.43); Red Cell Distribution Width 17.3 % (12.1-15.2)
[2023-09-17 06:50] LABS: Albumin 1.9 g/dL (3.4-5.0); Albumin/Globulin Ratio 0.4 (1.1-1.8); Anion Gap 13.2 mEq/L (5.0-15.0); Bilirubin Total 1.1 mg/dL (0.2-1.0); Globulin 4.6 g/dL (2.3-3.5); Magnesium 2.1 mg/dL (1.6-2.4); Phosphorus 4.5 mg/dL (2.5-4.9); Potassium 5.2 mEq/L (3.5-5.1); Protein, Total 6.5 g/dL (6.4-8.2)
[2023-09-17] MEDS: TAMSULOSIN 0.4 MG SR CAP PO SCH (10:05)
[2023-09-17] MEDS: ENOXAPARIN 30 MG/0.3 ML SQ SCH (13:12)
--- NOTE | 2023-09-17 14:10 | P.PN ---
Subjective Date of Service: 09/17/23 Patient is showing some improvement. Discussed biopsy results with the family. Will notify oncology on Tuesday regarding liver biopsy results. Patient procalcitonin level is also elevated. Continue with IV antibiotic therapy. Patient was complaining on ulcers of the mouth. On further examination patient with oropharyngeal candidiasis. Will start patient on medications for treatment including nystatin and Diflucan. Will go ahead and downgrade patient to [facility] floor and continue with monitoring H&H. Iron supplementation has also been started. Review of Systems 10-point ROS is otherwise unremarkable Physical Examination - Vital Signs Temperature: 98.6 F Blood Pressure: 114/49 Pulse: 48 Respirations: 19 Pulse Ox (%): 99 - Physical Exam General: Alert, In no apparent distress, Oriented x3 HEENT: Atraumatic, PERRLA, EOMI Neck: Supple, JVD not distended Respiratory: Diminished (Basilar rhonchi's on the right) Cardiovascular: Regular rate/rhythm, Normal S1 S2 Gastrointestinal: Normal bowel sounds, Soft and benign, Non-distended, No tenderness Musculoskeletal: No clubbing, No swelling, No tenderness Integumentary: No rashes Neurological: Sensation intact, Cranial nerves 3-12 intact - Studies Laboratory Data (last 24 hrs) 09/16/23 09/16/23 09/16/23 17:07 15:22 10:58 WBC Cancelled Hgb Cancelled Hct Cancelled Plt Count Cancelled PT INR APTT Sodium 129 L 128 L Potassium 5.0 5.2 H BUN 52 H 56 H Creatinine 3.73 H 3.77 H Glucose 174 H 184 H Magnesium 1.9 Total Bilirubin 1.0 AST 16 ALT 56 Alkaline Phosphatase 713 H 09/16/23 09/16/23 10:58 10:58 WBC 25.10 H Hgb 7.9 L Hct 24.6 L Plt Count 376 PT 14.1 H INR 1.29 APTT 29.3 Sodium Potassium BUN Creatinine Glucose Magnesium Total Bilirubin AST ALT Alkaline Phosphatase Medications List Reviewed: Yes Assessment & Plan - Problems (Diagnosis) (1) Abdominal pain Current Visit: Yes Status: Acute (2) History of liver biopsy Current Visit: Yes Status: Acute (3) S/p nephrectomy Current Visit: Yes Status: Acute (4) Urothelial carcinoma with high risk of recurrence Current Visit: No Status: Acute (5) Right lower lobe pneumonia Current Visit: Yes Status: Acute (6) Malignant neoplasm of kidney metastatic to liver Current Visit: Yes Status: Acute (7) Anemia Current Visit: Yes Status: Acute (8) Acute kidney injury superimposed on CKD Current Visit: Yes Status: Acute (9) Oropharyngeal candidiasis Current Visit: Yes Status: Acute (10) Hyponatremia Current Visit: Yes Status: Acute (11) Elevated procalcitonin Current Visit: Yes Status: Acute (12) Iron deficiency Current Visit: Yes Status: Acute - Plan Plan: 1. Patient with right lower lobe pneumonia with pleuritic pain; continue with IV antibiotics along with nebs and steroids. Repeat chest x-ray in the morning. 2. Patient with metastatic renal cell carcinoma with metastasis to the liver; discussed with family regarding prognosis. Will try to see if Oncology can see the patient Tuesday 3. Patient with questionable seizure-like activity; showed me a video where patient coughs and then tends to have a generalized tonoclonic reaction and becomes postictal afterwards. Will go ahead and get an MRI of the brain for evaluation of brain metastasis. 4. Oropharyngeal candidiasis; continue with Diflucan and nystatin 5. Elevated procalcitonin level secondary to bacterial pneumonia; this has decreased significantly. Anticipate improvement over the next 48 hours and possible discharge in a.m.. 6. Gi DVT prophylaxis Discharge Plan: Home Plan to discharge in: Greater than 2 days - Advance Directives Does patient have a Living Will: Yes Does patient have a Durable POA for Healthcare: Yes - Code Status/Comfort Care Code Status Assessed: Yes Code Status: Full Code Critical Care: No Time Spent Managing PTS Care (In Minutes): 35
[2023-09-17 15:00] VITALS: BMI 31.1
[2023-09-17] MEDS: SODIUM ZIRCONIUM CYCLOSILICATE 10 GM/PKT PO ONE (15:18)
[2023-09-17] MEDS: SODIUM BICARB 325 MG TAB PO ONE ×2 (15:18→16:24)
[2023-09-17] MEDS: FLUCONAZOLE 100mg IVPB 100 MG/50 ML BAG IV SCH (16:24)
[2023-09-17] MEDS: SOD FERRIC GLUC COMPLX/SUCROSE 125 MG in NA CHLORIDE 0.9% 100 ML IV SCH (16:59)
[2023-09-17] MEDS: NYSTATIN 500,000 UNIT/5 ML UDC PO SCH (16:59)
--- NOTE | 2023-09-17 17:33 | PN ---
Date of Progress Note: 09/17/2023 Subjective: The patient seen at [facility] in intensive care unit in room 3. The patient is alert, awake. His is by the bedside, able to talk in full sentences, seems overall comforta ble, breathing comfortably. Denies any chest pain. He is alert, awake, reasonable historian, able t o give answers. Allergies lactulose. Medications are in the chart and reviewed. Past medical histo ry of renal cell carcinoma with surgery, removal of left kidney. Recently had biopsy of bladder done by Dr. Shelton. Has had treatment for oncology with Dr. Gandara post renal cell carcinoma. History of BPH. History of gastric esophageal reflux. History of dyslipidemia. Now with a question of metast asis to the liver. Question from previous cancer. The patient also complaining of some swallowing d ifficulty and mouth discomfort. Presented to the hospital with some mild cough and shortness of narciso th and not looking well. The insisted he come in. Was found to have low hemoglobin. Hemoglobi n is now stabilized status post transfusion. His hemoglobin is up to 9 range. Does not seem to have any active bleeding going on. Liver biopsy is concerning for urothelial metastasis to the liver. H ome medications and current hospital medications reviewed. Family History: Noncontributory at this point. Social History: Former smoker. Does not drink. Does not smoke or take any drugs currently. 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 He used to work for the [employer]. However, is now retired. Rec ently about 2 years ago to someone he knew from a long time ago after his 's and se ems to be happy and is supportive. Physical Examination: General: The patient is comfortable. Vital Signs: Blood pressure is around 114/50. His pulse is around 60 on my exam and regular, respir ations around 14 and comfortable, O2 sats are in the mid 90s to high 90 range on room air. He is not requiring any oxygen. Lungs: Clear. Abdomen: Soft. Extremities: Trace edema. HEART: Sounds are regular. Laboratory Data: Reviewed. Labs show WBC counts are improving. On arrival on September 15, his WBC was up to 25, now down to 18.9, yesterday was 19.4, hemoglobin is 9.7, improved from 6.6 yesterday, hemat ocrit is 29, platelet count of 301. Chemistry shows sodium 128, stable from 129 yesterday, potassium is 5.2, relatively stable from September 15 when it was 5.2, as well. Bicarb is at 19, BUN at 34, creati nine at 3.4, glucose level of 216, magnesium at 2.1. ProBNP was at 1448. Albumin at about 1.9. Pro lactin was 25.45. B12 level is 1253. Medications: Include furosemide, what was given with PRBCs. He has been on methylprednisolone. He got IV fluids about 50 cc an hour of normal saline. Flomax. He is on Levaquin currently at about q. 48 hours, which seems to be adjusted for his renal failure. Also on Zofran for nausea p.r.n. Assessment And Plan: The patient with chronic kidney disease stage 4 with issue of question metastas is with renal cell carcinoma, has had nephrectomy in the past, getting evaluated by Urology and may n eed further evaluation by Oncology. If starts chemotherapy and kidney function worsens, may need jim lysis support as well. Mild hyperkalemia, mild metabolic acidosis. We will start him on a low dose bicarb. Will monitor hemoglobin to see if further transfusions may be needed. Currently seems stabl e from that point of view. Has gotten dose of Lasix. Blood pressures are stable. Check BMP and con long term care phlebotomist using Lasix further if any difficulty with breathing, volume overload and/or potassium issues. Currently seems to be stable from the volume point of view. /VICTOR HUGO Voice ID: [id number] Report ID: [id number]
--- NOTE | 2023-09-17 18:45 | RAD REPORT ---
EXAM DESCRIPTION: US - Extrem Venous W Compress Santiago - 09/17/2023 6:38 pm CLINICAL HISTORY: DVT COMPARISON: Extrem Venous W Compress Santiago dated 07/09/2022 TECHNIQUE: Real-time sonographic evaluation of the lower extremity deep venous systems was performed using color Doppler, grayscale, and compression. FINDINGS: Bilateral lower extremities. Normal compressibility, flow augmentation, phasic flow and spontaneous flow is identified in both the left and right lower extremity deep venous systems. No intraluminal filling defects seen. IMPRESSION: No DVT in either lower extremity.
[2023-09-17] MEDS: METHYLPREDNISOLONE 40 MG INJ IV SCH (20:36)
--- NOTE | 2023-09-18 08:59 | P.PN ---
Subjective Date of Service: 09/18/23 Patient is showing some improvement. Discussed biopsy results with the family. Will notify oncology on Tuesday regarding liver biopsy results. Patient procalcitonin level is also elevated. Continue with IV antibiotic therapy. Patient was complaining on ulcers of the mouth. On further examination patient with oropharyngeal candidiasis. Will start patient on medications for treatment including nystatin and Diflucan. Will go ahead and downgrade patient to [facility] floor and continue with monitoring H&H. Iron supplementation has also been started. Started on fluconazole 200 daily per pharmacy dose, nystatin suspension 3 times daily for mouth ulcers - Physical Exam General: Alert, In no apparent distress, Oriented x3 HEENT: Atraumatic, PERRLA, EOMI Neck: Supple, JVD not distended Respiratory: Diminished (Basilar rhonchi's on the right) Cardiovascular: Regular rate/rhythm, Normal S1 S2 Gastrointestinal: Normal bowel sounds, Soft and benign, Non-distended, No tenderness Musculoskeletal: No clubbing, No swelling, No tenderness Integumentary: No rashes Neurological: Sensation intact, Cranial nerves 3-12 intact <Courtney King - Last Filed: 09/18/23 08:46> Date of Service: 09/18/23 <Amy Brown - Last Filed: 09/18/23 23:58> Review of Systems Per HPI <Courtney King - Last Filed: 09/18/23 08:46> Physical Examination - Vital Signs Temperature: 97.3 F Blood Pressure: 117/67 Pulse: 53 Respirations: 16 Pulse Ox (%): 96 - Studies Medications List Reviewed: Yes <Courtney King - Last Filed: 09/18/23 08:46> Assessment And Plan - Plan Assessment plan Abdominal pain Urothelial carcinoma with high risk of recurrence acute Malignant neoplasm of kidney metastatic to liver Elevated procalcitonin likely secondary to metastatic CA Sepsis without shock likely secondary to pneumonia As needed analgesics, Flomax Follow-up with oncology Trend calcium Brain MRI Acute hypoxic respiratory failure secondary to pneumonia acute Right lower lobe pneumoniae IV Levaquin, nebs, O2 keep sats greater than 90 VQ scan Iron deficient anemia acute Trend H&H transfuse less than 7 Iron infusion Acute kidney injury superimposed on CKD Trend kidney function gentle IV nephrology consult Hyponatremia Trend sodium replace, gentle IV fluid Sodium tablets Oropharyngeal candidiasis acute Fluconazole, nystatin Full code DVT Lovenox Diet regular Disposition: Pending hospital course Discharge Plan: Home - Code Status/Comfort Care Code Status: Full Code Critical Care: No Time Spent Managing PTS Care (In Minutes): 35 <Courtney King - Last Filed: 09/18/23 08:46> - Current Problems (Diagnosis) (1) Abdominal pain Current Visit: Yes Status: Acute (2) History of liver biopsy Current Visit: Yes Status: Acute (3) S/p nephrectomy Current Visit: Yes Status: Acute (4) Urothelial carcinoma with high risk of recurrence Current Visit: No Status: Acute (5) Right lower lobe pneumonia Current Visit: Yes Status: Acute (6) Malignant neoplasm of kidney metastatic to liver Current Visit: Yes Status: Acute (7) Anemia Current Visit: Yes Status: Acute (8) Acute kidney injury superimposed on CKD Current Visit: Yes Status: Acute (9) Oropharyngeal candidiasis Current Visit: Yes Status: Acute (10) Hyponatremia Current Visit: Yes Status: Acute (11) Elevated procalcitonin Current Visit: Yes Status: Acute (12) Iron deficiency Current Visit: Yes Status: Acute <Amy Brown - Last Filed: 09/18/23 23:58>
[2023-09-18] MEDS: FLUCONAZOLE 200mg IVPB 200 MG/100 ML BAG IV SCH (10:00)
[2023-09-18 11:34] LABS: Absolute Basophils 0.1 K/uL (0-0.5); Absolute Lymphocytes (CBC) 0.7 K/uL (0.7-4.9); Absolute Monocytes 0.7 K/uL (0.1-1.3); Absolute Neutrophil 20.8 K/uL (1.8-8.0); Basophils % 0.3 % (0-1.3); Hematocrit 29.2 % (39.6-49.0); Hemoglobin 9.4 g/dL (13.6-17.9); Lymphocytes % 3.2 % (15.3-44.8); MCHC 32.3 g/dL (32.0-36.0); MCV 80.4 fL (80-100); MPV 7.6 fL (7.6-11.3); Neutrophils % 93.5 % (41.7-73.7); Platelets 276 thou/uL (152-406); RBC Red Blood Cell Count 3.63 M/uL (4.33-5.43); Red Cell Distribution Width 17.7 % (12.1-15.2)
[2023-09-18 12:02] LABS: Albumin 1.7 g/dL (3.4-5.0); Albumin/Globulin Ratio 0.4 (1.1-1.8); Anion Gap 14.6 mEq/L (5.0-15.0); Bilirubin Total 0.5 mg/dL (0.2-1.0); Globulin 3.9 g/dL (2.3-3.5); Magnesium 2.1 mg/dL (1.6-2.4); Phosphorus 4.6 mg/dL (2.5-4.9); Potassium 4.6 mEq/L (3.5-5.1); Protein, Total 5.6 g/dL (6.4-8.2)
[2023-09-18] MEDS: Levofloxacin500mg IV 500 MG/100 ML BAG IV SCH (20:22)
[2023-09-19 04:31] LABS: Absolute Lymphocytes (CBC) 1.1 K/uL (0.7-4.9); Absolute Monocytes 0.9 K/uL (0.1-1.3); Basophils % 0.2 % (0-1.3); Eosinophils % 0.2 % (0-4.4); Hematocrit 29.1 % (39.6-49.0); Hemoglobin 9.5 g/dL (13.6-17.9); Lymphocytes % 4.7 % (15.3-44.8); MCH 26.3 pg (27.0-35.0); MCHC 32.5 g/dL (32.0-36.0); MCV 80.8 fL (80-100); MPV 7.6 fL (7.6-11.3); Monocytes % 3.8 % (3.3-12.3); Neutrophils % 91.1 % (41.7-73.7); Platelets 277 thou/uL (152-406); Red Cell Distribution Width 17.4 % (12.1-15.2)
[2023-09-19 04:32] LABS: Albumin 1.9 g/dL (3.4-5.0); Albumin/Globulin Ratio 0.5 (1.1-1.8); Bilirubin Total 0.5 mg/dL (0.2-1.0); Globulin 3.9 g/dL (2.3-3.5); Magnesium 2.2 mg/dL (1.6-2.4); Protein, Total 5.8 g/dL (6.4-8.2)
[2023-09-19 05:56] LABS: Differential Total Cells Count 100; Lymphocytes 10 % (15-42); Monocytes 2 % (0-10); Segmented Neutrophils 88 % (40-80)
[2023-09-19 05:57] LABS: Anisocytosis 2+; Blood Morphology Comment NOTED (NOT SEEN); Hypochromasia 1+; Platelet Estimate ADEQ
--- NOTE | 2023-09-19 09:16 | RAD REPORT ---
EXAM DESCRIPTION: NM - Vent Perfusion VQ Scan - 09/19/2023 9:07 am CLINICAL HISTORY: Shortness of breath COMPARISON: Chest x-ray September 19, 2023 TECHNIQUE: 18.2 Mci [id number] was administered by inhalation. First breath, equilibrium, and washout images of the lungs obtained 6.6 millicuries Technetium-99 MAA was administered intravenously. Anterior, posterior, lateral and ob lique views of the lungs were taken. FINDINGS: The lungs demonstrate relatively homogeneous radiotracer activity on ventilation and perfu enma sequences. No mismatched segmental or lobar perfusion defects are seen. IMPRESSION: No evidence of a pulmonary embolus
--- NOTE | 2023-09-19 09:16 | RAD REPORT ---
EXAM DESCRIPTION: [place] Single View09/19/2023 9:03 am CLINICAL HISTORY: Shortness breath COMPARISON: September 16, 2023 FINDINGS: A few areas of subsegmental atelectasis within the lung bases Upper lobes appear clear. Heart is normal size
--- NOTE | 2023-09-19 09:32 | P.PN ---
Subjective Date of Service: 09/19/23 uncomfortable, right diaphramatic pain, lungs with crackles, rhonchi to right <Myrna Caallen - Last Filed: 09/19/23 09:28> Date of Service: 09/19/23 <Justin Sauceda Rudy - Last Filed: 09/19/23 13:16> Review of Systems 10-point ROS is otherwise unremarkable General: As per HPI Respiratory: As per HPI Musculoskeletal: As per HPI Neurological: As per HPI <Myrna Caal Gus - Last Filed: 09/19/23 09:28> Physical Examination - Vital Signs Temperature: 97.2 F Blood Pressure: 157/74 Pulse: 73 Respirations: 28 Pulse Ox (%): 97 - Physical Exam General: Alert, Oriented x3, Mild distress, Other (uncomfortable, right abd/rib tenderness) HEENT: Normocephalic, PERRLA Neck: JVD not distended Respiratory: Crackles/rales, Rhonchi/gurgles, Other (RML/RLL) Cardiovascular: Normal pulses Gastrointestinal: Normal bowel sounds, Tenderness (RUQ) Musculoskeletal: No swelling Integumentary: No breakdown Neurological: Normal speech, Normal tone Lymphatics: No axilla or inguinal lymphadenopathy External genitalia: Deferred Rectal: Deferred - Studies Medications List Reviewed: Yes <Myrna Caallen - Last Filed: 09/19/23 09:28> Assessment And Plan - Plan - Problems (1) Abdominal pain Current Visit: Yes Status: Acute (2) Acute on Chronic kidney disease Current Visit: Yes Status: Acute (3) S/p nephrectomy Current Visit: Yes Status: Acute (4) Urothelial carcinoma with liver metastasis Current Visit: No Status: Acute (5) Anemia, of chronic disease Current Visit: Yes Status: Acute (6) Pleuritic chest pain, pneumonia Current Visit: Yes Status: Acute (7) Leukocytosis Current Visit: No Status: Acute Plan: 1. Abdominal pain/ pneumonia with pleuritic pain / right lower lobe pneumonia; continue with IV antibiotics. Continue with IV steroids for pleurisy pain 09/19/23 remains uncomfortable 2. Anemia; transfuse 2 units of packed red blood cells 3. Acute on chronic renal failure; gentle hydration. Monitor renal function 4. Metastatic urothelial carcinoma with liver metastasis; long-term prognosis is very poor. Patient will possibly need discussion re: treatment and then possibly discuss comfort measures 5. GI/DVT prophylaxis 6. Consult Dr. Brice <Myrna Caal - Last Filed: 09/19/23 09:28> - Plan Pt seen and examined. I agree with the note by the DAY CARE SUPERVISOR. Will continue iv abx for pneumoni with pneumonitis. Pt has poor prognosis to the RCC withmets to the liver. His complained of seizure-like activity after coughing at home. Will f/u MRI brain. <Justin Sauceda - Last Filed: 09/19/23 13:16>
--- NOTE | 2023-09-19 09:55 | RAD REPORT ---
EXAM DESCRIPTION: MRI - Brain Wo Cont - 09/19/2023 9:25 am CLINICAL HISTORY: Seizure. Renal cell carcinoma COMPARISON: None TECHNIQUE: Axial, sagittal, and coronal magnetic resonance images of the brain were obtained. Contra st not administered secondary to a significantly elevated creatinine. FINDINGS: A couple of tiny areas of increased signal are present throughout the brain which are nons pecific but probably insignificant. Mild to moderate cerebellar and cerebral atrophy. A small right frontal scalp lipoma Diffusion-weighted/ADC mapping does not reveal evidence of acute infarction. The ventricles are normal caliber. An extra-axial fluid collection is not noted. Fluid within the sinuses/mastoids is not seen IMPRESSION: No acute intracranial abnormality noted
--- NOTE | 2023-09-19 11:16 | P.PN ---
Date of Service: 09/19/23 Vital Signs Temp Pulse Resp BP Pulse Ox 97.2 F 73 28 H 157/74 H 97 09/19/23 09:31 09/19/23 09:31 09/19/23 09:31 09/19/23 09:31 09/19/23 09:31 Medications Acetaminophen (Acetaminophen 500 Mg Tab) 500 mg PO Q4HP PRN PRN Reason: pain/fever Last Admin: 09/19/23 08:30 Dose: 500 mg Albuterol Sulfate (Albuterol 2.5 Mg/3 Ml Neb Tiffanie) 2.5 mg NEB Q6HP PRN PRN Reason: SHORTNESS OF BREATH Enoxaparin Sodium (Enoxaparin 30 Mg/0.3 Ml) 30 mg SQ DAILY [facility] Last Admin: 09/19/23 11:06 Dose: 30 mg Furosemide (Furosemide 20 Mg/ 2ml Vial) 20 mg IV PRBCS [facility] Last Admin: 09/17/23 04:47 Dose: 20 mg Sodium Chloride (Ns 1000 Ml Ivbag) 1,000 mls @ 50 mls/hr IV .Q20H RICK Last Admin: 09/18/23 20:22 Dose: 1,000 mls Levofloxacin/Dextrose (Levaquin 500 Mg/100 Ml Ivpb) 500 mg in 100 mls @ 100 mls/hr IV Q48H RICK Last Admin: 09/18/23 20:22 Dose: 100 mls Ferric Sodium Gluconate Complex 125 mg/ Sodium Chloride 110 mls @ 100 mls/hr IV DAILY [facility] Stop: 09/24/23 10:05 Last Admin: 09/18/23 09:55 Dose: 110 mls Fluconazole (Diflucan 200 Mg/100 Ml Ivpb (Premix)) 200 mg in 100 mls @ 100 mls/hr IV Q24H [facility]; Protocol Last Admin: 09/19/23 11:06 Dose: 100 mls Ipratropium [place] (Ipratropium Brom 0.5mg/2.5ml) 0.5 mg NEB [id number] PRN PRN Reason: SHORTNESS OF BREATH Nystatin (Nystatin 500,000 Unit/5 Ml Udc) 500,000 unit PO TID [facility] Last Admin: 09/19/23 11:06 Dose: 500,000 unit Ondansetron HCl (Ondansetron 4 Mg/2 Ml Vial) 4 mg IV Q6HP PRN PRN Reason: NAUSEA / VOMITING Sucralfate (Sucralfate 1 Gm Tablet) 1 gm PO ACHS RICK Tamsulosin HCl (Tamsulosin 0.4 Mg Sr Cap) 0.4 mg PO DAILY [facility] Last Admin: 09/19/23 11:06 Dose: 0.4 mg Assessment/ Plan: Nephrology Progress Note No Dyspnea No Chest Pain Poor Appetite No Acute Events Overnight Vital Signs, Medications, Blood Work, and Imaging reviewed in the chart NAD. NCAT. MMM. Neck Supple. Normal Respiratory Effort/ CTA. RRR. Abd ND. No C/C. LE Edema none. No Rash. AAO. Normal Speech. Assessment & Plan CKD IV Hx left nephrectomy -No NSAIDs -Gentle IVF with NS Hyponatremia -Continue IVF with NS Hyperkalemia improved Metabolic Acidosis -Start oral bicarb Hyperglycemia -RISS prn Severe malnutrition in the setting of malignancy -Encourage nutrition -Consider protein supplementation Anemia in chronic illness Iron Deficiency -Monitor H&H -PRBC prn -Continue IV iron BPH with LUTS -Continue Flomax Metastatic Urothelial Carcinoma -Follow up with oncology and urology Hospitalist note reviewed [employer] will not pull up the MRI or CT scan at this time EXAM DESCRIPTION: NM - Vent Perfusion VQ Scan - 09/19/2023 9:07 am CLINICAL HISTORY: Shortness of breath COMPARISON: Chest x-ray September 19, 2023 TECHNIQUE: 18.2 Mci [id number] was administered by inhalation. First breath, equilibrium, and washout images of the lungs obtained 6.6 millicuries Technetium-99 MAA was administered intravenously. Anterior, posterior, lateral and oblique views of the lungs were taken. FINDINGS: The lungs demonstrate relatively homogeneous radiotracer activity on ventilation and perfusion sequences. No mismatched segmental or lobar perfusion defects are seen. IMPRESSION: No evidence of a pulmonary embolus EXAM DESCRIPTION: [facility] Single View09/19/2023 9:03 am CLINICAL HISTORY: Shortness breath COMPARISON: September 16, 2023 FINDINGS: A few areas of subsegmental atelectasis within the lung bases Upper lobes appear clear. Heart is normal size
[2023-09-19] MEDS: SUCRALFATE 1 GM TABLET PO SCH (11:40)
[2023-09-19] MEDS: HYDROCODONE/APAP 5/325 MG TAB PO PRN (13:29)
[2023-09-19] MEDS ORDERED: ALBUTEROL 2.5 MG/3 ML NEB SOL NEB PRN (14:43)
--- NOTE | 2023-09-19 14:48 | EKG ---
Test Date: 2023-09-16 Test Time: 10:41:47 Academic Director: ALP MEASUREMENT RESULTS: Intervals: Rate: 120 WV: 134 QRSD: 94 QT: 300 QTc: 424 [place]: P: 39 WV: 134 QRS: -36 T: 58 INTERPRETIVE STATEMENTS: Sinus tachycardia Left axis deviation Abnormal ECG Compared to ECG 08/25/2023 20:09:02 Left-axis deviation now present Sinus rhythm no longer present ST (T wave) deviation no longer present Electronically Signed On 09-19-23 14:40:26 CDT by Damian Jeong
[2023-09-19] MEDS: HYDROMORPHONE HCL 0.5 MG/0.5 ML INJ IV ONE (17:26)
[2023-09-19] MEDS: SODIUM BICARB 325 MG TAB PO SCH (17:26)
[2023-09-20 03:53] LABS: Absolute Basophils 0.1 K/uL (0-0.5); Absolute Eosinophils 0.4 K/uL (0-0.5); Absolute Monocytes 0.9 K/uL (0.1-1.3); Absolute Neutrophil 15.2 K/uL (1.8-8.0); Basophils % 0.3 % (0-1.3); Hematocrit 29.3 % (39.6-49.0); Hemoglobin 9.8 g/dL (13.6-17.9); Lymphocytes % 5.6 % (15.3-44.8); MCH 26.8 pg (27.0-35.0); MCHC 33.4 g/dL (32.0-36.0); MCV 80.2 fL (80-100); MPV 7.2 fL (7.6-11.3); Monocytes % 5.2 % (3.3-12.3); Platelets 256 thou/uL (152-406); RBC Red Blood Cell Count 3.65 M/uL (4.33-5.43); Red Cell Distribution Width 17.5 % (12.1-15.2)
[2023-09-20 04:11] LABS: Anion Gap 11.4 mEq/L (5.0-15.0); Potassium 4.4 mEq/L (3.5-5.1)
[2023-09-20 04:13] LABS: Neutrophils % 86.9 % (41.7-73.7)
--- NOTE | 2023-09-20 08:35 | P.PN ---
Subjective Date of Service: 09/20/23 Subjective: No new changes uncomfortable, right diaphramatic pain, lungs with crackles, rhonchi to right remain. Dilaudid one time dose did help yesterday briefly. <TenMyrna Weber - Last Filed: 09/20/23 08:30> Date of Service: 09/20/23 <Justin Sauceda Rudy - Last Filed: 09/20/23 12:18> Review of Systems 10-point ROS is otherwise unremarkable General: Weakness, As per HPI Gastrointestinal: Abdominal Pain, As per HPI Neurological: As per HPI <Myrna Caal - Last Filed: 09/20/23 08:30> Physical Examination - Vital Signs Temperature: 97.8 F Blood Pressure: 136/60 Pulse: 71 Respirations: 18 Pulse Ox (%): 96 - Physical Exam General: Alert, Oriented x3, Mild distress, Other (remains very uncomfortable) HEENT: Atraumatic, Normocephalic Neck: Supple Respiratory: Rhonchi/gurgles Capillary refill: <2 Seconds Gastrointestinal: Tenderness (very tender to right upper and left lower quad) Musculoskeletal: No clubbing, No swelling Integumentary: No rashes Neurological: Normal speech, Abnormal tone Lymphatics: No axilla or inguinal lymphadenopathy External genitalia: Deferred Rectal: Deferred - Studies Medications List Reviewed: Yes <CaalMyrna Weber - Last Filed: 09/20/23 08:30> Assessment And Plan - Plan - Problems (1) Abdominal pain Current Visit: Yes Status: Acute (2) Acute on Chronic kidney disease Current Visit: Yes Status: Acute (3) S/p nephrectomy Current Visit: Yes Status: Acute (4) Urothelial carcinoma with liver metastasis Current Visit: No Status: Acute (5) Anemia, of chronic disease Current Visit: Yes Status: Acute (6) Pleuritic chest pain, pneumonia Current Visit: Yes Status: Acute (7) Leukocytosis Current Visit: No Status: Acute Plan: 1. Abdominal pain/ pneumonia with pleuritic pain / right lower lobe pneumonia; continue with IV antibiotics. Continue with IV steroids for pleurisy pain 09/19/23 remains uncomfortable 09/20/23 - dilaudid one time dose helped briefly. Probable discharge tomorrow but pt has unrelieved pain. Will place fentanyl patch today and see if it is something he could be discharged with for pain control 2. Anemia; transfuse 2 units of packed red blood cells, 5//24-h/h stable 3. Acute on chronic renal failure; gentle hydration. Monitor renal function, slow improvement 4. Metastatic urothelial carcinoma with liver metastasis; long-term prognosis is very poor. Patient will possibly need discussion re: treatment and then po ssibly discuss comfort measures 5. GI/DVT prophylaxis 6. Consult Dr. Brcie <Myrna Caal - Last Filed: 09/20/23 08:30> - Plan Pt seen and examined. I agree with the note by the REGIONAL FORESTER. Continue iv abx for the pneumonia. WBC is 17.5. V/Q scan is unremarkable. MRI brain is unremarkable. Pt will follow up with Dr. Gandara in clinic for further work up. W <Justin Sauceda - Last Filed: 09/20/23 12:18>
[2023-09-20] MEDS: FENTANYL 25 MCG/PATCH TD ONE (09:42)
[2023-09-20] MEDS: HYDROMORPHONE HCL 0.5 MG/0.5 ML INJ IV PRN (19:59)
[2023-09-21] MEDS: HYDROMORPHONE HCL 0.5 MG/0.5 ML INJ IV PRN (03:47)
[2023-09-21 03:58] LABS: Absolute Eosinophils 0.3 K/uL (0-0.5); Absolute Lymphocytes (CBC) 0.9 K/uL (0.7-4.9); Absolute Monocytes 0.9 K/uL (0.1-1.3); Absolute Neutrophil 17.1 K/uL (1.8-8.0); Basophils % 0.2 % (0-1.3); Eosinophils % 1.8 % (0-4.4); Hemoglobin 8.9 g/dL (13.6-17.9); Lymphocytes % 4.8 % (15.3-44.8); MCH 26.6 pg (27.0-35.0); MCHC 32.9 g/dL (32.0-36.0); MCV 80.8 fL (80-100); MPV 7.6 fL (7.6-11.3); Monocytes % 4.4 % (3.3-12.3); Platelets 220 thou/uL (152-406); RBC Red Blood Cell Count 3.34 M/uL (4.33-5.43); Red Cell Distribution Width 17.5 % (12.1-15.2)
[2023-09-21 04:16] LABS: Neutrophils % 88.8 % (41.7-73.7)
[2023-09-21 04:24] LABS: Anion Gap 9.1 mEq/L (5.0-15.0); Potassium 4.1 mEq/L (3.5-5.1)
--- NOTE | 2023-09-21 08:54 | P.DS ---
Admission Date: 09/16/23 Discharge Date: 09/21/23 Brief History of Present Illness: Patient is a 73-year-old gentleman who has a history of renal cell cancer who presents to the emergency room with abdominal pain. Patient was in the hospital on September 06 for a liver biopsy. Since that time patient has noticed he has been having some abdominal discomfort which has been gradually getting worse. Patient was seen in the emergency room, and at that time there was concern for pleurisy. Patient was found to have acute renal insufficiency. Patient has a prior nephrectomy because of renal cell carcinoma. Patient follows up with nephrology, Dr. Brice. Patient was also noted to be anemic. Patient's hem oglobin was down to 7.9. Patient given IV fluids and patient's clinical status has improved. Imaging study is pending along with CT of the abdomen/pelvis. If patient with any signs of hepatic bleeding then patient may need transfer to a tertiary care facility. However, if everything looks fairly stable then patient can be admitted to the hospital and will consider continuing with anticoagulati on for ruling out a possible pulmonary embolism. Patient will need a VQ scan performed. 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 Patient's long-term prognosis is poor, and patient will need continuing follow-up with urology. Hospital Course: Mr. Grace underwent a VQ scan which was negative for pulmonary embolism, MRI of the brain did not show metastasis at this time. He states that when he is still and either in a reclined position or lying flat the pleuritic type pain is not intense. His solitary renal function has improved. He states he is ready to go home. He has close follow-up with Dr. Brice. <Myrna Caal - Last Filed: 09/21/23 08:55> Admission Date: 09/16/23 Discharge Date: 09/21/23 Hospital Course: Pt seen and examined. I agree with the note by the CENTRAL STERILIZATION TECHNICIAN. Cr is improving. V/Q scan is unremarkable. MRI brain is unremarkable. Pt need to follow up with Dr. Gandara in clinic. Ok to discharge pt. <Justin Sauceda - Last Filed: 09/21/23 12:20> Disposition: ROUTINE DISCHARGE Discharge Condition: FAIR Vital Signs/Physical Exam: Temp Pulse Resp BP Pulse Ox 98.8 F 83 16 132/63 96 09/21/23 08:00 09/21/23 08:00 09/21/23 08:00 09/21/23 08:00 09/21/23 08:00 General: Alert, Oriented x3, Cooperative, Other (uncomfortable) HEENT: Atraumatic, Normocephalic Neck: Supple Respiratory: Normal air movement Cardiovascular: Regular rate/rhythm Capillary refill: <2 Seconds Gastrointestinal: Tenderness (ruq, and up to right chest wall) Musculoskeletal: No clubbing Integumentary: No rashes Neurological: Normal speech, Normal tone Lymphatics: No axilla or inguinal lymphadenopathy External genitalia: Deferred Rectal: Deferred Laboratory Data at Discharge: WBC 19.20 thou/uL (4.3-10.9) H 09/21/23 03:02 Hgb 8.9 g/dL (13.6-17.9) L D 09/21/23 03:02 Hct 27.0 % (39.6-49.0) L 09/21/23 03:02 Plt Count 220 thou/uL (152-406) 09/21/23 03:02 PT 14.1 SECONDS (9.5-12.5) H 09/16/23 10:58 INR 1.29 09/16/23 10:58 APTT 29.3 SECONDS (24.3-36.9) 09/16/23 10:58 Sodium 131 mEq/L (136-145) L 09/21/23 03:02 Potassium 4.1 mEq/L (3.5-5.1) 09/21/23 03:02 BUN 45 mg/dL (7-18) H 09/21/23 03:02 Creatinine 2.58 mg/dL (0.70-1.30) H 09/21/23 03:02 Glucose 153 mg/dL (74-106) H 09/21/23 03:02 Phosphorus 4.6 mg/dL (2.5-4.9) 09/18/23 11:23 Magnesium 2.2 mg/dL (1.6-2.4) 09/19/23 03:33 Total Bilirubin 0.5 mg/dL (0.2-1.0) 09/19/23 03:33 AST 24 U/L (15-37) 09/19/23 03:33 ALT 42 U/L (16-61) 09/19/23 03:33 Alkaline Phosphatase 465 U/L (45-117) H 09/19/23 03:33 Triglycerides 82 mg/dL (<150) 09/17/23 06:06 Cholesterol 61 mg/dL (<200) 09/17/23 06:06 HDL Cholesterol 26 mg/dL (40-60) L 09/17/23 06:06 Cholesterol/HDL Ratio 2.35 09/17/23 06:06 <Caal,Myrna Gus - Last Filed: 09/21/23 08:55> Vital Signs/Physical Exam: Temp Pulse Resp BP Pulse Ox 98.9 F 93 H 16 143/65 H 96 09/21/23 11:37 09/21/23 11:37 09/21/23 11:37 09/21/23 11:37 09/21/23 11:37 Laboratory Data at Discharge: WBC 19.20 thou/uL (4.3-10.9) H 09/21/23 03:02 Hgb 8.9 g/dL (13.6-17.9) L D 09/21/23 03:02 Hct 27.0 % (39.6-49.0) L 09/21/23 03:02 Plt Count 220 thou/uL (152-406) 09/21/23 03:02 PT 14.1 SECONDS (9.5-12.5) H 09/16/23 10:58 INR 1.29 09/16/23 10:58 APTT 29.3 SECONDS (24.3-36.9) 09/16/23 10:58 Sodium 131 mEq/L (136-145) L 09/21/23 03:02 Potassium 4.1 mEq/L (3.5-5.1) 09/21/23 03:02 BUN 45 mg/dL (7-18) H 09/21/23 03:02 Creatinine 2.58 mg/dL (0.70-1.30) H 09/21/23 03:02 Glucose 153 mg/dL (74-106) H 09/21/23 03:02 Phosphorus 4.6 mg/dL (2.5-4.9) 09/18/23 11:23 Magnesium 2.2 mg/dL (1.6-2.4) 09/19/23 03:33 Total Bilirubin 0.5 mg/dL (0.2-1.0) 09/19/23 03:33 AST 24 U/L (15-37) 09/19/23 03:33 ALT 42 U/L (16-61) 09/19/23 03:33 Alkaline Phosphatase 465 U/L (45-117) H 09/19/23 03:33 Triglycerides 82 mg/dL (<150) 09/17/23 06:06 Cholesterol 61 mg/dL (<200) 09/17/23 06:06 HDL Cholesterol 26 mg/dL (40-60) L 09/17/23 06:06 Cholesterol/HDL Ratio 2.35 09/17/23 06:06 <Justin Sauceda - Last Filed: 09/21/23 12:20> Diet: Renal Activity: Fall precautions <Caal,Myrna Gus - Last Filed: 09/21/23 08:55> <Justin Sauceda - Last Filed: 09/21/23 12:20> Home Medications: Latanoprost/Pf [Latanoprost 0.005% Eye Drop] 1 drop OPTH BEDTIME 07/23/20 Mv-Min/Folic/K1/Lycopen/Lutein [Centrum Silver Men Tablet] 1 each PO DAILY 07/23/20 Tamsulosin [Flomax*] 0.4 mg PO DAILY 07/23/20 Albuterol Sulfate [Ventolin Hfa] 18 gm IH PRN PRN 04/29/22 Dorzolamide HCl/Pf [Dorzolamide 2% Eye Drop] 1 drop RIGHT EYE BID 04/29/22 Losartan Potassium [Cozaar] 25 mg PO DAILY 04/29/22 Pantoprazole [Protonix Tab*] 40 mg PO DAILY 04/29/22 Rosuvastatin [Crestor*] 20 mg PO DAILY 04/29/22 Cholecalciferol (Vitamin D3) [Vitamin D3] 2,000 unit PO DAILY AT SUPPER 02/21/23 Bumetanide 0.5 mg PO BID 05/18/23 Codeine/APAP [Tylenol #3*] 1 tab PO Q6HP PRN #12 tab 01/09/24 Fluticasone/Salmeterol [Advair Hfa 115-21 Mcg Inhaler] 2 puff IH BEDTIME 09/17/23 Montelukast [Singulair*] 10 mg PO BEDTIME 09/17/23 Physician Discharge Instructions: Continue ad jael activity. Take home meds as prescribed. Follow up with your PCP and Dr. Gandara in clinic within 1 - weeks. Mr. Grace underwent a VQ scan which was negative for pulmonary embolism, MRI of the brain did not show metastasis at this time. He states that when he is still and either in a reclined position or lying flat the pleuritic type pain is not intense. His solitary renal function has improved. He states he is ready to go home. He has close follow-up with Dr. Brice. Okay to DC IV and DC home Follow-up with Dr. Brice in 1 week. Follow-up with hematology/oncology in 1 to 2-week Please call the inpatient unit for any questions or concerns regarding hospital stay Return to the ER for worsening symptoms Followup: Robin Brice DO [Primary Care Provider] -
[2023-09-21 09:57] VITALS: O2SAT 96
[2023-09-21 11:48] VITALS: BP 143/65; TEMP 98.9
--- NOTE | 2023-09-21 21:06 | P.PN ---
Date of Service: 09/21/23 Vital Signs Temp Pulse Resp BP Pulse Ox 98.9 F 93 H 16 143/65 H 96 09/21/23 11:37 09/21/23 11:37 09/21/23 11:37 09/21/23 11:37 09/21/23 11:37 Assessment/ Plan: Nephrology Progress Note No Dyspnea No Chest Pain Abdominal pain No Acute Events Overnight Vital Signs, Medications, Blood Work, and Imaging reviewed in the chart NAD. NCAT. MMM. Neck Supple. Normal Respiratory Effort/ CTA. RRR. Abd ND. No C/C. LE Edema none. No Rash. AAO. Normal Speech. Assessment & Plan CKD IV Hx left nephrectomy -No NSAIDs Hyponatremia -Continue IVF with NS Hyperkalemia improved Metabolic Acidosis -Continue oral bicarb Hyperglycemia -RISS prn Severe malnutrition in the setting of malignancy -Encourage nutrition -Consider protein supplementation Anemia in chronic illness Iron Deficiency -Monitor H&H -PRBC prn -Continue IV iron BPH with LUTS -Continue Flomax Metastatic Urothelial Carcinoma -Follow up with oncology and urology Hospitalist note reviewed [id number] EXAM DESCRIPTION: MRI - Brain Wo Cont - 09/19/2023 9:25 am CLINICAL HISTORY: Seizure. Renal cell carcinoma COMPARISON: None TECHNIQUE: Axial, sagittal, and coronal magnetic resonance images of the brain were obtained. Contrast not administered secondary to a significantly elevated creatinine. FINDINGS: A couple of tiny areas of increased signal are present throughout the brain which are nonspecific but probably insignificant. Mild to moderate cerebellar and cerebral atrophy. A small right frontal scalp lipoma Diffusion-weighted/ADC mapping does not reveal evidence of acute infarction. The ventricles are normal caliber. An extra-axial fluid collection is not noted. Fluid within the sinuses/mastoids is not seen IMPRESSION: No acute intracranial abnormality noted EXAM DESCRIPTION: NM - Vent Perfusion VQ Scan - 09/19/2023 9:07 am CLINICAL HISTORY: Shortness of breath COMPARISON: Chest x-ray September 19, 2023 TECHNIQUE: 18.2 Mci [id number] was administered by inhalation. First breath, equilibrium, and washout images of the lungs obtained 6.6 millicuries Technetium-99 MAA was administered intravenously. Anterior, posterior, lateral and oblique views of the lungs were taken. FINDINGS: The lungs demonstrate relatively homogeneous radiotracer activity on ventilation and perfusion sequences. No mismatched segmental or lobar perfusion defects are seen. IMPRESSION: No evidence of a pulmonary embolus [facility] CLINICAL HISTORY: Shortness breath COMPARISON: September 16, 2023 FINDINGS: A few areas of subsegmental atelectasis within the lung bases Upper lobes appear clear. Heart is normal size
== END 2023-09-21 14:40 | disposition home or self-care (01) | DRG 871 ==
LOC: ER 10:31 → ERHOLD 17:47 → 3RD-ICU 09-17 00:53 → 4TH 09-17 18:20
PROVIDERS: ADMIT Hospitalist; ATTEND Hospitalist
PROC: 30233N1 Transfusion of Nonautologous Red Blood Cells into Peripheral Vein, Percutaneous Approach (ICD-10-PCS; principal; 2023-09-16)
DX: A41.9 Sepsis, unspecified organism (principal); E43 Unspecified severe protein-calorie malnutrition; J15.9 Unspecified bacterial pneumonia; J96.01 Acute respiratory failure with hypoxia; B37.0 Candidal stomatitis; C78.7 Secondary malignant neoplasm of liver and intrahepatic bile duct; R64 Cachexia; N17.9 Acute kidney failure, unspecified; E87.1 Hypo-osmolality and hyponatremia; N18.4 Chronic kidney disease, stage 4 (severe); E87.20 Acidosis, unspecified; I12.9 Hypertensive chronic kidney disease with stage 1 through stage 4 chronic kidney disease, or unspecified chronic kidney disease; E11.22 Type 2 diabetes mellitus with diabetic chronic kidney disease; E11.65 Type 2 diabetes mellitus with hyperglycemia; D63.1 Anemia in chronic kidney disease; D50.9 Iron deficiency anemia, unspecified; E87.5 Hyperkalemia; E78.5 Hyperlipidemia, unspecified; N40.1 Benign prostatic hyperplasia with lower urinary tract symptoms; K21.9 Gastro-esophageal reflux disease without esophagitis; Z90.5 Acquired absence of kidney; Z88.8 Allergy status to other drugs, medicaments and biological substances; Z68.31 Body mass index [BMI] 31.0-31.9, adult; Z79.899 Other long term (current) drug therapy; Z87.891 Personal history of nicotine dependence; Z85.528 Personal history of other malignant neoplasm of kidney
CPT/HCPCS: 36415; 36430; 70551; 71045; 74176; 78582; 80048; 80053; 80061; 82607; 82947; 83540; 83605; 83735; 83880; 84100; 84145; 84484; 85025; 85044; 85379; 85610; 85730; 86850; 86900; 86901; 86920; 93005; 93970; 94760; 99285; A9540; A9558; J1170; J1450; J1650; J1940; J2916; J2919; J2920; J7030; J7050; P9016